=== PATIENT | male | born 1945 | race Caucasian/White ===

== ENCOUNTER 2020-06-17 14:22 | Emergency (ER) | payer MEDICARE, OTHER, SELFPAY ==
[2020-06-17] VITALS (26 sets, daily range): BP systolic 97–136; BP diastolic 55–90; PULSE 69–102; RESP 16–27; TEMP 36.6; O2SAT 95–99
--- NOTE | ~2020-06-17 | CT_ITS ---
EXAMINATION: CT abdomen pelvis w con DATE: 06/17/2020 21:03 INDICATION: Flank pain and vomiting TECHNIQUE: Computed tomography (CT) of the abdomen and pelvis was performed with 100 cc Omnipaque 350 intravenous contrast. Automated exposure control and iterative reconstruction technique were employe d. Exam dose: 895.05 mGy-cm total exam DLP. COMPARISON: 05/13/2018 CT abdomen and pelvis FINDINGS: There is some peripheral interstitial fibrosis and honeycombing in the lower lobes primaril y; consider mild usual interstitial pneumonia. There are emphysematous change of the lungs, most nota jose in the lingula. Normal heart size. No pericardial or pleural effusion. Coronary artery calcification. The liver, gallbladder, bile ducts, pancreas, pancreatic duct, spleen and adrenal glands are unremark able. 2.1 cm upper pole left renal cyst and very small lower pole left renal cyst. 6 mm probable mid right renal cyst. No urinary tract calculus or hydroureteronephrosis is detected. There is atherosclerotic calcification and mild distal abdominal aortic ectasia, but no aneurysm. No intraperitoneal or retroperitoneal or pelvic mass lesion or adenopathy or ascites is detected. Normal appendix. There are scattered colonic diverticula; no CT evidence of diverticulitis. There are some fluid level s in the small bowel and colon which may indicate enterocolitis. No bowel obstruction, bowel wall thi ckening, pneumatosis or intraperitoneal free air. Mild prostate enlargement. The urinary bladder and prostate gland and seminal vesicles are otherwise unremarkable. Status post mesh anterior abdominal wall repair. Small fat-containing umbilical hernia. Recent anterior right sixth, seventh and eighth rib fractures. Diffuse idiopathic skeletal hyperostosis of the thoracic spine. Mild degenerative change of the lumba r spine. Probable bone island of left femoral head. IMPRESSION: Emphysema and possible mild usual interstitial pneumonia Probable renal cysts Diverticulosis of the colon; occasional small bowel air-fluid levels and some colonic air-fluid level s, which may indicate enterocolitis Recent anterior right sixth, seventh and eighth rib fractures Reviewed, dictated and finalized at [facility]. Reviewed, dictated and finalized at location [facility]. ID CAR MECHANIC IMPRESSION: Emphysema and possible mild usual interstitial pneumonia Probable renal cysts Diverticulosis of the colon; occasional small bowel air-fluid levels and some c olonic air-fluid levels, which may indicate enterocolitis Recent anterior right sixth, seventh and eighth rib fractures
--- NOTE | ~2020-06-17 | XR_ITS ---
EXAMINATION: XR chest 1V portable DATE: 06/17/2020 16:26 INDICATION: Cough and shortness of breath. TECHNIQUE: A single frontal view of the chest was obtained. COMPARISON: Chest single view 05/13/2018, CT abdomen and pelvis 05/13/2018, chest CT 08/30/2007 FINDINGS: There are airspace opacities in the midlung zones bilaterally. There is a diffuse interstit ial pattern in the lungs. No pleural effusion or pneumothorax. The heart size is normal. IMPRESSION: 1. Diffuse lung disease, likely pneumonia or mild pulmonary edema superimposed on a combination of em physema and mild chronic interstitial lung disease. Reviewed, dictated and finalized at location [facility]. NG SUPERVISOR IMPRESSION: 1. Diffuse lung disease, likely pneumonia or mild pulmonary edema superimposed on a combination of emphysema and mild chronic interstitial lung disease.
--- NOTE | 2020-06-17 14:31 | PC.NURSE ---
Pt states is taking ibuprofen as needed, but is allergic in heavy doses .
--- NOTE | 2020-06-17 14:32 | ECG_ITS ---
Measurements Intervals [place] Rate: 78 P: 51 NC: 168 QRS: 37 QRSD: 85 T: 24 QT: 382 QTc: 435 Interpretive Statements SINUS RHYTHM VENTRICULAR PREMATURE COMPLEXES EARLY PRECORDIAL R/S TRANSITION BASELINE ARTIFACT- I, III, AVR, AVL BORDERLINE ECG Electronically Signed On 06-17-2020 15:04:06 MOLECULAR GENETIC PATHOLOGIST by Humberto Marcus D.O.
[2020-06-17 14:50] LABS: Basophils Percent Auto 0.3 % (0.2-1.2); Eosinophils Percent Auto 0.5 % (0-4.4); Hematocrit 37.8 % (42.0-52.0); Hemoglobin 12.4 g/dL (14.0-18.0); Immature Granulocyte Absolute 0.04 K/mm3 (0.00-0.031); Immature Granulocyte Percent A 0.6 % (0-0.5); Lymphocytes Absolute Auto 0.67 K/mm3 (0.9-3.2); Lymphocytes Percent Auto 10.8 % (18.3-44.2); Mean Corpuscular HGB Conc 32.8 g/dl (32-36); Mean Corpuscular Hemoglobin 27.4 pg (26-34); Mean Corpuscular Volume 83.4 fl (80-100); Mean Platelet Volume 11.3 fl (7.4-10.4); Monocytes Absolute Auto 0.6 K/mm3 (0.1-0.6); Monocytes Percent Auto 9.2 % (2.6-8.5); Neutrophils Absolute Auto 4.9 K/mm3 (1.3-6.7); Neutrophils Percent Auto 78.6 % (45.5-73.1); Platelet Count Result 169 k/mm3 (150-375); Red Blood Count 4.53 M/mm3 (4.6-6.20); Red Cell Distribution Width 13.9 % (11.5-14.5); White Blood Count 6.2 K/mm3 (4.5-10.0)
[2020-06-17 15:03] LABS: Alanine Aminotransferase 22 U/L (4-50); Albumin Level 4.3 g/dL (3.5-5.1); Alkaline Phosphatase 88 U/L (38-126); Anion Gap 11 mmol/L (8-16); Aspartate Amino Transferase 36 U/L (17-59); Bilirubin,Total 0.7 mg/dL (0.2-1.3); Blood Urea Nitrogen 28 mg/dL (9-20); Calcium 9.5 mg/dL (8.4-10.2); Carbon Dioxide 26 mmol/L (22-30); Chloride 100 mmol/L (98-107); Estimated CRCL calculation 53 ml/min; Estimated Glomerular Filt Rate 54; Glucose 109 mg/dL (75-110); Potassium 4.7 mmol/L (3.4-5.0); Sodium 137 mmol/L (137-145)
--- NOTE | 2020-06-17 16:30 | PC.NURSE ---
patient brought back to ED room H2 with c/o nausea and cough. see triage notes. patient has been in our waiting area for a few hours now due to no available beds in ED. labs were drawn in triage. patient has urine specimen at bedside but lid has fallen off and urine is in bag. patient awae that we will need another urine specimen. SL inserted. patient placed on nurse monitoring. patient denies known exposure to Covid. hx of bronchitis and pneumonia in the past. denies known fever at home. alert. oriented.
[2020-06-17 16:56] LABS: Lipase 187 U/L (23-300)
[2020-06-17 17:06] LABS: NT Pro B Type Natriuretic Pept 94 PG/ML (5-100)
--- NOTE | 2020-06-17 17:30 | PC.NURSE ---
resting on stretcher. no change in condition. aware of current treatment plan and expected treatment time. on bus driver/monitor. has call light in reach.
[2020-06-17 18:30] LABS: Lactic Acid Reflex 1.1 mmol/L (0.7-2.1)
[2020-06-17] MEDS: SODIUM CHLORIDE 0.9% IV 1,000 ML 999 ML IV CONT (18:35)
--- NOTE | 2020-06-17 18:35 | PC.NURSE ---
patient has ice water. IVF continue. will attempt to give us another urine specimen. urinal at bedside. now in room. both updated on current treatment plan and expected wait time.
--- NOTE | 2020-06-17 19:11 | ED.WEAKNESS ---
HPI - Weakness General Chief complaint: Weakness Stated complaint: cough x7 days, vomiting, low back pain Time Seen by Provider: 06/17/20 16:24 Source: RN notes reviewed History of Present Illness HPI Narrative: Patient presents emergency room from home for cough. Patient states he has had a cough for the past 10 days that has been minimally productive of yellow sputum. States that fit with this he has had a general feeling of fatigue also notes some bilateral lower back pain and intermittent nausea and vomiting. He denies having fevers or chills chest pain vision changes numbness or tingling in extremities abdominal pain diarrhea or any other symptoms. Patient states he does have a history of COPD but is not on any inhalers states he is scheduled to have his first appointment with Dr. Qureshi in 2 days Related Data Allergies Allergy/AdvReac Type Severity Reaction Status Date / Time ibuprofen Allergy Unknown Swelling Verified 03/01/17 19:06 Review of Systems Review of Systems: Narrative: Gen.: Denies fevers or chills Eyes: Denies eye pain or visual change ENT: Denies congestion Respiratory: Denies shortness of breath reports cough CV: Denies chest pain or palpitations GI: Denies abdominal pain or diarrhea reports intermittent nausea and emesis denies burning, urgency, frequency or hematuria Musculoskeletal: Reports low back pain Neuro: Denies numbness, tingling, weakness or focal weakness Skin: Denies rash Except as documented, all other systems reviewed and negative [facility] Past Medical History Medical History (Updated 06/17/20 @ 21:51 by Prieto Esqueda DO) COPD (chronic obstructive pulmonary disease) Social History Social History (Updated 06/17/20 @ 21:49 by Prieto Esqueda DO) Smoking status: Never smoker Gender identity (if verbalized by the patient): Male Exam Narrative: Exam Narrative: APPEARANCE: No acute distress, nontoxic, resting in bed EYES: EOMI HEENT: Normocephalic, atraumatic, OMM RESPIRATORY: No respiratory distress Clear to auscultation bilaterally with no rhonchi wheezing or rales. CARDIOVASCULAR: Regular rate and rhythm without murmurs rubs or gallops. ABDOMINAL: Soft, nontender, nondistended, no rebound or guarding MUSCULOSKELETAl: Moves all extremities. No clubbing, cyanosis or edema. Back: No midline thoracic or lumbar tenderness palpation, no tenderness palpation of the bilateral flanks or lower lumbar spine NEURO: Awake and alert x 4. Following commands, speech normal, no focal deficits SKIN:: Warm, dry. No rashes lesions or abrasions PSYCHIATRIC: Normal affect/mood, Course Course Emergency Course: Review patient CT scan of the abdomen pelvis got enterocolitis is the patient has no abdominal pain no diarrhea no current nausea Discussed with patient his CT scan of his chest. He states he did have a fall approximately 1 month ago when he struck the right side of his ribs and believes this is when he had his rib fractures Discussed with patient results of workup and diagnosis. Discussed need for follow-up with primary care, proper use of medication, and reasons to return to the emergency department. Patient understands and agrees to current treatment plan discussed Covid swab and need for self isolation Vital Signs Vital signs: Vital Signs Temperature 97.9 F 06/17/20 14:27 Pulse Rate 76 06/17/20 14:27 Respiratory Rate 18 06/17/20 14:27 Blood Pressure 98/60 L 06/17/20 14:27 Pulse Oximetry 98 06/17/20 14:27 Temperature 97.9 F 06/17/20 14:27 Pulse Rate 74 06/17/20 20:45 Respiratory Rate 20 06/17/20 20:45 Blood Pressure 97/58 L 06/17/20 17:46 Pulse Oximetry 98 06/17/20 20:45 MDM - Weakness Lab Data Result diagrams: 06/17/20 14:35 06/17/20 14:35 Labs: Lab Results 06/17/20 06/17/20 06/17/20 Range/Units 14:35 14:35 14:35 WBC 6.2 (4.5-10.0) K/mm3 RBC 4.53 L (4.6-6.20) M/mm3 Hgb 12.4 L (14.0-18.0) g
[2020-06-17 19:41] LABS: Add Urine Microscopic? YES; Appearance Urine Cloudy (Clear); Bacteria Urine Trace /hpf; Bilirubin Urine Negative (Negative); Blood Urine Negative (Negative); Color Urine Yellow (Yellow); Glucose Urine UA Negative (Negative); Ketones Urine Negative (Negative); Leukocyte Esterase Ur Negative LEU/UL (Negative); Mucus Urine Rare /lpf; Nitrate Urine Negative (Negative); Protein Urine 2+ mg/dL (Negative); RBC Urine 0-2 /hpf (0-2); Specific Grav Ur 1.029 (1.001-1.035); Squamous Epithelial Cell Urine Few /hpf (Few); Urobilinogen Urine Negative mg/dL (<2.0); WBC Urine 0-3 /hpf
--- NOTE | 2020-06-17 19:49 | PC.NURSE ---
resting on stretcher. in room. waiting for CT. urine resulted. denies needs. call light in reach.
--- NOTE | 2020-06-17 21:10 | PC.NURSE ---
patient back in room from CT. waiting for results. back on monitor. in room. patient wants to eat. advised to wait for CT results.
--- NOTE | 2020-06-17 22:25 | PC.NURSE ---
received order from MD for Covid swab prior to discharge.
[2020-06-18 14:13] LABS: SARS-CoV-2 RNA PCR Positive
== END 2020-06-17 22:37 | disposition home or self-care (01) ==
PROVIDERS: Emergency Medicine; Emergency Provider Emergency Medicine
DX: U07.1 COVID-19 (principal); K57.30 Diverticulosis of large intestine without perforation or abscess without bleeding; J44.9 Chronic obstructive pulmonary disease, unspecified
CPT/HCPCS: 36415; 71045; 74177; 80053; 81001; 83605; 83690; 83880; 85025; 87040; 87635; 93005; 96360; 99284; C9803; J7030; Q9967; U0003

== ENCOUNTER 2024-01-13 15:16 | Inpatient (IN) | payer MEDICARE, OTHER, SELFPAY ==
--- NOTE | ~2024-01-13 | CT_ITS ---
CTA brain carotid Ordering provider: Landon Browning PA-C History: . diplopia, dizziness . Comparison: None. Technique: CT angiogram head and neck was performed following timed intravenous injection of contrast . Thin slice axial images and reformatted coronal images were obtained. Three dimensional reformatted images of the brain were also obtained using a [employer] workstation. Radiation reduction technique utilized. FINDINGS: HEAD: --ANTERIOR AND MIDDLE CEREBRAL ARTERIES AND BRANCHES: Normal caliber and contour. --INTERNAL CAROTID ARTERIES: no significant stenosis. No occlusion. --BASILAR ARTERY AND BRANCHES: Small caliber and normal contour. No atheromatous disease. --POSTERIOR CEREBRAL ARTERIES: Normal caliber and contour --POSTERIOR COMMUNICATING ARTERIES: Both continues as posterior cerebral arteries. --ANEURYSM: None visualized. --BRAIN: Please refer to report of CT head performed the same day. --BONES AND SUPERFICIAL SOFT TISSUES: Please refer to report of CT head performed the same day. --PARANASAL SINUSES AND MASTOIDS: Please refer to report of CT head done the same day. NECK: --RIGHT CERVICAL CAROTID SYSTEM: Mild atheromatous disease of the carotid bulb and proximal internal carotid artery without significant stenosis. Percent stenosis per NASCET criteria is 20%. No carotid dissection. Otherwise, no significant atheromatous disease or stenosis of the cervical carotid syste m. --LEFT CERVICAL CAROTID SYSTEM: Mild atheromatous disease of the carotid bulb and proximal internal c arotid artery without significant stenosis. Percent stenosis per NASCET criteria is 30%. No carot id dissection. Otherwise, no significant atheromatous disease or stenosis of the cervical carotid system. --VERTEBRAL ARTERIES: Normal caliber and contour. --VISUALIZED AORTIC ARCH AND BRANCHING VESSELS: Mild atheromatous disease but no significant stenosis . --SOFT TISSUES: Normal. --CERVICAL SPINE: Age appropriate degenerative changes. IMPRESSION: 1. CTA head and neck. Percent stenosis per NASCET criteria is 30% on the left side. 2. Normal intracranial CTA. Reviewed, dictated and finalized at location A.
--- NOTE | ~2024-01-13 | MR_ITS ---
EXAMINATION: MR brain/brain stem wo/w con DATE: 01/14/2024 09:04 INDICATION: Posterior circulation stroke. TECHNIQUE: Magnetic resonance imaging (MRI) of the brain and brainstem was performed without intraven ous contrast. Sequences included sagittal and axial T1-weighted SE, axial diffusion-weighted FS SE, a xial T2*-weighted GRE, axial T2-weighted FLAIR Propeller, and axial T2-weighted Propeller. Apparent d iffusion coefficient (ADC) maps were created. 20 cc contrast administered. COMPARISON: CTA brain dated 01/13/2024. FINDINGS: Generalized atrophy. There are scattered moderate periventricular and subcortical white mat ter changes, most likely related to small vessel ischemic disease (microangiopathy). No acute intracr anial hemorrhage, infarction, mass or mass effect. No abnormal contrast enhancement. Orbits are symme tric without disconjugate gaze. Paranasal sinuses are unremarkable. Structures of the posterior fossa including 7/8th cranial nerve complexes are unremarkable. IMPRESSION: 1. No acute intracranial abnormality. 2: Chronic age-related findings. Reviewed, dictated and finalized at location B.
--- NOTE | ~2024-01-13 | CT_ITS ---
CT brain wo con Ordering provider: Landon Browning PA-C History: 78 years Male with . diplopia, dizziness . Comparison: None. Technique: CT of the head without contrast. Radiation reduction technique utilized. FINDINGS: BRAIN PARENCHYMA AND CSF SPACES: Deep white matter ischemic changes. Slight ventricular dilatation. N o midline shift, mass effect or hemorrhage. The brain parenchyma and CSF spaces are otherwise normal . VISUALIZED PARANASAL SINUSES: Well aerated. MASTOIDS: Well aerated. BONES: The bones appear intact. SOFT TISSUES: Visualized nasopharynx is normal. Superficial soft tissues are normal. IMPRESSION: No acute intracranial findings. Reviewed, dictated and finalized at location A.
[2024-01-13 15:28] VITALS: BP 136/73; PULSE 58; RESP 20; TEMP 36.4; O2SAT 97
--- NOTE | 2024-01-13 17:24 | ED.DIZZY ---
HPI - Dizziness General Chief Complaint: Dizziness <Landon Browning PA-C - Last Filed: 01/13/24 21:06> Stated Complaint: vision changes since tuesday <Landon Browning PA-C - Last Filed: 01/13/24 21:06> Time Seen by Provider: 01/13/24 17:01 <Landon Browning PA-C - Last Filed: 01/13/24 21:06> Source: patient <MEMO Rodríguez Last Filed: 01/13/24 21:06> Mode of arrival: ambulatory <MEMO Rodríguez Last Filed: 01/13/24 21:06> Limitations: no limitations <MEMO Rodríguez Last Filed: 01/13/24 21:06> History of Present Illness HPI Narrative: This is a 78-year-old male with PMH of CAD, HTN, T2 dm, COPD who presents to the ED for chief complaint of type 0 P a and dizziness for the past 4 5 days. Patient reports that the vision changes seem to be gradually worsening. Reports it is a binocular diplopia. When 1 eye is, it covered goes away. Reports some dull headache, worse over the right eye. Denies pain with eye movements. He also reports feeling quite dizzy. He reports history of vertigo in the past but this seems different. Denies chest pain, shortness of breath, cough, focal numbness, weakness, visual field defect. His is here with him and denies any abnormal behaviors, confusion, falls or head injury. Denies slurred speech or speech changes. Last known well 5 days ago. <Landon Browning PA-C - Last Filed: 01/13/24 21:06> Related Data Home Medications: Home Medications Medication Instructions Recorded Confirmed aspirin 81 mg tablet,delayed 81 mg PO DAILY 06/19/20 07/19/22 release (Adult Aspirin Regimen) atorvastatin 40 mg tablet 40 mg PO DAILY 06/19/20 07/19/22 lisinopril 20 mg tablet 20 mg PO DAILY 06/19/20 07/19/22 metoprolol tartrate 25 mg tablet 12.5 mg PO BID 06/19/20 07/19/22 omeprazole 20 mg capsule,delayed 20 mg PO DAILY 06/19/20 07/19/22 release amlodipine 5 mg tablet (Norvasc) 5 mg PO DAILY 01/13/24 01/13/24 folic acid 1 mg tablet 01/13/24 folic acid 1 mg tablet 01/13/24 lisinopril 10 mg tablet mg 01/13/24 lisinopril 10 mg tablet mg 01/13/24 sertraline 100 mg tablet (Zoloft) 100 mg PO DAILY 01/13/24 01/13/24 <Landon Browning PA-C - Last Filed: 01/13/24 21:06> Allergies/Adverse Reactions: Allergies Allergy/AdvReac Type Severity Reaction Status Date / Time ibuprofen Allergy Unknown Swelling Verified 10/20/23 14:10 <MEMO Rodríguez Last Filed: 01/13/24 21:06> Review of Systems Review of Systems: All systems as dictated in HPI <MEMO Rodríguez Last Filed: 01/13/24 21:06> PMFSH Past Medical History Medical History: Medical History COPD (chronic obstructive pulmonary disease) Suspected 2019-nCoV infection <MEMO Rodríguez Last Filed: 01/13/24 21:06> Social History Social History: Social History Smoking packs per day: 4 Smoking cigarettes per day: 80.0 Years smoked: 45 Smoking pack-years: 180.00 Smoking status: Former smoker Tobacco type: cigarettes Smoking end date: 03/24/05 Alcohol intake: current Drinks per week: 6 Alcohol use details: beer Substance use: never Substance use type: does not use Lack of Transportation: No Lack of Food: Never True Current Housing: I Have Housing Concerned About Future Housing: No Difficulty Paying Gas/Electric Bills: No Difficulty Paying for Meds: No Currently Unemployed: No Education: Associate Degree Difficulty w/ Childcare or Family Care: No Gender identity (if verbalized by the patient): Male <MEMO Rodríguez Last Filed: 01/13/24 21:06> Exam Narrative: GENERAL: Well-appearing, well-nourished, and in no acute distress. HEAD: Normocephalic, atraumatic. EYES: PERRLA. There is asymmetric movements during extraocular movements. the left eye seems to be exhibiting dysconjuga
--- NOTE | 2024-01-13 17:33 | ECG_ITS ---
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 Measurements Intervals [place] Rate: 62 P: 59 [place]: 224 QRS: 23 QRSD: 89 T: 29 QT: 422 QTc: 431 Interpretive Statements SINUS RHYTHM WITH FIRST DEGREE AV BLOCK OTHERWISE NORMAL ECG No previous ECG available for comparison Electronically Signed On 01-14-2024 08:04:39 CDT by David Madden M.D.
[2024-01-13 17:47] VITALS: BP 156/75; PULSE 63; RESP 16; TEMP 36.6; O2SAT 99
[2024-01-13 17:53] LABS: Basophils Percent Auto 0.5 % (0.2-1.2); Eosinophils Absolute Auto 0.1 K/mm3 (0-0.3); Eosinophils Percent Auto 1.5 % (0-4.4); Hemoglobin 11.8 g/dL (14.0-18.0); Immature Granulocyte Absolute 0.01 K/mm3 (0.00-0.031); Immature Granulocyte Percent A 0.3 % (0-0.5); Lymphocytes Percent Auto 25.5 % (18.3-44.2); Mean Corpuscular HGB Conc 32.8 g/dl (32-36); Mean Corpuscular Hemoglobin 26.9 pg (26-34); Mean Corpuscular Volume 82.2 fl (80-100); Mean Platelet Volume 11.2 fl (7.4-10.4); Monocytes Absolute Auto 0.4 K/mm3 (0.1-0.6); Monocytes Percent Auto 10.5 % (2.6-8.5); Neutrophils Absolute Auto 2.4 K/mm3 (1.3-6.7); Neutrophils Percent Auto 61.7 % (45.5-73.1); Platelet Count Result 143 k/mm3 (150-375); Red Blood Count 4.38 M/mm3 (4.6-6.20); Red Cell Distribution Width 14.3 % (11.5-14.5); White Blood Count 3.9 K/mm3 (4.5-10.0)
[2024-01-13 17:57] LABS: Estimated CRCL calculation 53 ml/min; Estimated Glomerular Filt Rate 59
[2024-01-13 18:03] LABS: Alanine Aminotransferase 21 U/L (6-50); Albumin Level 4.6 g/dL (3.5-5.1); Alkaline Phosphatase 92 U/L (38-126); Anion Gap 7 mmol/L (4-12); Aspartate Amino Transferase 30 U/L (17-59); Bilirubin,Total 0.7 mg/dL (0.2-1.3); Blood Urea Nitrogen 16 mg/dL (9-20); Calcium 9.1 mg/dL (8.4-10.2); Carbon Dioxide 29 mmol/L (22-30); Chloride 105 mmol/L (98-107); Estimated CRCL calculation 57 ml/min; Estimated Glomerular Filt Rate > 60; Glucose 74 mg/dL (65-110); Potassium 3.8 mmol/L (3.4-5.0); Sodium 141 mmol/L (137-145)
[2024-01-13 18:11] LABS: Prothrombin Time 13.9 Seconds (11.1-14.7)
[2024-01-13 18:12] LABS: Partial Thromboplastin Time 33.3 Seconds (22.3-36.8)
[2024-01-13] MEDS: MECLIZINE HCL 25 MG TABLET PO (18:12)
[2024-01-13] MEDS: ACETAMINOPHEN 500 MG TABLET 1000 MG PO (18:12)
--- NOTE | 2024-01-13 19:28 | PC.NURSE ---
this rn assumed care of patient. this rn took patient report from GENOVEVA Barry.
[2024-01-13 20:14] VITALS: BP 146/78; PULSE 56; RESP 18; O2SAT 94
[2024-01-13] MEDS: ATORVASTATIN 40 MG TABLET PO (20:27)
[2024-01-13] MEDS: CLOPIDOGREL BISULFATE 300 MG TABLET PO (20:27)
[2024-01-13 21:38] VITALS: BP 149/70; PULSE 63; RESP 20; O2SAT 100
--- NOTE | 2024-01-13 22:10 | ADMGEN ---
This patient, Jose Baker, was admitted to Medical Room 342-01. Patient/family oriented to hospital policies and general routines including ID bracelet, bed and alarms, visiting hours, pain management, procedures, bathroom and other care routines, personal items, smoking policy, room service/diet, and visiting hours. Information on how to activate the Rapid Response Team has been discussed. Patient/Family are encouraged to report perceived risks to care and to ask questions if they do not understand what they are told or what they should do.
--- NOTE | 2024-01-13 22:15 | PM.IMHP ---
H&P: HPI History of Present Illness Date/Time: 01/13/24 22:15 Chief Complaint: Patient brought to the ER for evaluation by with complaints of double vision and dizziness for 4-5 days Narrative: 78 years old physically active white gentleman is complaining of double vision and dizziness for the last 4-5 days. He says that the double vision is slowed worsening. When he covers one eye, the double vision goes away. He is also complaining of some dull headache over the right eye. He is also complaining of feeling dizzy. He did see any doctors as he thought his the symptoms will go away, but they are slowly worsening. Patient came to the ER for evaluation and workup. Neurology was consulted. 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 He is being admitted for tele monitoring, brain MRI, neurology evaluation, further workup and medical management. Review of Systems Review of Systems: 14 systems were reviewed with pertinent positives and negatives per HPI. Except as documented in the HPI/progress notes, all other systems were reviewed and are negative. All systems reviewed & are unremarkable except as noted in HPI and below PMFSH Past Medical History Medical History COPD (chronic obstructive pulmonary disease) Suspected 2019-nCoV infection Social History Social History Smoking packs per day: 4 Smoking cigarettes per day: 80.0 Years smoked: 50 Smoking pack-years: 200.00 Smoking status: Former smoker Tobacco type: cigarettes Second hand tobacco smoke exposure: No Smoking end date: 03/24/05 Alcohol intake: current Drinks per week: 6 Alcohol use details: beer Substance use: never Substance use type: does not use Lack of Transportation: No Lack of Food: Never True Current Housing: I Have Housing Concerned About Future Housing: No Difficulty Paying Gas/Electric Bills: No Difficulty Paying for Meds: No Currently Unemployed: No Education: Associate Degree Difficulty w/ Childcare or Family Care: No Gender identity (if verbalized by the patient): Male Meds Home Medications and Allergies Home Medications Medication Instructions Recorded Confirmed Type aspirin 81 mg tablet,delayed 81 mg PO DAILY 06/19/20 07/19/22 History release (Adult Aspirin Regimen) atorvastatin 40 mg tablet 40 mg PO DAILY 06/19/20 07/19/22 History lisinopril 20 mg tablet 20 mg PO DAILY 06/19/20 07/19/22 History metoprolol tartrate 25 mg tablet 12.5 mg PO BID 06/19/20 07/19/22 History omeprazole 20 mg capsule,delayed 20 mg PO DAILY 06/19/20 07/19/22 History release metformin 1,000 mg tablet,extended 1,000 mg PO DAILY #30 tabs 07/22/22 Rx release 24hr (osmotic) amlodipine 5 mg tablet (Norvasc) 5 mg PO DAILY 01/13/24 01/13/24 History folic acid 1 mg tablet 01/13/24 History folic acid 1 mg tablet 01/13/24 History lisinopril 10 mg tablet mg 01/13/24 History lisinopril 10 mg tablet mg 01/13/24 History sertraline 100 mg tablet (Zoloft) 100 mg PO DAILY 01/13/24 01/13/24 History Allergies Allergy/AdvReac Type Severity Reaction Status Date / Time ibuprofen Allergy Unknown Swelling Verified 01/13/24 22:31 Vital Signs Vital Signs - 24 hr 01/13/24 15:28 01/13/24 17:47 01/13/24 20:14 Temperature 36.4 C L 36.6 C Pulse Rate 58 L 63 56 L Respiratory Rate 20 16 18 Blood Pressure 136/73 156/75 H 146/78 H Pulse Oximetry 97 99 94 Oxygen Delivery Room Air 01/13/24 21:38 Temperature Pulse Rate 63 Respiratory Rate 20 Blood Pressure 149/70 H Pulse Oximetry 100 Oxygen Delivery Exam Narrative: PHYSICAL EXAMINATION: Vital signs: Please see the chart General physical exam: Very 8 years old obese white gentleman pleasant and cooperative with exam, complains of mild dizziness and double vision Head/eyes: Atraumatic, EOMI, PERRLA ENT: Mo
[2024-01-13 22:16] VITALS: BMI 32.6
--- NOTE | 2024-01-13 22:22 | PC.NURSE ---
NOTIFIED OCCASIONAL BABYSITTER REGARDING PHYSICIANS REQUEST FOR PATIENT TO HAVE AN EYE PATCH TO WEAR INTERMITTENTLY.
[2024-01-13 22:24] VITALS: BP 177/60; PULSE 50; RESP 20; TEMP 36.1; O2SAT 100
[2024-01-14] VITALS (11 sets, daily range): BP systolic 129–152; BP diastolic 57–71; PULSE 52–81; RESP 18–20; TEMP 36.1–36.5; O2SAT 97–98
--- NOTE | 2024-01-14 | ECHO_ITS ---
Patient Info Name: Jose Baker Age: 78 years : 1945 Gender: Male Ht: 69 in Wt: 221 lbs BSA: 2.24 m2 HR: 61 bpm BP: 152 / 71 mmHg Heart Rhythm: Sinus Rhythm Technical Quality: Good Exam Date: 01/14/2024 12:46 PM Exam Location: Echo Lab Patient Status: Inpatient Admit Date: 01/13/2024 Staff Ordering Physician: Marysol Levi APRN Obstetrics Nurse Practitioner: Vinicius Feliz RDCS Attending Provider: José Gnun MD Referring Physician: Amita WHITE; Exam Type: CA echo doppler w bubble study Study Info Indications - CVA Complete two-dimensional, color flow and Doppler transthoracic echocardiogram is performed with agitated saline. Contrast/Agitated Saline Contrast/Ag. Saline: Agitated Saline Amount: 20.00 ml Existing IV Access: Yes Summary 1. Normal LV size with vigorous systolic function and normal diastolic function. 2. Moderate aortic valve regurgitation. 3. Agitated saline contrast negative for shunt. Left Ventricle Left ventricular chamber dimension is normal. Left ventricular systolic function is normal, estimated at 65-70%. The left ventricular diastolic function is normal. Right Ventricle Right ventricular chamber dimension is normal. Left Atria Left atrial chamber dimension is normal. Right Atria Right atrial chamber dimension is normal. Atrial Septum Intact interatrial septum visualized by agitated saline imaging. Aortic Valve The aortic valve is trileaflet. There is moderate aortic valve regurgitation. Pulmonic Valve The pulmonic valve is not well visualized. Mitral Valve The mitral valve has normal leaflets. The mitral valve annulus is mildly calcified. Tricuspid Valve The tricuspid valve leaflets are normal. Pericardium/Pleural The pericardium appears normal. Aorta The aortic root size at the sinus of Valsalva is normal. Left Ventricular Outflow Tract Name Value Normal LVOT 2D LVOT Diameter 2.0 cm LVOT Doppler LVOT Peak Gradient 8 mmHg LVOT Mean Gradient 5 mmHg LVOT VTI 33 cm LVOT VTI/AV VTI Ratio 0.7 LVOT Stroke Volume 104 ml LVOT CO 6.3 l/min LVOT CI 2.8 l/min/m2 Pulmonic Valve Name Value Normal PV Doppler PV Peak Gradient 4 mmHg Mitral Valve Name Value Normal MV Doppler MV Peak Gradient 6 mmHg MV Mean Gradient 3 mmHg MV Decel [place] 496 cm/s2 MV PHT 61 ms
[2024-01-14 05:48] LABS: Basophils Percent Auto 0.8 % (0.2-1.2); Eosinophils Absolute Auto 0.1 K/mm3 (0-0.3); Eosinophils Percent Auto 2.4 % (0-4.4); Hematocrit 33.1 % (42.0-52.0); Hemoglobin 10.5 g/dL (14.0-18.0); Immature Granulocyte Absolute 0.02 K/mm3 (0.00-0.031); Immature Granulocyte Percent A 0.5 % (0-0.5); Lymphocytes Absolute Auto 1.05 K/mm3 (0.9-3.2); Lymphocytes Percent Auto 27.6 % (18.3-44.2); Mean Corpuscular HGB Conc 31.7 g/dl (32-36); Mean Corpuscular Hemoglobin 26.3 pg (26-34); Mean Platelet Volume 10.9 fl (7.4-10.4); Monocytes Absolute Auto 0.5 K/mm3 (0.1-0.6); Monocytes Percent Auto 13.9 % (2.6-8.5); Neutrophils Absolute Auto 2.1 K/mm3 (1.3-6.7); Neutrophils Percent Auto 54.8 % (45.5-73.1); Platelet Count Result 128 k/mm3 (150-375); Red Blood Count 3.99 M/mm3 (4.6-6.20); Red Cell Distribution Width 14.4 % (11.5-14.5); White Blood Count 3.8 K/mm3 (4.5-10.0)
[2024-01-14 06:11] LABS: Anion Gap 5 mmol/L (4-12); Blood Urea Nitrogen 16 mg/dL (9-20); Calcium 8.9 mg/dL (8.4-10.2); Carbon Dioxide 29 mmol/L (22-30); Chloride 106 mmol/L (98-107); Estimated CRCL calculation 58 ml/min; Estimated Glomerular Filt Rate > 60; Glucose 105 mg/dL (65-110); Magnesium 1.8 mg/dL (1.6-2.3); Phosphorus 3.8 mg/dL (2.5-4.5); Potassium 3.5 mmol/L (3.4-5.0); Sodium 140 mmol/L (137-145)
[2024-01-14 08:32] LABS: Glucose Point of Care 88 mg/dl (65-105)
[2024-01-14] MEDS: METOPROLOL TARTRATE 12.5 MG TABLET PO ×2 (09:55→20:39)
[2024-01-14] MEDS: ENOXAPARIN 40 MG/0.4 ML SYRINGE SUB-Q (09:55)
[2024-01-14] MEDS: CLOPIDOGREL BISULFATE 75 MG TABLET PO (09:56)
[2024-01-14] MEDS: CHOLECALCIFEROL 1,000 UNITS TABLET 1000 UNITS PO (09:56)
[2024-01-14] MEDS: PANTOPRAZOLE 40 MG TABLET PO (09:56)
[2024-01-14] MEDS: ATORVASTATIN 40 MG TABLET 80 MG PO (09:56)
[2024-01-14] MEDS: FOLIC ACID 1 MG TABLET PO (09:57)
[2024-01-14] MEDS: CYANOCOBALAMIN 500 MCG TABLET PO (09:57)
[2024-01-14] MEDS: lisinopriL 10 MG TABLET PO (09:57)
[2024-01-14] MEDS: SERTRALINE HCL 50 MG TABLET 100 MG PO (09:57)
[2024-01-14] MEDS: ASPIRIN 81 MG ENTERIC TABLET PO (09:57)
[2024-01-14] MEDS: amLODIPine BESYLATE 5 MG TABLET PO (09:57)
--- NOTE | 2024-01-14 10:38 | PM.IMPN ---
Progress Note: A&P Assessment and Plan (1) Acute CVA (cerebrovascular accident): Code(s): I63.9 - Cerebral infarction, unspecified Status: Acute Assessment and Plan: -CT Scan Head was done which ruled out intracranial hemorrhage or infarction -Continuous cardiac telemetry monitoring -CTA brain/ carotids ordered which ruled out any significant vascular stenosis or intracranial hemorrhage -continue Neurovascular checks ordered every 4 hours as per TIA/stroke protocol -check PT/ST/OT evaluation ordered as per TIA/stroke protocol -MRI of the brain and brain stem with and without contrast pending results Neurology consulted from ED -Check TSH and vitamin B12 levels -Fasting lipid profile pending -check 2D echo with bubble study to evaluate cardiac structure and function and to exclude right to left shunt (2) Posttraumatic stress disorder: Code(s): F43.10 - Post-traumatic stress disorder, unspecified Status: Acute (3) Chronic GERD: Code(s): K21.9 - Gastro-esophageal reflux disease without esophagitis Status: Acute Assessment and Plan: -continue home medication (4) Mixed hyperlipidemia: Code(s): E78.2 - Mixed hyperlipidemia Status: Acute Assessment and Plan: -continue home medication (5) CAD (coronary artery disease): Code(s): I25.10 - Atherosclerotic heart disease of [place] coronary artery without angina pectoris Status: Acute Assessment and Plan: -continue telemetry monitoring (6) Hypertension: Code(s): I10 - Essential (primary) hypertension Status: Acute (7) COPD (chronic obstructive pulmonary disease): Code(s): J44.9 - Chronic obstructive pulmonary disease, unspecified Status: Acute Assessment and Plan: -chronic not in exacerbation Plan Continue home medications: VTE Prophylaxis: Lovenox 40 mg subQ DIET: Heart healthy, low risk for aspiration Anticipated hospital stay: > 2 days Code Status: Full Subjective Date/time seen: 01/14/24 10:38 Interval history: 78 yr. male with a PMHx: CAD, HTN, type 2 diabetes not on insulin, COPD not on home oxygen, presented to the ED with a chief complaint ongoing dizziness for > 4 days, He says that the double vision is slowed worsening. When he covers one eye, the double vision goes away. He is also complaining of some dull headache over the right eye. He is also complaining of feeling dizzy. He denied any chest pain shortness a breath, cough, focal numbness or weakness upon arrival. Patient seen this morning, he is resting comfortably in the bed eating breakfast, spouse is by the bedside. He continues to keep her right eye closed citing if he opens both his eyes it causes double vision along with until headache. He denies any overnight events of nausea vomiting fever chills shortness SOB or chest pain. He denies any new onset weakness, slurred speech, numbness tingling facial droop at this time. Review of Systems Review of Systems: All systems reviewed & are unremarkable except as noted in HPI and below Exam Narrative: General physical exam: 78 years old obese white gentleman pleasant and cooperative with exam, complains of mild dizziness and double vision Head/eyes: Atraumatic, EOMI, PERRLA ENT: Moist mucous membranes, nasal passages clear Neck: Supple, full range of motion, trachea midline CVS: S1 + S2, regular rate and rhythm, no murmurs Respiratory: Bilaterally fair air entry in both lung vazquez, mild B/L crackles, symmetric chest expansion, no distress Abdomen: Soft, non-tender, bowel sounds +ve, no organomegaly Extremities: No clubbing, no cyanosis, no edema, no calf tenderness Musculoskeletal: Moves all, adequate range of motion, no muscle spasms Skin: Warm, dry, no jaundice, no cyanosis Neurological: Awake, alert, oriented x 3, cranial nerves II-XII intact, no focal neurological deficits, + binocular diplopia Psychiatric: Normal mood, N
[2024-01-14 11:03] LABS: Free T4 Free Thyroxine Reflex 0.99 ng/dL (0.78-2.19)
--- NOTE | 2024-01-14 11:46 | PCSTNOTE ---
Patient seen for bedside communication evaluation. and daughter present. Patient alert and able to participate in conversatation with HAIR DESIGNER and others. Results of evaluation of auditory comprehension and verbal expression within functional limits. No further speech therapy is recommended. Thank you for this referral. [ End ]
[2024-01-14 12:04] LABS: Total Triiodothyronine (T3) 1.16 NG/ML (0.97-1.69)
--- NOTE | 2024-01-14 17:06 | WPDNEURCNPN ---
Assessment and Plan Assessment and plan (1) Diplopia: Code(s): H53.2 - Diplopia Status: Acute (2) Cranial nerve III palsy, partial, right: Code(s): H49.01 - Third [oculomotor] nerve palsy, right eye Status: Acute Assessment and Plan: Differential diagnosis may include possible ocular myasthenia or Mini Uriarte syndrome. requires follow-up. I shall order a test for acetyl choline receptor antibody Panel. (3) Type II diabetes mellitus: Code(s): E11.9 - Type 2 diabetes mellitus without complications Status: Acute (4) CAD (coronary artery disease): Code(s): I25.10 - Atherosclerotic heart disease of [place] coronary artery without angina pectoris Status: Acute Assessment and Plan: History of coronary stenting in the past. However he was on aspirin and atorvastatin prior to admission. Plavix has been added in view of the suspicion of a stroke when he presented emergency room last night. (5) Hypertension: Code(s): I10 - Essential (primary) hypertension Status: Acute Plan I do not find any appreciable asymmetry of the pupils. He appears to have possible mild restriction of the medial rectus on the right side and slight droopy right eyelid. headache can be due to the strain of diplopia . MRI of the brain did not show any significant abnormality. CT angiogram head and neck did not show any large vessel occlusion. Also did not show anything specifically in vertebrobasilar territory. The patient already on aspirin and 40 mg of atorvastatin prior to admission. He has been followed up at [facility] also the lab data from here available on our system and I did review them. Based upon these all suggest to keep him on aspirin Plavix and 80 mg of for atorvastatin for 3 weeks and further reduction to a single antiplatelets and if necessary of the statin can be made at that time. I will also suggest to check his if he does: Receptor antibody titers and follow up in Neurology office in 4 weeks time. I explained to him that sometimes it may get better however if the symptoms of diplopia persist and if his antibody titers for myasthenia are normal we may seek an opinion from a neuro morphologist. I noted that his blood count shows mild pancytopenia and I shall suggest to consider further evaluation by a release of information clerk. It could be an issue with the use of dual antiplatelets. Patient should be instructed regarding the risks risk of bleeding. If he has any signs of bruising or bleeding he needs to stop antiplatelets or come to emergency room. [facility] the hemoglobin A1c was 6.4. His echocardiogram was also done today which did not show any significant abnormalities. There is no evidence for AV shunt. Thank you very much for allowing me see this patient. Consult date: 01/14/24 HPI: Jose Baker is a 78 year old male With complaints of diplopia was started for 5 days ago. The patient feels that symptoms are getting worse. He has to close his right eye to avoid seeing double. He denies any drooping of the eyes or any difficulty speech or swallowing. He never had symptoms like this in the past. Symptoms have gradually evolved. He also has some pain behind the right eye which he described as being mild. He also felt somewhat dizzy. No difficulty with walking. He denies any weakness in upper lower limbs. No history of trauma or febrile illness. Review of Systems Review of Systems: All systems reviewed & are unremarkable except as noted in HPI and below [facility] Past Medical History Medical History (Updated 01/14/24 @ 17:13 by Ruy Reyes MD) COPD (chronic obstructive pulmonary disease) Cranial nerve III palsy, partial, right Diplopia Suspected 2019-nCoV infection Family History Family History Other Family history non-contributory Social History Social His
[2024-01-14 17:17] LABS: Glucose Point of Care 108 mg/dl (65-105)
[2024-01-15] VITALS: PULSE 62
[2024-01-15 04:00] VITALS: PULSE 48
[2024-01-15 06:00] VITALS: BP 154/81; PULSE 65; RESP 16; TEMP 36.2; O2SAT 94
[2024-01-15 06:00] LABS: Basophils Percent Auto 0.7 % (0.2-1.2); Eosinophils Absolute Auto 0.1 K/mm3 (0-0.3); Eosinophils Percent Auto 2.7 % (0-4.4); Hematocrit 35.1 % (42.0-52.0); Hemoglobin 11.1 g/dL (14.0-18.0); Immature Granulocyte Absolute 0.02 K/mm3 (0.00-0.031); Immature Granulocyte Percent A 0.5 % (0-0.5); Immature Platelet Fraction Pct 6.1 % (0.9-11.2); Lymphocytes Absolute Auto 0.93 K/mm3 (0.9-3.2); Lymphocytes Percent Auto 22.7 % (18.3-44.2); Mean Corpuscular HGB Conc 31.6 g/dl (32-36); Mean Corpuscular Hemoglobin 26.2 pg (26-34); Mean Platelet Volume 11.3 fl (7.4-10.4); Monocytes Absolute Auto 0.4 K/mm3 (0.1-0.6); Monocytes Percent Auto 10.3 % (2.6-8.5); Neutrophils Absolute Auto 2.6 K/mm3 (1.3-6.7); Neutrophils Percent Auto 63.1 % (45.5-73.1); Platelet Count Result 130 k/mm3 (150-375); Red Blood Count 4.23 M/mm3 (4.6-6.20); Red Cell Distribution Width 14.5 % (11.5-14.5); White Blood Count 4.1 K/mm3 (4.5-10.0)
[2024-01-15 06:09] LABS: Anion Gap 6 mmol/L (4-12); Blood Urea Nitrogen 16 mg/dL (9-20); Calcium 9.2 mg/dL (8.4-10.2); Carbon Dioxide 29 mmol/L (22-30); Chloride 106 mmol/L (98-107); Estimated CRCL calculation 58 ml/min; Estimated Glomerular Filt Rate > 60; Glucose 98 mg/dL (65-110); Potassium 3.6 mmol/L (3.4-5.0); Sodium 141 mmol/L (137-145)
[2024-01-15 08:36] LABS: Glucose Point of Care 87 mg/dl (65-105)
[2024-01-15] MEDS: ENOXAPARIN 40 MG/0.4 ML SYRINGE SUB-Q (10:05)
[2024-01-15] MEDS: ATORVASTATIN 40 MG TABLET 80 MG PO (10:05)
[2024-01-15] MEDS: ASPIRIN 81 MG ENTERIC TABLET PO (10:06)
[2024-01-15] MEDS: SERTRALINE HCL 50 MG TABLET 100 MG PO (10:06)
[2024-01-15] MEDS: lisinopriL 10 MG TABLET PO (10:06)
[2024-01-15] MEDS: CLOPIDOGREL BISULFATE 75 MG TABLET PO (10:06)
[2024-01-15] MEDS: CHOLECALCIFEROL 1,000 UNITS TABLET 1000 UNITS PO (10:06)
[2024-01-15] MEDS: amLODIPine BESYLATE 5 MG TABLET PO (10:06)
[2024-01-15] MEDS: FOLIC ACID 1 MG TABLET PO (10:06)
[2024-01-15 10:07] VITALS: PULSE 65
[2024-01-15] MEDS: PANTOPRAZOLE 40 MG TABLET PO (10:07)
[2024-01-15] MEDS: METOPROLOL TARTRATE 12.5 MG TABLET PO (10:07)
[2024-01-15] MEDS: CYANOCOBALAMIN 500 MCG TABLET PO (10:08)
[2024-01-15] MEDS: ACETAMINOPHEN 325 MG TABLET 650 MG PO (10:15)
--- NOTE | 2024-01-15 12:26 | PM.DS ---
DS: Admitting Diagnosis Discharge Date 01/15/2024 Admitting Diagnosis Diplopia DS: Discharge Diagnosis Discharge Diagnosis (1) Cranial nerve III palsy, partial, right: Code(s): H49.01 - Third [oculomotor] nerve palsy, right eye Status: Acute (2) Diplopia: Code(s): H53.2 - Diplopia Status: Acute DS: Summary Hospital Course Reason for hospitalization: Patient brought to the ER for evaluation by with complaints of double vision and dizziness for 4-5 days Hospital Course: 78 years old physically active white gentleman is complaining of double vision and dizziness for the last 4-5 days. He says that the double vision is slowed worsening. When he covers one eye, the double vision goes away. He is also complaining of some dull headache over the right eye. He is also complaining of feeling dizzy. He did see any doctors as he thought his the symptoms will go away, but they are slowly worsening. Patient came to the ER for evaluation and workup. Neurology was consulted. 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 He is being admitted for tele monitoring, brain MRI, neurology evaluation, further workup and medical management. Patient was initially worked up for CVA, upon arrival patient Idris suggested patient may possible mild restriction of the medial rectus right side and slightly droopy right eyelid. CT angiogram head and neck did not show any large vessel occlusion. Echocardiogram did not show any significant abnormalities there was no evidence of AV shunt. MRI brain revealed mild chronic ischemic changes noted no acute infarct. 01/15/2024 patient seen this he denies any overnight events, reports continued right eyelid droop, along with double vision when he attempts to open both eyes. He denies any nausea vomiting headache fever chills SOB or chest pain. He would like to be discharged home as per neurologist's and follow-up with Ophthalmology outpatient as discussed. Also discussed the need for patient to follow-up with Hematology due to findings of pancytopenia. Status at Discharge Functional status at discharge: independent ambulation Overall status at discharge: patient is progressing back to baseline Time Spent with Patient Time attestation: Total time spent providing and/or coordinating discharge services: Exam Narrative: General: A well-developed, nontoxic-appearing gentlemen, sitting up in bed. HEENT: right side eyelid droop, Oral mucosa moist. Neck: Supple. No midline cervical tenderness. Respiratory: Respirations are non- labored and lungs are clear to auscultation bilaterally. Cardiovascular: Regular rate and rhythm with S1-S2. Gastrointestinal: Abdomen is soft, non-tender, and non-distended with positive bowel sounds. Skin: Warm and dry. No rash or lesions on limited exam. Extremities: No cyanosis, clubbing, or edema. Radial and pedal pulses intact. Neurological: Alert and oriented. Cranial nerves 2-12 are grossly intact. No gross focal deficits to casual conversation. Psychiatric: Pleasant and cooperative with normal mood and affect. Judgment and insight intact. DS: Data Data Completed and Pending Labs on day of discharge: Labs from last 24 hours 01/15/24 01/15/24 01/14/24 08:33 05:21 17:10 WBC 4.1 L RBC 4.23 L Hgb 11.1 L Hct 35.1 L MCV 83.0 MCH 26.2 MCHC 31.6 L RDW 14.5 Plt Count 130 L MPV 11.3 H Immature Gran % (Auto) 0.5 Neut % (Auto) 63.1 Lymph % (Auto) 22.7 [place] % (Auto) 10.3 H Eos % (Auto) 2.7 Baso % (Auto) 0.7 Lymph # (Auto) 0.93 [place] # (Auto) 0.4 Eos # (Auto) 0.1 Baso # (Auto) 0.0 Abs Immat Gran (auto) 0.02 Absolute Neuts (auto) 2.6 Absolute Nucleated RBC 0.000 Nucleated RBC % 0.0 % Immature Plt Fraction 6.1 Sodium 141 Potassium 3.6 Chloride 106 Carbon Dioxide 29 Anion Gap 6 BUN 16 Creatinine 1.10 Estim Cre
== END 2024-01-15 13:30 | disposition home or self-care (01) | DRG 123 ==
LOC: ANHED 19:36 → ANH3MED 21:38
PROVIDERS: Admitting Provider Family Medicine; Emergency Provider Physician Assistant; PCP Nurse Practitioner; Visit Provider Nurse Practitioner
DX: H49.01 Third [oculomotor] nerve palsy, right eye (principal); D61.818 Other pancytopenia; H53.2 Diplopia; I25.10 Atherosclerotic heart disease of native coronary artery without angina pectoris; E11.9 Type 2 diabetes mellitus without complications; J44.9 Chronic obstructive pulmonary disease, unspecified; D64.9 Anemia, unspecified; I10 Essential (primary) hypertension; E78.2 Mixed hyperlipidemia; E66.9 Obesity, unspecified; Z68.32 Body mass index [BMI] 32.0-32.9, adult; Z87.891 Personal history of nicotine dependence
CPT/HCPCS: 36415; 70450; 70496; 70498; 70553; 80048; 80053; 82607; 82948; 83735; 84100; 84439; 84443; 84480; 85025; 85055; 85610; 85730; 92523; 93005; 93306; 96375; 97161; 97165; 99285; A9270; A9577; J1650; Q9967

== ENCOUNTER 2024-05-31 14:58 | Emergency (ER) | payer MEDICARE, OTHER, SELFPAY ==
[2024-05-31] VITALS (10 sets, daily range): BP systolic 72–132; BP diastolic 50–72; PULSE 72–92; RESP 15–25; TEMP 36.5–37.2; O2SAT 95–100
--- NOTE | ~2024-05-31 | CT_ITS ---
EXAMINATION: CT abdomen pelvis w con DATE: 05/31/2024 16:15 INDICATION: Right abdominal pain TECHNIQUE: Computed tomography (CT) of the abdomen and pelvis was performed with 100 mL Omnipaque-350 intravenous contrast. Automated exposure control and iterative reconstruction technique were employe d. The dose-length product was 998.16 mGy-cm. COMPARISON: 06/17/2020 FINDINGS: Tiny right pleural effusion. There is mild basilar atelectasis along the mildly elevated right hemidi aphragm. Mild emphysema. Heart size is normal. Atherosclerotic coronary artery calcifications. Lipoma tous hypertrophy of the septum. No pericardial effusion. Liver, gallbladder, spleen, pancreas and bilateral adrenal glands are normal. Bilateral renal cysts l arger on the left measuring 2.6 cm. There is diffuse wall thickening of the mid to distal colon with associated hyperemia to vasa recta consistent with colitis. In addition there is mild scattered diver ticulosis but without more focal adjacent inflammatory stranding to suggest diverticulitis. Small bow el and appendix are normal. Mild diffuse wall thickening the bladder which could be due to decompress ed state or secondary to the mild prostatomegaly measuring 4.2 x 3.2 cm. No free intraperitoneal gas or fluid. No pathologically enlarged abdominal or pelvic lymphadenopathy. There is mild scattered carolyne cified atherosclerosis without stenosis of the normal caliber aorta and many of the other arteries. M ild lumbar and moderate lower thoracic spondylosis. IMPRESSION: 1. Colitis most likely infectious or inflammatory in etiology. 2. Mild bladder wall thickening which could be due to partially decompressed state, chronic outlet ob struction from the mildly enlarged prostate or less likely cystitis and would correlate with urinalys is. Reviewed, dictated and finalized at location A. IMPRESSION: 1. Colitis most likely infectious or inflammatory in etiology. 2. Mild bladder wall thickening which could be due to partially decompressed st ate, chronic outlet obstruction from the mildly enlarged prostate or less likel y cystitis and would correlate with urinalysis.
--- NOTE | 2024-05-31 15:17 | ED_ITS ---
HPI - Nausea/Vomiting/Diarrhea General Chief complaint: Nausea/Vomiting/Diarrhea Stated complaint: diarrhea, 20lb weight loss Time Seen by Provider: 05/31/24 15:14 Source: patient Mode of arrival: ambulatory Limitations: no limitations History of Present Illness HPI Narrative: This is a 78-year-old male who presents to the ED with chief complaint of diarrhea for the past 2 weeks. Patient reports around a 20 lb weight loss over the past 2 months. Reports decreased appetite. States that the stools have been darker in nature. He does state that he has been taking Pepto-Bismol. States he had normal colonoscopy a couple of years ago. Patient does state that he had a fall 4 months ago and has had right-sided rib pain ever since. Reports some right-sided abdominal pain but attributes this to his rib. Reports taking antibiotics 2-3 weeks ago due to of sinus infection/cough. Denies fevers but states he had chills/sweats a couple days ago. Denies urinary symptoms. Triage note mentions patient taking blood thinner but he is not currently on any anticoagulation. Took antiplatelets in the past but has not been on any ticagrelor quite some time. Related Data Home Medications Medication Instructions Recorded Confirmed aspirin 81 mg tablet,delayed 81 mg PO DAILY 06/19/20 05/31/24 release (Adult Aspirin Regimen) atorvastatin 40 mg tablet 40 mg PO DAILY 06/19/20 05/31/24 metoprolol tartrate 25 mg tablet 12.5 mg PO BID 06/19/20 05/31/24 omeprazole 20 mg capsule,delayed 20 mg PO DAILY 06/19/20 05/31/24 release amlodipine 5 mg tablet (Norvasc) 5 mg PO DAILY 01/13/24 05/31/24 cholecalciferol (vitamin D3) 25 25 mcg PO DAILY 01/13/24 05/31/24 mcg (1,000 unit) tablet cyanocobalamin (vitamin B-12) 500 500 mcg PO DAILY 01/13/24 05/31/24 mcg tablet folic acid 1 mg tablet 1 mg PO DAILY 01/13/24 05/31/24 lisinopril 10 mg tablet 10 mg PO DAILY 01/13/24 05/31/24 sertraline 100 mg tablet (Zoloft) 100 mg PO DAILY 01/13/24 05/31/24 Allergies Allergy/AdvReac Type Severity Reaction Status Date / Time ibuprofen Allergy Unknown Swelling Verified 05/31/24 15:26 Review of Systems Review of Systems: All systems as dictated in [facility] Past Medical History Medical History (Updated 05/31/24 @ 17:10 by Landon Browning PA-C) COPD (chronic obstructive pulmonary disease) Cranial nerve III palsy, partial, right Diplopia Suspected 2019-nCoV infection Family History Family History Other Family history non-contributory Social History Social History Smoking packs per day: 4 Smoking cigarettes per day: 80.0 Years smoked: 50 Smoking pack-years: 200.00 Smoking status: Former smoker Tobacco type: cigarettes Second hand tobacco smoke exposure: No Smoking end date: 03/24/05 Alcohol intake: former Drinks per week: 4 Alcohol use details: beer Substance use: never Substance use type: does not use Do You Feel Safe in your Home?: Yes Lack of Transportation: No Lack of Food: Never True Current Housing: I Have Housing Concerned About Future Housing: No Difficulty Paying Gas/Electric Bills: No Difficulty Paying for Meds: No Currently Unemployed: No Education: Trade/Vocational Certificate Difficulty w/ Childcare or Family Care: No Gender identity (if verbalized by the patient): Male Spiritual care concerns: No Exam Narrative: GENERAL: Well-appearing, well-nourished, and in no acute distress. HEAD: Normocephalic, atraumatic. EYES: PERRLA and EOMI. ENT: Nares clear, no rhinorrhea or epistaxis. Mucous membranes moist. Oropharynx without tonsillar hypertrophy exudate or other lesions. NECK: Supple. No adenopathy or masses. CHEST: No respiratory distress. Clear to auscultation. No wheezes rales or rhonchi HEART: Regular rate and rhythm. No murmur heard. Normal peripheral pulses. ABDOMEN: Soft, nontender, nondistended, normal active bowel sounds. MSK: Normal range of motion. No edema. SKIN: Warm, dry, no rash. NEURO: Alert and oriented x4. No focal deficits. PSYCH: Normal mood and affect. : Rectal exam done with RN track laminating machine tender present; Guaiac stool is positive. External skin tag noted. No external hemorrhoid noted. Questionable internal hemorrhoid present. No gross blood on exam. No tenderness on exam Course Vital Signs Vital signs: Vital Signs Temperature 97.7 F 05/31/24 15:18 Pulse Rate 85 05/31/24 15:18 Respiratory Rate 18 05/31/24 15:18 Blood Pressure 104/64 05/31/24 15:18 Pulse Oximetry 98 05/31/24 15:18 Oxygen Delivery Room Air 05/31/24 15:18 Temperature 98.9 F 05/31/24 17:44 Pulse Rate 75 05/31/24 17:44 Respiratory Rate 17 05/31/24 17:44 Blood Pressure 132/72 05/31/24 17:44 Pulse Oximetry 99 05/31/24 17:44 Oxygen Delivery Room Air 05/31/24 15:18 MDM - Nausea/Vomiting/Diarrhea MDM Narrative Medical decision making narrative: This is a 78 yo male presents to the ED for chief complaint of diarrhea x2 weeks. Questionable dark stools but has been taking Pepto-Bismol. Also feels that he has a hemorrhoid that is causing the bleeding. Vitals are normal. Orthostatic blood pressure does dip when standing up. It would clinically tract that he is dehydrated due to GI losses. Exam is benign overall with minimal abdominal tenderness. He does have guaiac-positive rectal exam. Urinalysis unremarkable. Lab work shows mildly elevated white count of 10.9 and hemoglobin mildly anemic at 11.6, But at his baseline. CT abdomen pelvis with IV contrast: IMPRESSION: 1. Colitis most likely infectious or inflammatory in etiology. 2. Mild bladder wall thickening which could be due to partially decompressed state, chronic outlet obstruction from the mildly enlarged prostate or less likely cystitis and would correlate with urinalysis. Should decision making regarding disposition today. Advised the patient could probably be admitted for this colitis and rectal bleeding although it is reassuring that his lab work appears okay. We discussed that he may need rehydration and potentially would need a stool test as he is at risk for C diff with recent antibiotic use. Patient has decided that he would like to go home today since he feels all right after 2 L of fluids here. Will prescribe Cipro and Flagyl for standard colitis regimen but encouraged him to follow-up closely with PCP regarding this issue. Strongly advised that the patient stay well hydrated at home due to being orthostatic here. Patient will be discharged in stable condition. Supportive measures discussed and return precautions given. Patient is understanding and agreeable with plan for discharge with PCP follow-up. Lab Data 05/31/24 15:28 05/31/24 15:28 Labs: Lab Results 05/31/24 05/31/24 Range/Units 15:28 17:15 WBC 10.9 H (4.5-10.0) K/mm3 RBC 4.53 L (4.6-6.20) M/mm3 Hgb 11.6 L (14.0-18.0) g/dL Hct 37.6 L (42.0-52.0) % MCV 83.0 (80-100) fl MCH 25.6 L (26-34) pg MCHC 30.9 L (32-36) g/dl RDW 14.4 (11.5-14.5) % Plt Count 240 D (150-375) k/mm3 MPV 11.4 H (7.4-10.4) fl Immature Gran % (Auto) 0.5 (0-0.5) % Neut % (Auto) 82.0 H (45.5-73.1) % Lymph % (Auto) 9.0 L (18.3-44.2) % [place] % (Auto) 6.4 (2.6-8.5) % Eos % (Auto) 1.6 (0-4.4) % Baso % (Auto) 0.5 (0.2-1.2) % Lymph # (Auto) 0.98 (0.9-3.2) K/mm3 [place] # (Auto) 0.7 H (0.1-0.6) K/mm3 Eos # (Auto) 0.2 (0-0.3) K/mm3 Baso # (Auto) 0.1 (0.0-0.1) K/mm3 Abs Immat Gran (auto) 0.06 H (0.00-0.031) K/mm3 Absolute Neuts (auto) 8.9 H (1.3-6.7) K/mm3 Absolute Nucleated RBC 0.000 (0.0-0.012) K/mm3 Nucleated RBC % 0.0 (0.0-0.2) % PT 13.7 (11.1-14.7) Seconds INR 1.0 APTT 31.5 (22.3-36.8) Seconds Sodium 141 (137-145) mmol/L Potassium 3.4 (3.4-5.0) mmol/L Chloride 104 (98-107) mmol/L Carbon Dioxide 27 (22-30) mmol/L Anion Gap 10 (4-12) mmol/L BUN 15 (9-20) mg/dL Creatinine 1.10 (0.7-1.3) mg/dL Estim Creat Clear Calc 50 ml/min Estimated GFR > 60 (59 - ) Glucose 120 H (65-110) mg/dL Calcium 9.5 (8.4-10.2) mg/dL Total Bilirubin 0.6 (0.2-1.3) mg/dL AST 39 (17-59) U/L ALT 17 (6-50) U/L Alkaline Phosphatase 88 (38-126) U/L Total Protein 8.0 (6.3-8.2) g/dL Albumin 4.4 (3.5-5.1) g/dL Lipase 58 (23-300) U/L Urine Color Yellow (Yellow) Urine Appearance Clear (Clear) Urine pH 5.5 (5.0-9.0) Ur Specific [place] > 1.045 H (1.001-1.035) Urine Protein Negative (Negative) mg/dL Urine Glucose (UA) Negative (Negative) mg/dL Urine Ketones Negative (Negative) mg/dL Ur Blood (Man) Non-hemolyzed trace (Negative) Urine Nitrate Negative (Negative) Urine Bilirubin Negative (Negative) Urine Urobilinogen 0.2 (<2.0) mg/dL Add Ur Microanalysis Reviewed Leukocyte Esterase Rfl Negative (Negative) TEREZA/UL Urine RBC 0-2 (0-2) /hpf Urine WBC 0-5 (0-3) /hpf Ur Squamous Epith Cells None seen (Few) /hpf Urine Bacteria None seen /hpf Urine Casts 11-20 Hyaline Casts Present (None) /lpf Blood Type A Positive Antibody Screen Negative Discharge Plan Discharge Clinical Impression: Colitis Patient Disposition: Home, Self-Care Condition: Stable Instructions: Antibiotic Form Additional Instructions: Exam and imaging today show colitis. We will treat with antibiotics please fol low-up with PCP regarding possible outpatient testing as you may need to be tested for C diff. Stay very well hydrated at home. If you have any new or worsening symptoms please return to the ER for further evaluation. Prescriptions: New ciprofloxacin HCl [Cipro] 500 mg tablet 500 mg PO Q12H Qty: 14 0RF metronidazole 500 mg tablet 500 mg PO Q12H 7 Days Qty: 14 0RF No Action lisinopril 10 mg tablet 10 mg PO DAILY sertraline [Zoloft] 100 mg Tablet 100 mg PO DAILY amlodipine [Norvasc] 5 mg Tablet 5 mg PO DAILY folic acid 1 mg tablet 1 mg PO DAILY cyanocobalamin (vitamin B-12) 500 mcg tablet 500 mcg PO DAILY cholecalciferol (vitamin D3) 25 mcg (1,000 unit) Tablet 25 mcg PO DAILY omeprazole 20 mg capsule,delayed release(DR/EC) 20 mg PO DAILY metoprolol tartrate 25 mg tablet 12.5 mg PO BID atorvastatin 40 mg tablet 40 mg PO DAILY aspirin [Adult Aspirin Regimen] 81 mg tablet,delayed release (DR/EC) 81 mg PO DAILY Follow-up/Referrals: Florencio Kilgore APRN [Primary Care Provider] - Time of Disposition: 17:12
[2024-05-31 15:41] LABS: Basophils Absolute Auto 0.1 K/mm3 (0.0-0.1); Basophils Percent Auto 0.5 % (0.2-1.2); Eosinophils Absolute Auto 0.2 K/mm3 (0-0.3); Eosinophils Percent Auto 1.6 % (0-4.4); Hematocrit 37.6 % (42.0-52.0); Hemoglobin 11.6 g/dL (14.0-18.0); Immature Granulocyte Absolute 0.06 K/mm3 (0.00-0.031); Immature Granulocyte Percent A 0.5 % (0-0.5); Lymphocytes Absolute Auto 0.98 K/mm3 (0.9-3.2); Mean Corpuscular HGB Conc 30.9 g/dl (32-36); Mean Corpuscular Hemoglobin 25.6 pg (26-34); Mean Platelet Volume 11.4 fl (7.4-10.4); Monocytes Absolute Auto 0.7 K/mm3 (0.1-0.6); Monocytes Percent Auto 6.4 % (2.6-8.5); Neutrophils Absolute Auto 8.9 K/mm3 (1.3-6.7); Platelet Count Result 240 k/mm3 (150-375); Red Blood Count 4.53 M/mm3 (4.6-6.20); Red Cell Distribution Width 14.4 % (11.5-14.5); White Blood Count 10.9 K/mm3 (4.5-10.0)
[2024-05-31 15:51] LABS: Alanine Aminotransferase 17 U/L (6-50); Albumin Level 4.4 g/dL (3.5-5.1); Alkaline Phosphatase 88 U/L (38-126); Anion Gap 10 mmol/L (4-12); Aspartate Amino Transferase 39 U/L (17-59); Bilirubin,Total 0.6 mg/dL (0.2-1.3); Blood Urea Nitrogen 15 mg/dL (9-20); Calcium 9.5 mg/dL (8.4-10.2); Carbon Dioxide 27 mmol/L (22-30); Chloride 104 mmol/L (98-107); Estimated CRCL calculation 50 ml/min; Estimated Glomerular Filt Rate > 60; Glucose 120 mg/dL (65-110); Lipase 58 U/L (23-300); Potassium 3.4 mmol/L (3.4-5.0); Sodium 141 mmol/L (137-145)
--- NOTE | 2024-05-31 15:54 | PC.NURSE ---
pt attempted to provide urine sample but was unable to go
[2024-05-31] MEDS: LACTATED RINGERS 1,000 ML 999 ML IV CONT ×2 (15:55)
[2024-05-31 15:59] LABS: Prothrombin Time 13.7 Seconds (11.1-14.7)
[2024-05-31 16:00] LABS: Partial Thromboplastin Time 31.5 Seconds (22.3-36.8)
[2024-05-31 17:37] LABS: Add Urine Microscopic? NO; Appearance Urine Clear (Clear); Bacteria Urine None Seen /hpf; Bilirubin Urine Negative (Negative); Blood Urine Non-Hemolyzed Trace (Negative); Color Urine Yellow (Yellow); Glucose Urine UA Negative (Negative); Hyaline Casts Urine Present /lpf; Ketones Urine Negative (Negative); Leukocyte Esterase Ur Negative LEU/UL (Negative); Need Manual Microscopic Reviewed; Nitrate Urine Negative (Negative); Protein Urine Negative (Negative); RBC Urine 0-2 /hpf (0-2); Specific Grav Ur > 1.045 (1.001-1.035); Squamous Epithelial Cell Urine None Seen /hpf (Few); Urobilinogen Urine 0.2 mg/dL (<2.0); WBC Urine 0-5 /hpf (0-3); pH Urine 5.5 (5.0-9.0)
== END 2024-05-31 17:53 | disposition home or self-care (01) ==
PROVIDERS: Emergency Medicine; Emergency Provider Physician Assistant; PCP Nurse Practitioner
DX: K52.9 Noninfective gastroenteritis and colitis, unspecified (principal); Z79.82 Long term (current) use of aspirin; J44.9 Chronic obstructive pulmonary disease, unspecified; Z87.891 Personal history of nicotine dependence; H49.01 Third [oculomotor] nerve palsy, right eye
CPT/HCPCS: 36415; 74177; 80053; 81003; 83690; 85025; 85610; 85730; 86850; 86900; 86901; 96360; 99284; J7120; Q9967

== ENCOUNTER 2024-12-14 07:00 | Outpatient (CLI) | payer MEDICARE, OTHER, SELFPAY ==
--- NOTE | ~2024-12-14 | US_ITS ---
EXAMINATION: US aorta [facility] scr[facility] DATE: 12/14/2024 7:51 CDT INDICATION: History of tobacco use. TECHNIQUE: Grayscale, color Doppler, and pulsed Doppler images of the aorta and common iliac arteries were obtained. COMPARISON: None. FINDINGS: The proximal aorta measures 2.3 cm greatest sagittal dimension. The mid aorta measures 2.1 cm greates t sagittal dimension. The distal aorta measures 2.1 cm greatest sagittal dimension. The right common internal iliac artery measures 1.6 cm. The left common iliac artery measures 1.1 cm. IMPRESSION: 1. Normal caliber aorta without evidence for aneurysm. Reviewed, dictated and finalized at location A.
--- OUTSIDE RECORDS SUMMARY | 2024-12-14 07:04 | XMS_ITS | Encounter Summary ---
Author Organization [facility] Address [address] [place] [address] Care Team Providers Care Used Building Materials Yard Worker Name Role Phone Roel Roa MD Primary Care Provider [phone] Encounter Details Date Type Department Care Team (Latest Contact Info) Description 10/27/2001 Outpatient Historical [facility] CARDIOPULMONARY Brandon Davies MD [address] [address] DIZZINESS AND GIDDINESS (Primary Dx) Social History Tobacco Use Types Packs/Day Years Used Date Smoking Tobacco: Never Assessed Sex and Gender Information Value Date Recorded Sex Assigned at Not on file Legal Sex Male 5:25 AM [facility] Gender Identity Not on file Sexual Orientation Not on file documented as of this encounter Plan of Treatment Not on file documented as of this encounter Visit Diagnoses Diagnosis Dizziness and giddiness- Primary documented in this encounter Additional Health Concerns Infection Onset Date Last Indicated Resolved Time C Diff 07/03/2024 08/18/2024 10/17/2024 1:17 AM CDT R/O C. diff 07/04/2024 07/03/2024 07/04/2024 2:55 PM [facility] documented as of this encounter Care Teams Used Building Materials Yard Worker Relationship Specialty Start Date End Date Roel Roa MD [address] [place] [address] PCP - General 10/27/01 documented as of this encounter
--- OUTSIDE RECORDS SUMMARY | 2024-12-14 07:04 | XMS_ITS | Encounter Summary ---
Author Organization [facility] Address [address] [place] [address] Care Team Providers Care Hydraulic Modeling Engineer Name Role Phone Roel Roa MD Primary Care Provider [phone] Encounter Details Date Type Department Care Team (Late st Contact Info) Description 12/18/2001 Outpatient Historical Division of Neurology [address] [place] [address] Brandon Davies MD [address] [facility] [address] [facility] [address] [place] [phone] Social History Tobacco Use Types Packs/Day Years Used Date Smoking Tobacco: Never Assessed Sex and Gender Information Value Date Recorded Sex Assigned at Not on file 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 diff 07/04/2024 07/03/2024 07/04/2024 2:55 PM DRILL OPERATOR AUTOMATIC documented as of this encounter Care Teams Hydraulic Modeling Engineer Relationship Specialty Start Date End Date Roel Roa MD [address] [place] [place] [address] PCP - General 10/27/01 documented as of this encounter
--- OUTSIDE RECORDS SUMMARY | 2024-12-14 07:04 | XMS_ITS | Encounter Summary ---
Author Name [facility] Address [address] [place] [address] Care Team Providers Care Poison Information Specialist Name Role Phone JEAN OMER Primary Care Provider Unavail le Insurance Providers: All historical and current Section Date Range: From patient's date of to the date document was created. This section includes the names of all active insurance providers for the patient. Insurance Provider Type of Coverage Plan Name Start of Policy Coverage End of Policy Coverage Group Number Member ID Insurance Provider's Telephone Number Policy Brown's Name Patient's Relationship to Policy Brown MEDICARE (WNR) MEDICARE (M) PART A Mar 08, 2004 PART A [id number] MESSI MONTEMAYOR JR PATIENT MEDICARE (WNR) MEDICARE (M) PART A Mar 08, 2004 PART A [id number] MESSI MONTEMAYOR JR PATIENT Selected Encounter This section includes the information on record at [place] for the Encounter. Date/Time Encounter Type Encounter Description Reason Pro vider Source Sep 17, 2024 04:00 PM Outpatient Encounter ADMIN PAT ACTIVTIES (JOJONONCT) IHE Encounter Template Text not used by [place] Plan of Treatment: Future Appointments (+ 6 months) and Future Tests (+/- 45 days) The Plan of Treatment section includes future care activities for the patient from all [facility] treatmentfacilities. This section includes future appointments and future orders which are active, pending or scheduled. Future Appointments This section includes appointments that were scheduled to occur 6 months from the date of the Encounter, up to a maximum of 20 appointments. The data comes from all [place] treatment facilities. Appointment Date/Time Appointment Type Appointme nt Facility Name December 10, 2024 10:30 AM AMBULATORY - MEDICINE [facility] Jan 07, 2025 11:00 AM AMBULATORY - SURGERY [facility] Jan 09, 2025 11:30 AM AMBULATORY - SURGERY [facility] Social History: Smoking Status (Most current) and Tobacco Use (All prior to encounter date) This section includes the most current, and the historical, smoking and tobacco- related health factors from the [place] facility where the Encounter took place. Current Smoking Status This section includes the most current smoking, or tobacco-related health factor, from the [place] facility where the Encounter took place. Date/Time Current Smoking Status Comment Amanda ity May 05, 2021 04:07 PM VA-TOBACCO FORMER USER [facility] Tobacco Use History This section includes a history of the smoking, or tobacco-related health factors, that were collected on or before the date of the Encounter. The data comes from the [place] facility where the Encounter took place. Date/Time Smoking Status/Tobacco Use Comment F acalejandra May 05, 2021 04:07 PM VA-TOBACCO QUIT 15 YRS OR MORE [facility] January 03, 2004 01:11 PM CURRENT TOBACCO USER [facility] January 03, 2004 01:11 PM SMOKER 1-[address] [facility] January 03, 2004 01:11 PM SMOKER 10-20 . LO [facility] January 03, 2004 01:11 PM TOBACCO PRECONTEMPLATION STAGE [facility] Sep 26, 2003 01:11 PM CURRENT TOBACCO USER [facility] Sep 26, 2003 01:11 PM SMOKER 1-[address] [facility] Sep 26, 2003 01:11 PM TOBACCO PRECONTEMPLATION STAGE [facility] Jul 09, 2003 01:47 PM CURRENT TOBACCO USER [facility] Jul 09, 2003 01:[address] [facility] Advance Directives: All historical and current Section Date Range: From patient's date of to the date document was created. This section includes ALL of a patient's completed or amended [place] Advance and Rescinded Directives. The entries below indicate that a directive exists for the patient, but an actual copy is not included with this document. The data comes from all [place] facilities. Date Advance Directives Provider Source Sep 13, 2002 ADVANCE DIRECTIVE CLOVIS ALVAREZ IS [facility] Encounter Notes: All associated encounter notes This section contains the clinical notes associated to the Encounter. Date/Time Encounter Note(s) Provider Source Sep 17, 2024 04:00 PM PHARMACY NOTE: LOCAL TITLE: CALL [facility] PH[facility]Y ST STANDARD TITLE: PHARMACY NOTE DATE OF NOTE: SEP 17, 2024@16:00 ENTRY DATE: SEP 17, 2024@16:01:05 AUTHOR: ANDI CORTES EXP COSIGNER: URGENCY: STATUS: COMPLETED MESSI MONTEMAYOR JR has contacted the Call Center and is requesting that the following prescription be renewed. The reports that they are currently low on their supply of medication. The [facility] is requesting a new supply to be mailed to his address of record MEDICATION REQUESTED: ALPROSTADIL 40MCG/CARTRIDGE INJ SYSTEM FUTURE APPOINTMENTS:12/10/2024 10:30 KEN-DENTAL DDS2 12/12/2024 10:30 KAM-OPTOMETRY 5 01/07/2025 11:00 KEN-UROLOGY [place] 07/12/2025 11:30 KAM-PACT E4 PCP OTHER INFORMATION: Currently active order expires today. /saida/ ANDI CORTES PHARM.D. Signed: 09/17/2024 16:04 Receipt Acknowledged By: 09/21/2024 07:27 /saida/ ANDI KOCH [facility]
--- OUTSIDE RECORDS SUMMARY | 2024-12-14 07:04 | XMS_ITS | Encounter Summary ---
Author Organization [facility] Address [address] [place] [address] Care Team Providers Care Incinerator Plant General Supervisor Name Role Phone Roel Roa MD Primary Care Provider [phone] Encounter Details Date Type Department Care Team (Late st Contact Info) Description 10/16/2001 Outpatient Historical Division of Neurology [address] [place] [address] Brandon Davies MD [address] [place] [phone] Social History Tobacco Use Types Packs/Day Years Used Date Smoking Tobacco: Never Assessed Sex and Gender Information Value Date Recorded Sex Assigned at Not on file Legal Sex Male 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 diff 07/04/2024 07/03/2024 07/04/2024 2:55 PM WEB DESIGN SPECIALIST documented as of this encounter Care Teams Incinerator Plant General Supervisor Relationship Specialty Start Date End Date Roel Roa MD [address] [place] [address] PCP - General 10/27/01 documented as of this encounter
--- OUTSIDE RECORDS SUMMARY | 2024-12-14 07:04 | XMS_ITS | Clinical Summary ---
Author Organization [facility] Address [address] [place] [address] Phone Care Team Providers Care Civil Drafting Technician Name Role Phone Roel Roa MD Primary Care Provider [phone] Allergies Active Allergy Reactions Criticality Noted Date Comments Ibuprofen Swelling Low 06/20/2024 Pravastatin Diarrhea Low 10/05/2024 Tramadol Hives,Rash High 10/05/2024 Medications aspirin (ECOTRIN EC) 81 mg Tablet, Delayed Release (E.C.) Take 81 mg by mouth daily. Active atorvastatin (LIPITOR) 40 mg tablet Take 40 mg by mouth daily. Active metoprolol tartrate (LOPRESSOR) 25 mg tablet Take 25 mg by mouth 2 times daily. Active omeprazole (PriLOSEC) 20 mg Capsule, Delayed Release(E.C.) Take 20 mg by mouth daily. Active CALCIUM CARBONATE-VITAM IN D3 ORAL Take by mouth. Acti ve cyanocobalamin (VITAMIN B-12) 500 mcg tablet Take 500 mcg by mouth daily. Active folic acid (FOLVITE) 1 mg tablet Take 1 mg by mouth daily. Active lisinopriL (PRINIVIL) 10 mg tablet Take 10 mg by mouth daily. Active sertraline (ZOLOFT) 100 mg tablet Take 100 mg by mouth daily. Active dicyclomine (BENTYL) 20 mg tabletIndicatio ns:C. difficile diarrhea,Chroni c diarrhea Take 1 Tablet (20 mg) by mouth 4 times daily before meals and at bedtime. 120 Tablet 2 5 Active Alprostadil 40 mcg Kit by Intracavity route. 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 classified elsewhere 10/2023 Other disturbances of skin sensation 05/10/2024 Posttraumatic stress disorder 05/10/2024 Prediabetes 05/10/2024 Sensorineural hearing loss (SNHL) 05/10/2024 Vertigo 05/10/2024 Right oculomotor nerve palsy 04/11/2024 Bilateral lower extremity edema 12/09/2020 Claudication 04/12/2019 KELLEY (dyspnea on exertion) 04/12/2019 Hyperlipidemia LDL goal <70 04/27/2017 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 [place] [address] [place] [address] Fadumo Rothman MD Recurrent Clostridium difficile diarrhea (Primary Dx); Gastroesophageal reflux disease without esophagitis; History of colon polyps 10/24/2024 Orders Only [facility] [place] [address] [place] [address] Kavitha Smith PA Recurrent Clostridium difficile diarrhea (Primary Dx); Chronic diarrhea 10/24/[address] [facility] [place] [address] [place] [address] Kavitha Smith PA Diarrhea 10/13/2024 External Device Data ST[facility] ABSTRACTION Provider, Abstract 10/12/2024 External Device Data [facility] ABSTRACTION Provider, Abstract 10/10/2024 External Device Data [facility] ABSTRACTION Provider, Abstract 10/10/2024 External Device Data [facility] ABSTRACTION Provider, Abstract 10/09/2024 External Device Data ST[facility] ABSTRACTION Provider, Abstract 10/08/[address] [facility] Gastroenterology [facility] [address] [place] [address] Kavitha Smith PA Question 10/05/2024 12:30 PM ICT SALES ASSISTANT Office Visit [facility] [place] [address] [place] [address] Kavitha Smith PA Recurrent Clostridium difficile diarrhea (Primary Dx) 09/26/2024 External Device Data [facility] ABSTRACTION Provider, Abstract from Last 3 Months Social History Tobacco Use Types Packs/Day Years Used Date Smoking Tobacco: Former Cigarettes 4 20.6 S tarted: 1985 Passive Smoke Exposure: Never Smokeless Tobacco: Never Tobacco Cessation:Counseling Given: Not Answered Alcohol Use Standard Drinks/Week Comments Yes 4 (1 standard drink = 0.6 oz pur e alcohol) Sex and Gender Information Value Date Recorded Sex Assigned at Not on file Legal Sex Male 5:25 AM ICT SALES ASSISTANT Gender Identity Not on file Sexual Orientation Not on file Last Filed Vital Signs Vital Sign Reading Time Taken Comments Blood Pressure 115/68 12/03/2024 1:34 PM CDT Pulse 54 12/03/2024 1:34 PM CDT Temperature - - Respiratory Rate 18 10/05/2024 12:26 PM ICT SALES ASSISTANT Oxygen Saturation - - Inhaled Oxygen Concentration - - Weight 90.3 kg (199 lb) 12/03/2024 1:34 PM CDT Height 175.3 cm (5' 9 ) 12/03/2024 1:34 PM CDT Body Mass Index 29.39 12/03/2024 1:34 PM CDT Plan of Treatment Health Maintenance Due Date Last Done Comments DTAP/TDAP/TD VACCINES (2 - T d or Tdap) 08/08/2021 08/08/2011, 07/09/2003 RSV VACCINE (60+ or ) (1 - 1-dose 75+ series) 2021 COVID-19 Vaccine (2023-2 5 season) 2024 06/27/2024, 06/22/2023, 05/14/2022, Additional history exists PNEUMOCOCCAL VACCINE 50+ YEARS Completed 1 , 04/27/2016, 09/10/2008 ZOSTER VACCINE Completed 11/09/2021, 05/08, 03/12/2009 INFLUENZA VACCINE Completed 06/27/2024, , 05/14/2022, Additional history exists Insurance MEDICARE PART A AND B [employer] Care Teams Civil Drafting Technician Relationship Specialty Start Date End Date Roel Roa MD [address] [place] [address] PCP - General 3/22/02
--- OUTSIDE RECORDS SUMMARY | 2024-12-14 07:04 | XMS_ITS | Clinical Summary ---
Author Organization [facility] [address] Address [address] [place] [address] Care Team Providers Care Education Administrative Assistant Name Role Phone Jam Boyd Primary Care Provider [phone] Allergies Active Allergy Reactions Criticality Noted Date Comments Ibuprofen Anaphylaxis High 02/16/2018 Only in large doses like 800 mg. Pravastatin Diarrhea Low 02/01/2012 Tramadol Itching,Rash,Swelling Medium 09/29/2009 Medications omeprazole (PriLOSEC) 20 mg capsule Take 1 capsule (20 mg total) by mouth daily Active aspirin 81 mg enteric coated tablet Take 1 tablet (81 mg total) by mouth daily 90 tablet 3 3 Active sertraline (ZOLOFT) 100 mg tablet Take 1 tablet (100 mg total) by mouth daily Active nitroglycerin (NITROSTAT) 0.[address] 1 tablet (0.4 mg total) under the tongue every 5 (five) minutes as needed for chest pain 25 tablet 1 4 Active cholecalciferol 25 mcg (1,000 unit) tablet Take 1 tablet (1,000 Units total) by mouth 3 Active cyanocobalamin (Vitamin B-12) 500 mcg tablet Take 1 tablet (500 mcg total) by mouth 3 Active folic acid (FOLVITE) 1 mg tablet Take 1 tablet (1 mg total) by mouth 3 Active atorvastatin (LIPITOR) 40 mg tablet Take 1 tablet (40 mg total) by mouth daily 90 tablet 3 5 Active furosemide (LASIX) 20 mg tabletIndications :Bilateral lower extremity edema Take 1 tablet (20 mg total) by mouth daily as needed (swelling) 90 tablet 3 5 11/25/19 26 Active lisinopriL (PRINIVIL,ZESTRIL ) 10 mg tablet Take 1 tablet (10 mg total) by mouth daily 90 tablet 3 5 Active metoprolol tartrate (LOPRESSOR) 25 mg immediate release tablet Take 0.5 tablets (12.5 mg total) by mouth 2 (two) times a day 90 tablet 3 5 Active atorvastatin (LIPITOR) 40 mg tablet Take 1 tablet (40 mg total) by mouth daily 90 tablet 3 4 11/30/19 25 Discontinu ed(Reorder ) furosemide (LASIX) 20 mg tabletIndications :Bilateral lower extremity edema Take 1 tablet (20 mg total) by mouth daily as needed (swelling) 90 tablet 3 4 11/30/19 25 Discontinu ed(Reorder ) lisinopriL (PRINIVIL,ZESTRIL ) 10 mg tablet Take 1 tablet (10 mg total) by mouth daily 90 tablet 3 4 11/30/19 25 Discontinu ed(Reorder ) metoprolol tartrate (LOPRESSOR) 25 mg immediate release tablet Take 0.5 tablets (12.5 mg total) by mouth 2 (two) times a day 90 tablet 3 4 11/30/19 25 Discontinu ed(Reorder ) amLODIPine (NORVASC) 5 mg tabletIndications :Essential hypertension TAKE 1 TABLET DAILY 90 tablet 1 5 11/30/19 Discontinu ed(Therapy completed) Active Problems Problem Noted Date Diagnosed Date Age-related nuclear cataract, bilateral 05/10/20 Anemia 05/10/2024 Complete loss of teeth, unsp ecified cause, unspecified class 05/10/2024 Exposure to potentially hazardous substance 10/2023 Male erectile dysfunction, unspecified Erectile dysfunction 05/10/2024 Myelopathy in diseases classified elsewhere 10/2023 Other disturbances of skin sensation 05/10/2024 Paresis of single lower extremity 05/10/2024 Posttraumatic stress disorder 05/10/2024 Posttraumatic stress disorder 05/10/2024 Prediabetes 05/10/2024 Sensorineural hearing loss (SNHL) 05/10/2024 Transient visual loss 05/10/2024 Vertigo 05/10/2024 Vitamin D3 deficiency 05/10/2024 Vitamin D deficiency, unspecified 05/10/2024 Right oculomotor nerve palsy 04/11/2024 Bilateral lower extremity edema 12/09/2020 Claudication 04/12/2019 KELLEY (dyspnea on exertion) 04/12/2019 Hyperlipidemia LDL goal <70 04/27/2017 GERD (gastroesophageal reflux disease) 7 History of tobacco abuse 03/10/2017 Pulmonary emphysema 03/10/2017 Obesity (BMI 30-39.9) 03/10/2017 Dyslipidemia 03/10/2017 Essential hypertension 03/10/2017 Presence of stent in coronary artery 03/10/2017 Coronary artery disease of n [place] artery of [place] heart with stable angina pectoris 03/10/2017 Encounters Date Type Department Care Team Description 11/29/2024 10:00 AM CDT Office Visit [facility] [address] [place] [address] Mike Virk MD Coronary artery disease of [place] artery of [place] heart with stable angina pectoris (Primary Dx); Essential hypertension; Hyperlipidemia LDL goal <70; History of tobacco abuse; Bilateral lower extremity edema from Last 3 Months Surgical History Surgery Date Site/Laterality Comments CARDIAC STENT PLACEMENT CARDIAC CATHETERIZATION Medical History Medical History Date Comments Hypertension Heart murmur Hyperlipidemia COPD (chronic obstructive pulmonary disease) (HC C) Family History Medical History Relation Name Comments Unexplained Father Old Age Macular degeneration Mother Unexplained Mother Fall Relation Name Status Comments Father (Age 89) Mother (Age 97) Social History Tobacco Use Types Packs/Day Years Used Date Smoking Tobacco: Former Cigarettes Q uit: 10/07/2003 Smokeless Tobacco: Never Tobacco Cessation:Counseling Given: Not Answered Alcohol Use Standard Drinks/Week Comments Yes 4 (1 standard drink = 0.6 oz pur e alcohol) daily Sex and Gender Information Value Date Recorded Sex Assigned at Not on file Legal Sex Male 10:09 AM CDT Gender Identity Not on file Sexual Orientation Not on file Obstetrics History Last Filed Vital Signs Vital Sign Reading Time Taken Comments Blood Pressure 102/56 11/29/2024 9:58 AM CDT Pulse 61 11/29/2024 9:58 AM CDT Temperature 36.7 C (98 F) 05/31/2024 2:16 PM CDT Respiratory Rate 20 05/31/2024 2:16 PM CDT Oxygen Saturation 97% 11/29/2024 9:58 AM CDT Inhaled Oxygen Concentration - - Weight 90.3 kg (199 lb) 11/29/2024 9:58 AM CDT Height 176.5 cm (5' 9.5 ) 11/29/2024 9:58 AM CDT Body Mass Index 28.97 11/29/2024 9:58 AM CDT Plan of Treatment Health Maintenance Due Date Last Done Comments Depression Screening 1945 Fall Risk Assessment 1945 Hepatitis C Screening 1945 Hepatitis B Screening 1963 Abdominal Aortic Aneurysm (A AA) Screen 12/20/2011 Well Visit 65+ 12/20/2011 DTaP/Tdap/Td Vaccine (2 - Td or Tdap) 08/08/2021 08/08/2011, 07/09/2003 Pneumococcal vaccine 65+ Completed 017, 04/27/2016, 09/10/2008 Zoster Vaccine Completed 11/09/2021, 05/08, 03/12/2009 Influenza Vaccine Completed 06/27/2024, , 05/14/2022, Additional history exists Insurance MEDICARE [place] MEDICARE FOR LIFE MEDICARE FOR LIFE Care Teams Education Administrative Assistant Relationship Specialty Start Date End Date Jam Boyd DO [address] [facility] [address] [place] [address] PCP - General Internal Medicine 04/11/24
--- OUTSIDE RECORDS SUMMARY | 2024-12-14 07:04 | XMS_ITS ---
Author Name [facility] Organization [facility] Address [address] [place] [address] Care Team Providers Care Survey Technologist Name Role Phone JEAN OMER Primary Care [...] PART A Mar 08, 2004 PART A [id number] MESSI BAKER JR PATIENT MEDICARE (WNR) MEDICARE (M) PART A Mar 08, 2004 PART A [id number] MESSI BAKER JR PATIENT Selected Encounter This section includes the information on record at [place] for the Encounter. Date/Time Encounter Type Encounter Description Reason Provider Source Jul 12, 2024 11:30 AM OFFICE O/P EST MOD 30 MIN PRIMARY CARE/MEDICINE ICD-10-CM Z00.00 Encntr for general adult medical exam w/o abnormal findings VIRGIL BYERS IHGanesh Encounter Template Text not used by [place] Assessments - Encounter Diagnoses This section includes the primary and secondary diagnoses documented for the Encounter. Date/Time Primary/Secondary Diagnosis Diagnosis Name Provider Source Jul 12, 2024 12:04 PM PRIMARY Encntr for general adult medical exam w/o abnormal findings [facility] Jul 12, 2024 12:04 PM SECONDARY Anemia, unspecified [facility] Jul 12, 2024 12:04 PM SECONDARY Athscl heart disease [facility] [place] art w unsp ang pctrs [facility] Jul 12, 2024 12:04 PM SECONDARY Enterocolitis d/t Clostridium difficile, not spcf as recur [facility] Jul 12, 2024 12:04 PM SECONDARY Essential (primary) hypertension [facility] Jul 12, 2024 12:04 PM SECONDARY Gastro-esophageal reflux disease without esophagitis [facility] Jul 12, 2024 12:04 PM SECONDARY Hyperlipidemia, unspecified [facility] Jul 12, 2024 12:04 PM SECONDARY Other male erectile dysfunction [facility] Jul 12, 2024 12:04 PM SECONDARY Other peripheral vertigo, bilateral [facility] Jul 12, 2024 12:04 PM SECONDARY Post-traumatic stress disorder, chronic [facility] Jul 12, 2024 12:04 PM SECONDARY Prediabetes [facility] Jul 12, 2024 12:04 PM SECONDARY Vitamin D deficiency, unspecified [facility] Plan of Treatment: Future Appointments (+ 6 months) and Future Tests (+/- 45 days) The Plan of Treatment section includes future care activities for the patient from all [place] treatmentfacilities. This section includes future appointments and future orders which are active, pending or scheduled. Future Appointments This section includes appointments that were scheduled to occur 6 months from the date of the Encounter, up to a maximum of 20 appointments. The data comes from all [facility] facilities. Appointment Date/Time Appointment Type Appointme nt Facility Name December 10, 2024 10:30 AM AMBULATORY - MEDICINE [facility] Jan 07, 2025 11:00 AM AMBULATORY - SURGERY [facility] Jan 09, 2025 11:30 AM AMBULATORY - SURGERY [facility] Lab Results: +/- 30 days of the encounter This section includes the Chemistry and Hematology Lab Results on record with [facility] for the patient. Radiology Reports and Pathology Reports are provided separately, in subsequent sections. Lab Results This section contains the Chemistry/Hematology Results that were resulted 30 days before or 30 daysafter the date of the Encounter. Date/Time Source Result Type Result - Unit Interpretation Reference Range Specimen Type Comment Jul 18, 2024 12:36 PM [facility] HGA1C BLOOD Specimen Type: BLOOD No comment entered. Ordering Provider: VIRGIL BYERS Report Released Date/Time: Jul 12, 2024 11:50 AM Reporting Lab: [address] [address] Performing Lab: [address] [address] HGA1C 6.2 H 4.0-6.0 Jul 18, 2024 12:36 PM [facility] LIPID PANEL (STL) PLASMA Specimen Type: PLASM A Comment: No hemolysis noted. Ordering Provider: VIRGIL BYERS Report Released Date/Time: Jul 12, 2024 11:50 AM Reporting Lab: [address] [address] Performing Lab: [address] [address] CHOLESTEROL 137 mg/dL 0-200 TRIGLYCERIDE 121 mg/dL 0-150 CALCULATED LDL 75 mg/dL HDL(New) 38 mg/dL L >40 Jul 18, 2024 12:36 PM [facility] THYROXINE SERUM Specimen Type: SERUM No comment entered. Ordering Provider: VIRGIL BYERS Report Released Date/Time: Jul 12, 2024 11:50 AM Reporting Lab: [address] [address] Performing Lab: [facility] [address] [address] THYROXINE 6.84 ug/dL 4.5-12 Jul 18, 2024 12:36 PM [facility] VITAMIN D, 25-HYDROXY SERUM Specimen Type: SE RUM No comment entered. Ordering Provider: VIRGIL BYERS Report Released Date/Time: Jul 12, 2024 11:50 AM Reporting Lab: [address] [address] Performing Lab: [address] [address] VITAMIN D, 25-HYDROXY 27.5 ng/mL L 30-96 Jul 18, 2024 12:36 PM [facility] TSH W/ REFLEX FT4 (STL) PLASMA Specimen Type: PLASMA No comment entered. Ordering Provider: VIRGIL BYERS Report Released Date/Time: Jul 12, 2024 11:50 AM Reporting Lab: [place] [id number] [facility] [address] Performing Lab: [address] [address] TSH 2.913 u[IU]/mL 0.47-5 Jul 18, 2024 12:36 PM [facility] COMPREHENSIVE METABOLIC PANEL PLASMA Specimen Type: PLASMA Comment: No hemolysis noted. Ordering Provider: VIRGIL BYERS Report Released Date/Time: Jul 12, 2024 11:50 AM Reporting Lab: [address] [address] Performing Lab: [address] [address] CREATININE 1.20 mg/dL 0.7-1.3 UREA NITROGEN 19.6 mg/dL 9.0-25.0 GLUCOSE 100 mg/dL H 72-99 SODIUM 142 meq/L 136-145 POTASSIUM 4.3 meq/L 3.5-5 CHLORIDE 107 meq/L 98-107 CARBON DIOXIDE 26 meq/L 22-31 CALCIUM 9.6 mg/dL 8.4-10.4 PROTEIN 8.0 g/dL 6-8.6 ALBUMIN 3.9 g/dL 3.4-5 TOTAL BILIRUBIN 0.4 mg/dL 0.2-1.2 ALKALINE PHOSPHATASE 99 U/L 40-150 AST/SGOT 30 U/L 5-34 ALT/SGPT 25 U/L 8-40 EGFR (CKD-EPI 2020) 62.3 >60 Jul 18, 2024 12:36 PM [facility] CBC BLOOD Specimen Type: BLOOD No comment entered. Ordering Provider: VIRGIL BYERS Report Released Date/Time: Jul 12, 2024 11:50 AM Reporting Lab: [facility] [address] [address] Performing Lab: [facility] [address] [facility] [address] WBC 5.3 10*3/uL 3.6-11.2 RBC 4.40 10*6/uL 4.10-5.70 HGB 11.0 g/dL L 13.1-16.8 HCT 36.2 L 38.2-48.4 MCV 82.3 fL 80.0-100.0 MCH 25.0 pg L 27.0-34.0 MCHC 30.4 g/dL L 33.0-36.0 PLT 196 10*3/uL 150-400 MPV 11.0 fL 7.5-11.2 RDW 16.4 H 11.8-15.1 LYMPHOCYTES, AUTO % 19 MONOCYTES, AUTO % 10 NEUTROPHILS, AUTO % 69 EOSINOPHILS, AUTO % 1 BASOPHILS, AUTO % 1 LYMPHOCYTES, ABSOLUTE 1.03 10*3/uL 0.77- 4.50 MONOCYTES, ABSOLUTE 0.51 10*3/uL 0.19-0. 80 NEUTROPHILS, ABSOLUTE 3.67 10*3/uL 2.10- 8.00 EOSINOPHILS, ABSOLUTE 0.07 10*3/uL 0.00- 0.60 BASOPHILS, ABSOLUTE 0.04 10*3/uL 0.00-0. 20 Vital Signs: All taken on the encounter date This section contains inpatient and outpatient Vital Signs collected on the date of the Encounter. Date/Time Temperature Pulse Blood Pressure Respiratory Rate SP02 Pain Height Weight Body Mass Index Source Jul 12, 2024 11:24 AM 98.3 80 128/74 16 96 0 203.3 29 [facility] Social History: Smoking Status (Most current) and Tobacco Use (All prior to encounter date) This section includes the most current, and the historical, smoking and tobacco- related health factors from the [place] facility where the Encounter took place. Current Smoking Status This section includes the most current smoking, or tobacco-related health factor, from the [place] facility where the Encounter took place. Date/Time Current Smoking Status Comment Amanda ity Jul 12, 2024 11:30 AM VA-TOBACCO USE FOR BETH CIGARETTES [facility] Tobacco Use History This section includes a history of the smoking, or tobacco-related health factors, that were collected on or before the date of the Encounter. The data comes from the [place] facility where the Encounter took place. Date/Time Smoking Status/Tobacco Use Comment F acalejandra Jul 12, 2024 11:30 AM VA-TOBACCO USE FOR BETH CIGARETTES [facility] Jul 12, 2023 11:00 AM VA-TOBACCO FORMER USER [facility] Jul 12, 2023 11:00 AM VA-TOBACCO QUIT 15 YRS OR MORE [facility] May 14, 2022 11:30 AM VA-TOBACCO FORMER USER [facility] May 14, 2022 11:30 AM VA-TOBACCO QUIT 15 YRS OR MORE [facility] May 13, 2020 02:30 PM VA-TOBACCO FORMER USER [facility] May 13, 2020 02:30 PM VA-TOBACCO QUIT 15 YRS OR MORE [facility] Dec 05, 2017 01:35 PM CURRENT NON-TOBACC O USER-HX OF USE [facility] Dec 05, 2017 01:35 PM VA-TOBACCO NEVER USED [facility] Jun 07, 2017 11:34 AM QUIT TOBACCO >7 YEARS AGO [facility] Mar 07, 2017 10:16 AM LIFETIME NON-USER OF TOBACCO [facility] Apr 27, 2016 01:32 PM QUIT TOBACCO >7 YEARS AGO [facility] Jun 09, 2015 01:41 PM QUIT TOBACCO >7 YEARS AGO [facility] Aug 05, 2014 12:53 PM QUIT TOBACCO >7 YEARS AGO [facility] Apr 23, 2013 12:58 PM QUIT TOBACCO >7 YEARS AGO [facility] Jun 22, 2011 08:51 AM QUIT TOBACCO >7 YEARS AGO [facility] May 19, 2010 01:29 PM QUIT TOBACCO >12 M O & <7 YRS AGO [facility] Jul 08, 2009 12:45 PM QUIT TOBACCO >12 M O & <7 YRS AGO [facility] Sep 10, 2008 03:07 PM QUIT TOBACCO >12 M O & <7 YRS AGO [facility] December 30, 2006 11:19 AM QUIT TOBACCO >12 M O & <7 YRS AGO [facility] Oct 04, 2005 02:37 PM CURRENT NON-TOBACC O USER-HX OF USE [facility] Oct 04, 2005 02:37 PM TOBACCO TERMINATION STAGE [facility] Apr 28, 2005 02:02 PM CURRENT NON-TOBACC O USER-HX OF USE [facility] Apr 28, 2005 02:02 PM TOBACCO MAINTENANCE STAGE [facility] December 16, 2004 02:56 PM CURRENT NON-TOBACC O USER-HX OF USE [facility] December 16, 2004 02:56 PM TOBACCO ACTION STAGE [facility] Advance Directives: All historical and current Section Date Range: From patient's date of to the date document was created. This section includes ALL of a patient's completed or amended [place] Advance and Rescinded Directives. The entries below indicate that a directive exists for the patient, but an actual copy is not included with this document. The data comes from all [place] facilities. Date Advance Directives Provider Source Sep 13, 2002 ADVANCE DIRECTIVE CLOVIS ALVAREZ [facility] Encounter Notes: All associated encounter notes This section contains the clinical notes associated to the Encounter. Date/Time Encounter Note(s) Provider Source Aug 17, 2024 08:47 AM PHYSICIAN LETTERS: LOCAL TITLE: TEST RESULT GENERAL LETTER [facility] STANDARD TITLE: PHYSICIAN LETTERS DATE OF NOTE: AUG 17, 2024@08:47 ENTRY DATE: AUG 17, 2024@08:48:01 AUTHOR: VIRGIL BYERS EXP COSIGNER: URGENCY: STATUS: COMPLETED [facility] [address] [place] [address] AUG 17, 2024 MESSI BAKER [address] [place], [place] [address] Dear Messi Baker, I would like to update you on your recent test results. LIPID PROFILE - High cholesterol and triglycerides (lipids) are risk factors for heart disease. Your cholesterol should fall between 140 and 200, and your triglycerides levels should be less than or equal to 150. HDL is the good cholesterol and should ideally be greater than 40. LDL is the bad cholesterol and optimal levels should be less than 100 (near optimal is between 100 and 129). TRIGLYCERIDE 121 mg/dL 07/18/2024 12:36 CHOLESTEROL 137 mg/dL 07/18/2024 12:36 HDL(New) 38 L mg/dL 07/18/2024 12:36 CALCULATED LDL 75 mg/dL 07/18/2024 12:36 No DIRECT LDL EO data found These readings are within normal limits. HEMOGLOBIN A1C - Gives us information about your diabetes (sugar or glucose) control over the past 3 months. Your target is to keep your A1C below 7 %. HGA1C 6.2 H % 07/18/2024 12:36 These results are abnormal. Prediabetes range The results of your labs show prediabetes. Normal A1C is 4-5.6%, prediabetes is 5.6-6.4%, and diabetes is 6.5% or greater. The higher your A1C, the likelihood increases of developing diabetes and complications related to diabetes. Please decrease the carbohydrate and sugar content of your diet and get regular physical activity such as walking at least 30 minutes 5 days a week or equivalent. Foods and drinks high in carbohydrates and sugar include things such as soda, juice, desserts, candy, bread, and pastas. Limiting these items in your diet along with regular exercise will naturally decrease your A1C. We will continue to monitor this at upcoming office visits. CBC - A complete blood count (CBC) gives important information about the kinds and numbers of cells in the blood, especially red blood cells, white blood cells, and platelets. HGB 11.0 L g/dL 07/18/2024 12:36 HEMATOCRIT 36.2 % L (07/18/24 12:36) PLT 196 10*3/uL 07/18/2024 12:36 WHITE BLOOD COUNT 5.3 10*3/uL (07/18/24 12:36) These results are abnormal. Anemia You are slightly anemic. If you notice any sign of bleeding such as red blood in your urine or stools of maroon or black stools or vomit that looks like coffee grounds, or you have significant weakness or dizziness, please call this clinic or go to ER for further evaluation. If you have none of those signs, we will recheck this at your next visit. I am going to start you on a daily iron supplement along with a stool softener as you have a known history of iron deficiency anemia and likely with your recent illness, need a short course of iron. I will send these to your mail order pharmacy. Drinking orange juice with the iron tab will enhance the absorption of iron. Iron rich foods include organ meat, spinach and legumes. CHEM 7 - This is important information about the current status of your kidneys, liver, and electrolyte and acid/base balance as well as of your blood sugar and blood proteins. SODIUM 142 mEq/L 07/18/2024 12:36 POTASSIUM 4.3 mEq/L 07/18/2024 12:36 CHLORIDE 107 mEq/L 07/18/2024 12:36 UREA NITROGEN 19.6 mg/dL 07/18/2024 12:36 CREATININE 1.20 mg/dL 07/18/2024 12:36 CALCIUM 9.6 mg/dL 07/18/2024 12:36 CARBON DIOXIDE 26 mEq/L 07/18/2024 12:36 GLUCOSE 100 H mg/dL 07/18/2024 12:36 EGFR (CKD-EPI 2020) 62.3 07/18/2024 12:36 These readings are within normal limits. LIVER FUNCTION PANEL - These are tests for liver function: PROTEIN 8.0 g/dL 07/18/2024 12:36 ALBUMIN 3.9 g/dL 07/18/2024 12:36 ALBUMIN (PB-sendout) 4.2 g/dL 07/15/2023 08:34 TOTAL BILIRUBIN 0.4 mg/dL 07/18/2024 12:36 ALKALINE PHOSPHATASE 99 U/L 07/18/2024 12:36 AST/SGOT 30 U/L 07/18/2024 12:36 ALT/SGPT 25 U/L 07/18/2024 12:36 These readings are within normal limits. TSH - Thyroid-stimulating hormone (also known as TSH or thyrotropin) is a peptide hormone synthesized and secreted by thyrotrope cells in the anterior pituitary gland, which regulates the endocrine function of the thyroid gland. TSH TSH 2.913 uIU/mL 07/18/2024 12:36 These readings are within normal limits. VITAMIN D - Helps promote the proper utilization of calcium and phosphorus, thereby producing proper bone maintenance. VITAMIN D, 25-HYDROXY 27.5 L ng/mL 07/18/2024 12:36 These results are abnormal. Low vitamin D The results from your labs show a low vitamin D. Foods naturally rich in vitamin D include dairy, flesh of fatty fish such as salmon, fish liver oils, cheese, certain mushrooms, fortified cereals and drinks such as almond milk or orange juice fortified with vitamin D. I have sent a prescription for vitamin D 50,000 iu once weekly to take for 12 weeks. Please increase foods rich in vitamin D, take the prescription for vitamin D for 12 weeks then once that is complete, please begin daily over the counter vitamin D 2,000 iu once daily. It was a pleasure seeing you in the office. If you have a question, please do not hesitate to reach out via [facility] [employer] [facility] or telephone. We look forward to seeing you at your next office visit. FUTURE APPOINTMENTS: 12/10/2024 10:30 KEN-DENTAL DDS2 12/12/2024 10:30 [facility]-OPTOMETRY 5 01/07/2025 11:00 KEN-UROLOGY [place] 07/12/2025 11:30 [facility]-PACT E4 PCP Sincerely, VIRGIL BYERS NURSE PRACTITIONER MESSI BAKER JR, MELISSA S [facility] Jul 12, 2024 11:32 AM PRIMARY CARE NOTE: LOCAL TITLE: PRIMARY CARE PROVIDER ESTABLISHED VISIT [facility] STANDARD TITLE: PRIMARY CARE NOTE DATE OF NOTE: JUL 12, 2024@11:32 ENTRY DATE: JUL 12, 2024@11:32:14 AUTHOR: VIRGIL BYERS COSIGNER: URGENCY: STATUS: COMPLETED ESTABLISHED PATIENT [id number]: REASON FOR VISIT/CHIEF COMPLAINT: routine HPI: is a 78 year old WHITE MALE who presents today for routine visit. Went to [facility] [place] a month ago ago for food poisoning and was given an antibiotic but then ended up having c-diff and now on antibiotic therapy for the last few weeks. He had lost 30 lbs but is now feeling much better and is drinking alot of gatorade and water and no longer having loose stools. PMHx: CAD/stent to LAD 02/2017; PTSD; colon polyp; OA knee; HLD; GERD; Vit D def; PreDM; anemia; folate def. nonva PCP Dr. Brando Kilgore or Dr. Hopper at [facility] nonva Cardiology Dr Virk [facility] + fall screen - when he had vertigo 2 yr ago, none since loses balance but denies falls DM2 - diet controlled nonva provider home glucose runs - not checking denies numbnesss in feet, open sores, hx ulcers last eye exam - last year HTN/CAD - denies cp, sob, TORRES home BP runs 126-131/72-80 exercise - Denies states at 78? diet - partially watch it , cut out potatoes, avoids organ meat, avoids drive throughs, and lost 45 lbs. HLD - taking statin - denies myalgia GERD - reports well controlled on PPI PTSD - reports well controlled on current regimen + depression screen denies SI/HI not seeing MH not interested anemia/folate deficiency - not taking folate or iron denies s/sx of bleeding, BRBPR and dark tarry stools vitamin d - not taking vit d supplement leg parasthesia - reports was muscle and arthritis issue vertigo not as potent ; stopped vestibular therapy, still has when he looks up obesity - see above - lost 30 lbs. SOURCE(S) OF HISTORY: Patient WHAT IS YOUR GOAL FOR TODAY? 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) 4) Tobacco Use Disorder, Remission (ICD-9-CM 305.1) 5) History of polyp of colon (SNOMED CT [id number]) 6) Osteoarthrosis involving the knee (ICD-9-CM 715.98) 7) Coronary artery disease comment: s/p LAD Xience stent x 2 (not overlapping) 8) Hyperlipidemia 9) Gastroesophageal reflux disease without esophagitis 10) Benign essential hypertension 11) Prediabetes 12) Anemia 13) Deficiency of vitamin D3 14) Monoparesis of lower limb 15) Vertigo 16) Exposure to potentially hazardous substance 17) Posttraumatic stress disorder 18) Erectile dysfunction ALLERGIES: Life Sustaining Treatment Orders ALLERGY REVIEW: Allergy list reviewed and remains current. RXAE - Active/Exp Opt Meds 1) ALPROSTADIL 40MCG/CARTRIDGE INJ SYSTEM ACTIVE INJECT 40MCG (1 CARTRIDGE) INTRACAVITY EVERY WEEK NEEDED FOR ERECTILE DYSFUNCTION PRIOR TO SEXUAL ACTIVITY (MAX 4/MONTH) 2) CHOLECALCIF 25MCG (D3-1,000UNIT) TAB ACTIVE TAKE ONE TABLET BY MOUTH ONCE A DAY 3) CYANOCOBALAMIN 500MCG TAB ACTIVE TAKE ONE TABLET BY MOUTH ONCE A DAY FOR VITAMIN B12 SUPPLEMENTATION 4) FOLIC ACID 1MG TAB ACTIVE TAKE ONE TABLET BY MOUTH ONCE A DAY FOR FOLIC ACID SUPPLEMENTATION 5) OMEPRAZOLE 20MG EC CAP ACTIVE TAKE ONE CAPSULE BY MOUTH EVERY MORNING BEFORE A MEAL TO LOWER STOMACH ACID. TAKE 30 MINUTES PRIOR TO FOOD. 6) SERTRALINE HCL 100MG TAB ACTIVE/S TAKE ONE TABLET BY MOUTH EVERY MORNING FOR MOOD Legend: ACTIVE/S means that the RX is 'active' and suspended for mailout. N O N - V A M E D I C A T I O N S O N F I L E 1) AMLODIPINE BESYLATE 5MG TAB ACTIVE 5MG BY MOUTH ONCE A DAY 2) ASPIRIN 81MG CHEW TAB ACTIVE 81MG BY MOUTH ONCE A DAY 3) ATORVASTATIN CALCIUM 80MG TAB ACTIVE 40MG BY MOUTH EVERY EVENING 4) FUROSEMIDE 20MG TAB ACTIVE 20MG BY MOUTH EVERY MORNING 5) LISINOPRIL 20MG TAB ACTIVE 10MG BY MOUTH ONCE A DAY 6) METOPROLOL TARTRATE 25MG TAB ACTIVE 12.5MG BY MOUTH TWICE A DAY 7) NITROGLYCERIN 0.4MG SL TAB ACTIVE 0.4MG UNDER THE TONGUE ONE-TIME NEEDED MEDICATION RECONCILIATION: I have reviewed the patient's medication list with the patient and/or his/her care-child caregiver private home. Handwritten corrections, additions and/or deletions were made to the list. Corrected Outpatient Medication List was provided to the patient/caregiver. DATA REVIEW: SODIUM 140 mEq/L 07/15/2023 08:34 POTASSIUM 3.8 mEq/L 07/15/2023 08:34 CHLORIDE 104 mEq/L 07/15/2023 08:34 UREA NITROGEN 14.8 mg/dL 07/15/2023 08:34 CREATININE 1.19 mg/dL 07/15/2023 08:34 CALCIUM 9.5 mg/dL 07/15/2023 08:34 PROTEIN 8.2 g/dL 07/15/2023 08:34 ALBUMIN 4.4 g/dL 07/15/2023 08:34 ALKALINE PHOSPHATASE 116 U/L 07/15/2023 08:34 ALT/SGPT 14 U/L 07/15/2023 08:34 AST/SGOT 17 U/L 07/15/2023 08:34 TOTAL BILIRUBIN 0.7 mg/dL 07/15/2023 08:34 CARBON DIOXIDE 25 mEq/L 07/15/2023 08:34 GLUCOSE 98 mg/dL 07/15/2023 08:34 EGFR (CKD-EPI 2020) 63.3 07/15/2023 08:34 WBC 5.4 10*3/uL 07/15/2023 08:34 RBC 4.75 10*6/uL 07/15/2023 08:34 HGB 12.4 L g/dL 07/15/2023 08:34 HCT 39.0 % 07/15/2023 08:34 MCV 82.1 fL 07/15/2023 08:34 MCH 26.1 L pg 07/15/2023 08:34 MCHC 31.8 L g/dL 07/15/2023 08:34 RDW 13.6 % 07/15/2023 08:34 PLT 175 10*3/uL 07/15/2023 08:34 MPV 12.0 H fL 07/15/2023 08:34 NEUTROPHILS, AUTO % 66 % 07/15/2023 08:34 LYMPHOCYTES, AUTO % 22 % 07/15/2023 08:34 MONOCYTES, AUTO % 10 % 07/15/2023 08:34 EOSINOPHILS, AUTO % 2 % 07/15/2023 08:34 BASOPHILS, AUTO % 1 % 07/15/2023 08:34 NEUTROPHILS, ABSOLUTE 3.58 10*3/uL 07/15/2023 08:34 LYMPHOCYTES, ABSOLUTE 1.19 10*3/uL 07/15/2023 08:34 MONOCYTES, ABSOLUTE 0.54 10*3/uL 07/15/2023 08:34 EOSINOPHILS, ABSOLUTE 0.08 10*3/uL 07/15/2023 08:34 BASOPHILS, ABSOLUTE 0.03 10*3/uL 07/15/2023 08:34 TRIGLYCERIDE 111 mg/dL 07/15/2023 08:34 CHOLESTEROL 123 mg/dL 07/15/2023 08:34 HDL(New) 33 L mg/dL 07/15/2023 08:34 CALCULATED LDL 68 mg/dL 07/15/2023 08:34 No TSH (1YR) EO data found VITAMIN D, 25-HYDROXY 28.5 L ng/mL 07/15/2023 08:34 SLT - Lab Tests Selected Collection DT Specimen Test Name Result Units Ref Range 07/15/2023 08:34 BLOOD HGA1C 6.4 H % 4.0 - 6.0 05/14/2022 13:05 BLOOD HGA1C 6.5 H % 4.0 - 6.0 11/09/2021 08:51 BLOOD HGA1C 6.2 H % 4.0 - 6.0 No PSA EO data found HbA1c No data available for: HGA1C Result: Acceptable Follow-up Action: Data results reviewed with patient and/or caregiver. Review of Systems: General: Denies fever, chills, weight loss, weight gain ENT: Denies sore throat, nasal discharge, tinnitus, loss of hearing Eye: Denies changes in vision, double vision Cardiovascular- Denies chest pain, palpitations, dizziness Respiratory: Denies SOB, cough, hemoptysis Abd/GI: Denies nausea, vomiting, +diarrhea, -=constipation, pain MSK/Ext: Denies joint pain, trauma, stiffness, edema /VOUCHER CLERK: Denies frequency, urgency, burning, odor, discharge Hemo/lymph: Denies easy bruising, fatigue, swollen nodes Endo: Denies excess thirst, hunger, urination Psych: Denies depression, anxiety, nightmares, insomnia Neuro: Denies headaches, tremors, seizures, head injury, neuropathy Skin: Denies laceration/abrasion, rash, itching, insect bites SMOKING STATUS:non VSD - Detailed Vitals Date Vital Measurement Qualifiers 07/12/2024 11:24 Temp F (C) 98.3 (36.8) Pulse 80 Respir 16 BP 128/74 Wt lbs (kg)[BMI] 203.3 (92.22)[29*] Pain 0 POx (L/Min)(%) 96 Physical Exam: ENT: Pharynx clear, TM's clear EYE: PERRLA Cardiovascular: RRR, no murmurs, no carotid bruits, no edema Respiratory: Lungs CTAB Abd/GI: Abdomen soft, non-tender, non-distended, no masses or guarding Extremities: adequate ROM, no edema /VOUCHER CLERK: No CVA or S/P tenderness Hemo/lymph: no adenopathy, excessive bruising Endo: Thyroid without palpable nodules, no excess hair growth Psych: mood and affect appropriate Neuro: Alert and oriented, CN2-12 grossly intact Skin: Clear and intact Assessment and Plan: # Preventative Healthcare/well visit - routine healthcare, preventative screenings, and immunizations reviewed. # DM2 - controlled - RX: diet controlled - on acei - on statin - encouraged daily foot care - declines foot exam today - encouraged annual eye exam - check A1C, micral # Cdiff - lost 30 lbs in 3 weeks - currently asymptomatic but still taking abx and on 3 weeks of abx - f/b [place] provider - labs ordered # HTN/CAD - controlled - s/p stent x 2 2016 - RX: amlodipine, metoprolol, lisinopril, asa, statin - ticagrelor stopped - encouraged low sodium diet and regular exercise regimen - check BP at home weekly, 1-2 hours after taking RX - report if consistently > 130/>80 - f/b nonva cards # HLD - controlled - RX: atorvastatin - denies myalgia - encouraged low saturated fat diet/DASH diet - encouraged regular exercise regimen - check lipid panel # GERD - controlled - RX: omeprazole - avoid triggers # PTSD - controlled - denies SI - RX: sertraline - given crisis line number - no longer f/b # anemia/folate def - controlled - RX: none - folate elevated prior visit - trend cbc, iron studies, folate # vitamin D deficiency - controlled - cont. vit d supplement - check vitamin D level # Leg parasthesia - resolved - ADRIEL normal 11/2021 - statin held with no improvement - reports muscle issue - dc back to pcp by neuro # Vertigo - controlled - reports well controlled - has had vertigo x 3 years - saw ENT, did vestibular rehab - no ENT f/u indicated - modify activity prn # obesity - controlled - recently lost 30 lbs since having cdiff - encouraged clinical management nurse rn and/or weight loss MOVE program - Encouraged implementing exercise regimen # ED/low libido - controlled - nonva managing # falls - controlled - reports > 2 yr ago due to vertigo HEALTH MAINTENANCE: CRC screen - aged out; cscope 01/2022 with 3 polyps - no further recommended age 45 - 75 for average risk PROST. SPECIFIC AG.(PB-STL) 0.419 ng/mL 11/09/2021 08:51 PROST. SPECIFIC AG.(PB-STL) 0.463 ng/mL 12/29/2020 10:36 PROST. SPECIFIC AG.(PB-STL) 0.579 ng/ml 05/25/2019 12:42 age 45 - 75 for average risk declined RSV COVID-19 (PFIZER), MRNA, LNP-S, * 05/14/2022 [facility]* COVID-19 (PFIZER), MRNA, LNP-S, * 3 06/22/2021 [facility]* COVID-19 (PFIZER), MRNA, LNP-S, * 2 09/22/2020 [facility]* COVID-19 (PFIZER), MRNA, LNP-S, * 1 09/01/2020 [facility]* COVID-19 (PFIZER), MRNA, LNP-S, * 1 06/22/2023 [facility]* INFLUENZA, HIGH-DOSE, QUADRIVALE* C 06/22/2023 [facility]* PNEUMOCOCCAL CONJUGATE PCV 13 04/27/2016 [facility]* PNEUMOCOCCAL POLYSACCHARIDE PPV23 06/07/2017 [facility]* PNEUMOCOCCAL, UNSPECIFIED FORMUL* 09/10/2008 [facility]* TDAP Pernell ZOSTER LIVE 03/12/2009 [facility]* ZOSTER RECOMBINANT 2 11/09/2021 [facility]* ZOSTER RECOMBINANT 1 05/25/2021 [facility]* Return to clinic 12 months and sooner PRN SUMMARY STATEMENT: Plan of care has been discussed with including expected therapeutic benefits and potential side effects of prescribed medication and treatments. [place] verbalizes understanding and is in agreement with the plan of care. Patient was instructed to keep all scheduled appointments and contact attraction worker for any additional problems. PAVE Foot Check - L,N,P,PH,PO,PT,U: Patient declined limb care exam. The patient was advised the [place] mandates all patients with diabetes mellitus, end stage renal disease, peripheral vascular disease, or sensory neuropathy should have a complete foot check completed annually. This includes a visual exam of the skin, pedal pulses and a sensory exam. Patients with any abnormality noted during the foot check should be referred to a specialist. Follow-Up Pos PTSD/Depression - M,P,PH,PS,R,S,T: I have reviewed the results of the Mental Health screens and have evaluated the patient. Based on the evaluation, the following disposition plan will be implemented: Patient declines further intervention or evaluation at this time. Contact information and instructions for accessing emergency services provided. Comment: feels stable /saida/ VIRGIL BYERS NURSE PRACTITIONER Signed: 07/12/2024 12:04 VIRGIL BYERS [facility] Jul 12, 2024 11:25 AM NURSING NOTE: LOCAL TITLE: V15 PACT FACE TO FACE NOTE ST STANDARD TITLE: NURSING NOTE DATE OF NOTE: JUL 12, 2024@11:25 ENTRY DATE: JUL 12, 2024@11:25:33 AUTHOR: MAIDA WHEATLEY: URGENCY: STATUS: COMPLETED Provider Visit: Patient Identifiers : Full Name Date of Reason for visit: Established Follow-Up Mode of Arrival: Ambulatory Allergy Review: TRAMADOL, IBUPROFEN, PRAVACHOL TABLET Allergy list reviewed and remains current. Recent Vital Signs: Temperature: 98.3 F [36.8 C] (07/12/2024 11:24) Pulse: 80 (07/12/2024 11:24) Respiration: 16 (07/12/2024 11:24) B/P: 128/74 (07/12/2024 11:24) Pain: 0 (07/12/2024 11:24) Wt: 203.3 lb [92.22 kg] (07/12/2024 11:24) Ht: 70 in [177.8 cm] (10/14/2023 10:49) BMI: 29.2 POX: 96% (07/12/2024 11:24) Would you like to discuss any personal problem, family problem, alcohol use, drug use, or a mental or emotional illness? No Contact provided Primary Care phone number and encouraged to call if any questions or concerns. Review that after hours nurse line [phone] and emergency room are available 28/02 for patient use. Contact verbalized good understanding. Suicide Screen - V: C-SSRS Screening [place]-Suicide Severity Rating Scale (C-SSRS Screener) 1. Over the past month, have you wished you were or wished you could go to sleep and not wake up? No 2. Over the past month, have you had any actual thoughts of killing yourself? No 3. Over the past month, have you been thinking about how you might do this? Response not required due to responses to other questions. 4. Over the past month, have you had these thoughts and had some intention of acting on them? Response not required due to responses to other questions. 5. Over the past month, have you started to work out or worked out the details of how to kill yourself? Response not required due to responses to other questions. 6. If yes, at any time in the past month did you intend to carry out this plan? Response not required due to responses to other questions. 7. In your lifetime, have you ever done anything, started to do anything, or prepared to do anything to end your life (for example, collected pills, obtained a gun, gave away valuables, went to the roof but didn't jump)? No 8. If YES, was this within the past 3 months? Response not required due to responses to other questions. Sexual Orientation - CP,L,N,P,PH,PS,S,U: The patient thinks of their sexual orientation as: Straight or Heterosexual Alcohol Use Screen (AUDIT-C) - V: Alcohol Screen: SCREEN FOR ALCOHOL (AUDIT-C) An alcohol screening test (AUDIT-C) was negative (score=0). 1. How often did you have a drink containing alcohol in the past year? Consider a drink to be a 12 ounce can or bottle of regular beer, 8 ounces of malt liquor, a 5 ounce glass of table wine, or a 1.5 ounce shot of liquor (like scotch, gin, or vodka). Never 2. How many drinks containing alcohol did you have on a typical day when you were drinking in the past year? Response not required due to responses to other questions. 3. How often did you have six or more drinks on one occasion in the past year? Response not required due to responses to other questions. Depression Screening - V: Perform PHQ-2 A PHQ-2 screen was performed. The score was 3 which is a positive screen for depression. Over the past two weeks, how often have you been bothered by the following problems? 1. Little interest or pleasure in doing things Several days 2. Feeling down, depressed, or hopeless More than half the days Licensed Independent Provider notified of positive screen and need for follow-up. Name of provider notified: [facility] Homelessness/Food Insecurity Screen - DI,L,N,P,PH,PS,S,U: In the past 2 months, have you been living in stable housing that you own, rent, or stay in as part of a household? Yes - Living in stable housing. Are you worried or concerned that in the next 2 months you may NOT have stable housing that you own, rent, or stay in as part of a household? No - Not worried about housing near future The [place] reports the following: Within the past 12 months, you worried whether your food would run out before you got money to buy more. Never true Within the past 12 months, the food you bought just didn't last and you didn't have money to get more. Never true Frail/Elderly Screen: ADL Screen - [place] Index of [place] in Activities of Daily Living Bathing: (3 Points) Receives no assistance (gets in and out of tub by self, if tub is usual means of bathing) Dressing: (3 Points) Gets clothes and gets completely dressed without assistance. Toileting: (3 Points) Goes to toilet room , cleans self, and arranges clothes without assistance (may use object for support such as cane, walker, or wheelchair, and may manage own night bedpan or commode, emptying same next morning) Transferring: (3 Points) Moves in and out of bed and in and out of chair without assistance (may be using object for support, such as cane or walker) Continence: (3 Points) Controls urination and bowel movement completely by self Feeding: (3 Points) Feeds self without assistance Total Score: 18 Points 18 = High (patient independent) 6 = Low (patient very dependent) IADL Screen - [place] Instrumental Activities of Daily Living Scale Ability to use telephone: (1 point) Operates Telephone on own initiative; looks up and dials numbers. Shopping: (1 point) Takes care of all shopping needs independently. Food preparation: (1 point) Plans, prepares, and serves adequate meals independently. Housekeeping: (1 point) Maintains house alone with occasional assistance (heavy work). Laundry: (1 point) Does personal laundry completely. Mode of transportation: (1 point) Travels on public transportation when assisted or accompanied by another. Responsibility for own medications: (1 point) Is responsible for taking medications in correct dosages at correct times. Ability to handle finances: (1 point) Manages financial matters independently (budgets, writes checks, pays rent and bills, goes to bank); collects and keeps track of income. Total score: 8 points 8 = High function, independent 0 = Low function, dependent Falls Screen: No falls within the past 12 months. Incontinence Screen No incontinence. Tobacco Use Screening - U,L,N,S,PS,M,DE,PH,P: The patient is a former cigarette smoker. Quit smoking GREATER THAN OR EQUAL to 15 years. The patient has never used other types of tobacco. [facility] - [facility] MAP: PERSONAL HEALTH PLAN INVENTORY & MAP 's Response: riding his motorcycle, overnight trips SHARED GOALS resolve c-diff issue /es/ MAIDA WHEATLEY LPN LICENSED PRACTICAL NURSE Signed: 07/12/2024 11:29 MAIDA WHEATLEY [facility]
--- OUTSIDE RECORDS SUMMARY | 2024-12-14 07:04 | XMS_ITS | Continuity of Care Document ---
Author Name [facility] Organization [facility] Care Team Providers Care Workforce Services Representative Name Role Phone [facility] Unavailable Unavailable Problems Combined list of problems from Department of Defense and Veterans Affairs facilities. It does not include entries that were removed or entered in error. Problem Status Onset Date Problem Type Date of Resolution Comments Source Anemia Active Condition [facility] Benign essential hypertension Active Condition [facility] Coronary artery disease Active Condition Mar 07, 2017 Entered By: NAIN GARG Comment: s/p LAD Xience stent x 2 (not overlapping ) [facility] Deficiency of vitamin D3 Active Condition [facility] Erectile dysfunction Active Condition [facility] Exposure to potentially hazardous substance Active Condition [facility] Gastroesophageal reflux disease without esophagitis Active Condition [facility] Hearing Loss, Sensorineural, Unspecified Active Condition [facility] History of polyp of colon (SNOMED CT 163345200) Active Condition [facility] Hyperlipidemia Active Condition [facility] Monoparesis of lower limb Active Condition [facility] Osteoarthrosis involving the knee (ICD-9-CM 715.98) Active Condition [facility] Posttraumatic stress disorder Active Condition [facility] Prediabetes Active Condition [facility] PROLONG POSTTRAUM STRESS Active Condition [facility] 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 [facility] Tobacco Use Disorder, Remission (ICD-9-CM 305.1) Active Condition [facility] Vertigo Active Condition [facility] Abdominal bloating (SNOMED CT 983023301) Inactive Condition 06/07/2017 [facility] GERD Inactive Condition 06/07/2017 [facility] Hyperlipidemia * (ICD-9-CM 272.4) Inactive Condition 06/07/2017 [facility] Routine Medical Exam Inactive Condition 06/07/2017 [facility] SCREENING FOR OTHER AND UNSPECIFIED CARDIOVASCULAR CONDITIONS Inactive Condition 06/07/2017 [facility] Shortness of Breath Inactive Condition 06/07/2017 [facility] Diagnosis: ICD-10-CM K08.109 Complete loss of teeth, unspecified cause, unspecified class Active Diagnosis [facility] Diagnosis: ICD-10-CM Z00.00 Encntr for general adult medical exam w/o abnormal findings Active Diagnosis [facility] Diagnosis: ICD-10-CM F52.21 Male erectile disorder Active Diagnosis [facility] Diagnosis: ICD-10-CM Z23 Encounter for immunization Active Diagnosis [facility] Diagnosis: ICD-10-CM N52.9 Male erectile dysfunction, unspecified Active Diagnosis [facility] Diagnosis: ICD-10-CM H25.13 Age-related nuclear cataract, bilateral Active Diagnosis [facility] Diagnosis: ICD-10-CM E55.9 Vitamin D deficiency, unspecified Active Diagnosis [facility] Medications Combined list of outpatient medications from Department of Defense and [facility] Affairs facilities.Medications provided include 1) outpatient medications from the last 15 months, and 2) patient-reported medications. Medication Details Route Status Patient Instructions Prescription Expires Prescription Number Last Dispense Date Ordering Provider Order Date Order Qty Source Alprostadil (Prostin) Solution 40mcg/mL Injection INJECT 40MCG (1 CARTRIDG E) INTRACAV ITY EVERY WEEK NEEDED FOR ERECTILE DYSFUNCT ION PRIOR TO SEXUAL ACTIVITY (MAX 4/MONTH) 09/17/2024 [id number] JORGE LUIS WEST 2023 4 [facility] Alprostadil (Prostin) Solution 40mcg/mL Injection INJECT 40MCG (1 CARTRIDG E) INTRACAV ITY EVERY WEEK NEEDED FOR ERECTILE DYSFUNCT ION PRIOR TO SEXUAL ACTIVITY (MAX 4/MONTH) 09/17/2024 [id number] JORGE LUIS WEST 2023 4 [facility] ALPROSTADIL 40MCG/CARTR IDGE INJ,SYSTEM INJECT 40MCG (1 CARTRIDG E) INTRACAV ITY EVERY WEEK NEEDED FOR ERECTILE DYSFUNCT ION PRIOR TO SEXUAL ACTIVITY (MAX 4/MONTH) INTRAC AVITAR Y ACTIVE 09/22/2025 [id number] 5 ALEXSANDRATELMA WALDROP M 2024 4 [facility] ALPROSTADIL 40MCG/CARTR IDGE INJ,SYSTEM INJECT 40MCG (1 CARTRIDG E) INTRACAV ITY EVERY WEEK NEEDED FOR ERECTILE DYSFUNCT ION PRIOR TO SEXUAL ACTIVITY (MAX 4/MONTH) INTRAC AVITAR Y DISCONT INUED 09/17/2024 [id number] BRETTCLAUDIA GAGAN M 2023 4 [facility] AMLODIPINE BESYLATE (AMLODIPINE BESYLATE), 5 MG, TABLET, ORAL, EXELAN PHARMACE, 1000 ea. BOTTLE Cancele d [id number] : 2023 0 [facility] AMLODIPINE BESYLATE (AMLODIPINE BESYLATE), 5 MG, TABLET, ORAL, EXELAN PHARMACE, 1000 ea. BOTTLE Active [id number] 2023 90 [facility] y AMLODIPINE BESYLATE 5MG TAB TAKE ONE TABLET BY MOUTH ONCE A DAY ORAL ACTIVE Ganesh MCLAIN 2018 [facility] ASPIRIN 81MG TAB,CHEWABL E CHEW AND SWALLOW ONE TABLET BY MOUTH ONCE A DAY ORAL ACTIVE Zachary PERALTA 2017 [facility] ATORVASTATI N CA 80MG TAB TAKE ONE-HALF TABLET BY MOUTH EVERY EVENING ORAL ACTIVE Zachary PERALTA 2017 [facility] ATORVASTATI N CALCIUM (atorvastat in calcium), 40 MG, TABLET, ORAL, PRINCESS PHARMACEU, 1000 ea. BOTTLE Cancele d [id number] : 2023 0 [facility] y ATORVASTATI N CALCIUM (atorvastat in calcium), 40 MG, TABLET, ORAL, PRINCESS PHARMACEU, 1000 ea. BOTTLE Active [id number] 2023 90 [facility] Facilit y CHOLECALCIF (VIT D3) 1,000 UNIT ORAL TAB TAKE ONE TABLET BY MOUTH ONCE A DAY 07/28/2024 [id number] JENA CASE 2023 100 [facility] CHOLECALCIF SHLOMO 25MCG (1,000UNIT) TAB TAKE ONE TABLET BY MOUTH ONCE A DAY ORAL ACTIVE 07/13/2025 [id number] 5 FOX BYERS SSA S 2024 100 [facility] CHOLECALCIF SHLOMO 25MCG (1,000UNIT) TAB TAKE ONE TABLET BY MOUTH ONCE A DAY ORAL DISCONT INUED 07/28/2024 [id number] ABDIRASHID CASE 2022 100 [facility] Compounded Prilosec Capsule Conventiona l 20 mg Oral TAKE ONE CAPSULE BY MOUTH EVERY MORNING BEFORE A MEAL TO LOWER STOMACH ACID. TAKE 30 MINUTES PRIOR TO FOOD. 07/12/2024 [id number] JENA CASE 2023 90 [facility] CYANOCOBALA MIN 500 MCG ORAL TAB TAKE ONE TABLET BY MOUTH ONCE A DAY FOR VITAMIN B12 SUPPLEME NTATION 07/28/2024 [id number] JENA CASE 2023 100 [facility] CYANOCOBALA MIN 500MCG TAB TAKE ONE TABLET BY MOUTH ONCE A DAY FOR VITAMIN B12 SUPPLEME NTATION ORAL ACTIVE 07/13/2025 [id number] 5 ZEESHAN,FOX SSA S 2024 100 [facility] CYANOCOBALA MIN 500MCG TAB TAKE ONE TABLET BY MOUTH ONCE A DAY FOR VITAMIN B12 SUPPLEME NTATION ORAL DISCONT INUED 07/28/2024 [id number] MARQUIS GRULLONABDIRASHID ISGORGE M 2022 100 [facility] DOCUSATE NA 100MG CAP TAKE ONE CAPSULE BY MOUTH TWICE A DAY HOLD FOR LOOSE STOOL/DI ARRHEA. ORAL ACTIVE 02/10/2025 [id number] 5 ZEESHAN,FOX SSA S 2024 200 [facility] DOCUSATE NA 100MG CAP TAKE ONE CAPSULE BY MOUTH TWICE A DAY HOLD FOR LOOSE STOOL/DI ARRHEA. ORAL DISCONT INUED 11/15/2024 [id number] 5 ZEESHAN,FOX SSA S 2024 200 [facility] ERGOCALCIFE ROL 1,250MCG (50,000UNIT ) CAP TAKE ONE CAPSULE BY MOUTH EVERY WEEK ORAL 11/15/2024 [id number] ZEESHAN,FOX SSA S 2024 12 [facility] FERROUS SO4 325MG TAB TAKE ONE TABLET BY MOUTH ONCE A DAY ORAL 11/15/2024 [id number] 5 ZEESHAN,FOX SSA S 2024 100 [facility] FOLIC ACID (U/D) 1 MG ORAL TAB TAKE ONE TABLET BY MOUTH ONCE A DAY FOR FOLIC ACID SUPPLEME NTATION 07/28/2024 [id number] 4 ONEILTRYahir GRULLON JENA M 2023 100 [facility] FOLIC ACID 1MG TAB TAKE ONE TABLET BY MOUTH ONCE A DAY FOR FOLIC ACID SUPPLEME NTATION ORAL ACTIVE 07/13/2025 [id number] 5 FOX BYERS SSA S 2024 100 [facility] FOLIC ACID 1MG TAB TAKE ONE TABLET BY MOUTH ONCE A DAY FOR FOLIC ACID SUPPLEME NTATION ORAL DISCONT INUED 07/28/2024 [id number] [facility] 20[facility] 100 [facility] FUROSEMIDE (furosemide ), 20 MG, TABLET, ORAL, [employer], 1000 ea. BOTTLE Active [id number] 2023 90 [facility] y FUROSEMIDE 20MG TAB TAKE ONE TABLET BY MOUTH EVERY MORNING ORAL ACTIVE [facility] 2023 [facility] LISINOPRIL (lisinopril ), 10 MG, TABLET, ORAL, EXELAN PHARMACE, 1000 ea. BOTTLE Active [id number] 2023 90 [facility] y LISINOPRIL 20MG TAB TAKE ONE-HALF TABLET BY MOUTH ONCE A DAY ORAL ACTIVE [facility] 2022 [facility] METOPROLOL TARTRATE (metoprolol tartrate), 25 MG, TABLET, ORAL, [employer] 1000 ea. BOTTLE Active [id number] 2023 90 [facility] Facilit y METOPROLOL TARTRATE 25MG TAB TAKE ONE-HALF TABLET BY MOUTH TWICE A DAY ORAL ACTIVE Zachary PERALTA 2017 [facility] NITROGLYCER IN 0.4MG TAB,SUBLING UAL DISSOLVE ONE TABLET UNDER THE TONGUE ONE-TIME NEEDED SUBLIN GUAL ACTIVE [facility] 2023 [facility] OMEPRAZOLE 20MG CAP,EC TAKE ONE CAPSULE BY MOUTH EVERY MORNING BEFORE A MEAL TO LOWER STOMACH ACID. TAKE 30 MINUTES PRIOR TO FOOD. ORAL ACTIVE 07/13/2025 [id number] 5 ZEESHANFOX SSA S 2023 90 [facility] OMEPRAZOLE 20MG CAP,EC TAKE ONE CAPSULE BY MOUTH EVERY MORNING BEFORE A MEAL TO LOWER STOMACH ACID. TAKE 30 MINUTES PRIOR TO FOOD. ORAL DISCONT INUED 07/12/2024 [id number] ABDIRASHID CASE 2022 90 [facility] sertraline (U/D) 100 MG ORAL TAB TAKE ONE TABLET BY MOUTH EVERY MORNING FOR MOOD 07/12/2024 [id number] JENA CASE [address] [place] [address] Divisio n SERTRALINE HCL 100MG TAB TAKE ONE TABLET BY MOUTH EVERY MORNING FOR MOOD ORAL ACTIVE 06/19/2025 [id number] ABDIRASHID CASE [address] [place] [address] DIVISIO N SERTRALINE HCL 100MG TAB TAKE ONE TABLET BY MOUTH EVERY MORNING FOR MOOD ORAL DISCONT INUED 07/12/2024 [id number] ABDIRASHID CASE 2023 90 [facility] Allergies, Adverse Reactions, Alerts Combined list of allergies from Department of Defense and Veterans Affairs facilities. It does not include entries that were removed or entered in error. Substance Category Reaction Severity Reaction type Status Date Reported Comments Source IBUPROFEN Propensity to adverse reactions to drug (finding) Swelling, Itching, Urticaria active 0 [facility] Ibuprofen, (IBUPROFEN PMR) Drug allergy (disorder) Swelling, Urticaria, Pruritus active 0 [facility] PRAVACHOL TABLET Propensity to adverse reactions to drug (finding) Diarrhea active 2 [facility] Pravastatin Drug allergy (disorder) Diarrhea active 2 [facility] TRAMADOL Propensity to adverse reactions to drug (finding) Swelling, Itching, Eruption active 0 [facility] Tramadol HCl Drug allergy (disorder) Pruritus, Swelling, Eruption of skin active 0 [facility] Tramadol HCl Drug allergy (disorder) Swelling, Eruption of skin, Pruritus active 0 [facility] Tramadol HCl Drug allergy (disorder) Pruritus, Eruption of skin, Swelling active 0 [facility] Immunizations Combined list of available immunizations from the Department of Defense and [facility] facilities. Immunization Series Date Given Administered By Site Reaction Lot Number CVX Code Drug Plate Hanger Status Comments Source COVID-19 (PFIZER), MRNA, LNP-S, PF, NEERAJ-SUCROSE, 30 MCG/0.3 ML (AGES 12+ YEARS) 2023 NOLBERTO DAVIS LEFT DELTO ID [id number] 309 complet ed [facility] INFLUENZA, HIGH-DOSE, TRIVALENT, PF 2023 NOLBERTO DAVIS RIGHT DELTO ID [id number] 135 complet ed [facility] INFLUENZA, HIGH-DOSE, QUADRIVALENT 2022 MULUGETA DARDEN LEFT DELTO ID [id number] A 197 complet ed Completed Series, [facility] COVID-19 (Sonora Leather), MRNA, LNP-S, PF, NEERAJ-SUCROSE, 30 MCG/0.3 ML (AGES 12+ YEARS) 1 2022 MULUGETA DARDEN RIGHT DELTO ID [id number] 309 complet ed [facility] COVID-19, MRNA, LNP-S, BIVALENT BOOSTER, PF, 30 MCG/0.3 ML DOSE 2021 300 complet ed [facility] INFLUENZA VACCINE, QUADRIVALENT, ADJUVANTED 2021 205 complet ed [facility] INFLUENZA, HIGH DOSE SEASONAL 2021 135 complet ed [facility] ZOSTER RECOMBINANT 2 2021 187 complet ed [facility] COVID-19 (Sonora Leather), MRNA, LNP-S, PF, 30 MCG/0.3 ML DOSE 3 2020 208 complet ed PFR; [id number]; 2 [facility] INFLUENZA VACCINE, QUADRIVALENT, ADJUVANTED 2020 205 complet ed [facility] INFLUENZA, HIGH-DOSE, QUADRIVALENT 2020 197 complet ed [facility] ZOSTER RECOMBINANT 1 2020 187 complet ed [facility] COVID-19 (PFIZER), MRNA, LNP-S, PF, 30 MCG/0.3 ML DOSE 2 2020 208 complet ed PFR; [id number]; 1 [facility] COVID-19 (Sonora Leather), MRNA, LNP-S, PF, 30 MCG/0.3 ML DOSE 1 2020 208 complet ed PFR; [id number]; 1 [facility] INFLUENZA, HIGH-DOSE, QUADRIVALENT 2019 197 complet ed [facility] INFLUENZA, INJECTABLE, QUADRIVALENT, PRESERVATIVE FREE 2017 150 complet ed [facility] INFLUENZA, INJECTABLE, QUADRIVALENT, PRESERVATIVE FREE 2016 150 complet ed [facility] PNEUMOCOCCAL POLYSACCHARID E [id number] 2016 33 complet ed [facility] INFLUENZA, SEASONAL, INJECTABLE, PRESERVATIVE FREE 2015 140 complet ed [facility] N PNEUMOCOCCAL CONJUGATE PCV 13 2015 133 complet ed [facility] INFLUENZA, SEASONAL, INJECTABLE, PRESERVATIVE FREE 2014 140 complet ed [facility] INFLUENZA, SEASONAL, INJECTABLE, PRESERVATIVE FREE 2013 140 complet ed [facility] INFLUENZA, UNSPECIFIED FORMULATION 2012 88 complet ed [facility] INFLUENZA, UNSPECIFIED FORMULATION 2011 88 complet ed [facility] INFLUENZA, UNSPECIFIED FORMULATION 2011 88 complet ed [facility] TDAP 2011 115 complet ed [facility] INFLUENZA, UNSPECIFIED FORMULATION 2010 88 complet ed [facility] INFLUENZA, UNSPECIFIED FORMULATION 2010 88 complet ed [facility] INFLUENZA, UNSPECIFIED FORMULATION 2008 88 complet ed [facility] INFLUENZA, UNSPECIFIED FORMULATION 2008 88 complet ed [facility] ZOSTER LIVE 2008 121 complet ed [facility] PNEUMOCOCCAL, UNSPECIFIED FORMULATION 2008 109 complet ed [facility] OUTSIDE FLU SHOT (HISTORICAL) 2004 88 complet ed [facility] TD(ADULT) UNSPECIFIED FORMULATION 2002 139 complet ed [facility] Results Combined list of recent chemistry, hematology and other laboratory results from Department of Defense and Veterans Affairs, ranging from 15 months to all on record, depending upon the facility. Order Name Results Value Reference Range Date Interpretation Specimen Comments Source [id number] HEMOGLOBIN A1C/HEMOGLO BIN.TOTAL IN BLOOD 6.2 4.0 - 6.0 07/18 H Specimen Type: BLOOD No comment entered. Ordering Provider: SHAYLA BYERS Report Released Date/Time: Jul 12, 2024 11:50 AM Reporting Lab: [facility] [address] [facility] [address] Performing Lab: [facility] [address] [facility] [address] [facility] THYROXINE THYROXINE (T4) [MASS/VOLUM E] IN SERUM OR PLASMA 6.84 ug/dL 4.5 - 12 07/18 Specimen Type: SERUM No comment entered. Ordering Provider: SHAYLA BYERS Report Released Date/Time: Jul 12, 2024 11:50 AM Reporting Lab: [address] [address] Performing Lab: [address] [address] [facility] LIPID PANEL (STL) CHOLESTEROL [MASS/VOLUM E] IN SERUM OR PLASMA 137 mg/dL 0 - 200 07/18 Specimen Type: PLASMA Comment: No hemolysis noted. Ordering Provider: SHAYLA BYERS Report Released Date/Time: Jul 12, 2024 11:50 AM Reporting Lab: [address] [address] Performing Lab: [address] [address] [facility] LIPID PANEL (STL) TRIGLYCERID E [MASS/VOLUM E] IN SERUM OR PLASMA 121 mg/dL 0 - 150 07/18 Specimen Type: PLASMA Comment: No hemolysis noted. Ordering Provider: SHAYLA BYERS Report Released Date/Time: Jul 12, 2024 11:50 AM Reporting Lab: [address] [address] Performing Lab: [address] [address] [facility] LIPID PANEL (STL) CHOLESTEROL IN LDL [MASS/VOLUM E] IN SERUM OR PLASMA BY CALCULATION 75 mg/dL 07/18 Specimen Type: PLASMA Comment: No hemolysis noted. Ordering Provider: SHAYLA BYERS Report Released Date/Time: Jul 12, 2024 11:50 AM Reporting Lab: [address] [address] Performing Lab: [address] [address] [facility] LIPID PANEL (STL) CHOLESTEROL IN HDL [MASS/VOLUM E] IN SERUM OR PLASMA 38 mg/dL 40 07/18 L Specimen Type: PLASMA Comment: No hemolysis noted. Ordering Provider: SHAYLA BYERS Report Released Date/Time: Jul 12, 2024 11:50 AM Reporting Lab: [place] [address] Performing Lab: [address] VITAMIN D, 25-HYDROX Y 25-HYDROXYV ITAMIN D3 [MASS/VOLUM E] IN SERUM OR PLASMA 27.5 ng/mL 30 - 96 07/18 L Specimen Type: SERUM No comment entered. Ordering Provider: SHAYLA BYERS Report Released Date/Time: Jul 12, 2024 11:50 AM Reporting Lab: [place] [address] Performing Lab: [address] TSH W/ REFLEX FT4 (STL) THYROTROPIN [UNITS/VOLU ME] IN SERUM OR PLASMA 2.913 u[IU]/ mL 0.47 - 5 07/18 Specimen Type: PLASMA No comment entered. Ordering Provider: SHAYLA BYERS Report Released Date/Time: Jul 12, 2024 11:50 AM Reporting Lab: [place] [address] Performing Lab: [address] COMPREHEN SIVE METABOLIC PANEL CREATININE [MASS/VOLUM E] IN SERUM OR PLASMA 1.20 mg/dL 0.7 - 1.3 07/18 Specimen Type: PLASMA Comment: No hemolysis noted. Ordering Provider: SHAYLA BYERS Report Released Date/Time: Jul 12, 2024 11:50 AM Reporting Lab: [address] [place] [address] Performing Lab: [place] [address] [facility] [address] [facility] COMPREHEN SIVE METABOLIC PANEL UREA NITROGEN [MASS/VOLUM E] IN SERUM OR PLASMA 19.6 mg/dL 9.0 - 25.0 07/18 Specimen Type: PLASMA Comment: No hemolysis noted. Ordering Provider: SHAYLA BYERS Report Released Date/Time: Jul 12, 2024 11:50 AM Reporting Lab: [address] [address] Performing Lab: [address] [address] [facility] COMPREHEN SIVE METABOLIC PANEL GLUCOSE [MASS/VOLUM E] IN SERUM OR PLASMA 100 mg/dL 72 - 99 07/18 H Specimen Type: PLASMA Comment: No hemolysis noted. Ordering Provider: SHAYLA BYERS Report Released Date/Time: Jul 12, 2024 11:50 AM Reporting Lab: [address] [address] Performing Lab: [address] [address] [facility] COMPREHEN SIVE METABOLIC PANEL SODIUM [MOLES/VOLU ME] IN SERUM OR PLASMA 142 meq/L 136 - 145 07/18 Specimen Type: PLASMA Comment: No hemolysis noted. Ordering Provider: SHAYLA BYERS Report Released Date/Time: Jul 12, 2024 11:50 AM Reporting Lab: [address] [address] Performing Lab: [address] [address] [facility] COMPREHEN SIVE METABOLIC PANEL POTASSIUM [MOLES/VOLU ME] IN SERUM OR PLASMA 4.3 meq/L 3.5 - 5 07/18 Specimen Type: PLASMA Comment: No hemolysis noted. Ordering Provider: SHAYLA BYERS Report Released Date/Time: Jul 12, 2024 11:50 AM Reporting Lab: [address] [address] Performing Lab: [facility] [address] [place] [address] [facility] COMPREHEN SIVE METABOLIC PANEL CHLORIDE [MOLES/VOLU ME] IN SERUM OR PLASMA 107 meq/L 98 - 107 07/18 Specimen Type: PLASMA Comment: No hemolysis noted. Ordering Provider: SHAYLA BYERS Report Released Date/Time: Jul 12, 2024 11:50 AM Reporting Lab: [address] [address] Performing Lab: [address] [address] [facility] COMPREHEN SIVE METABOLIC PANEL CARBON DIOXIDE, TOTAL [MOLES/VOLU ME] IN SERUM OR PLASMA 26 meq/L 22 - 31 07/18 Specimen Type: PLASMA Comment: No hemolysis noted. Ordering Provider: SHAYLA BYERS Report Released Date/Time: Jul 12, 2024 11:50 AM Reporting Lab: [address] [address] Performing Lab: [place] [address] [facility] [address] [facility] COMPREHEN SIVE METABOLIC PANEL CALCIUM [MASS/VOLUM E] IN SERUM OR PLASMA 9.6 mg/dL 8.4 - 10.4 07/18 Specimen Type: PLASMA Comment: No hemolysis noted. Ordering Provider: SHAYLA BYERS Report Released Date/Time: Jul 12, 2024 11:50 AM Reporting Lab: [address] [address] Performing Lab: [address] [address] [facility] COMPREHEN SIVE METABOLIC PANEL PROTEIN [MASS/VOLUM E] IN SERUM OR PLASMA 8.0 g/dL 6 - 8.6 12/11 /2024 Specimen Type: PLASMA Comment: No hemolysis noted. Ordering Provider: SHAYLA BYERS Report Released Date/Time: Jul 12, 2024 11:50 AM Reporting Lab: [facility] [address] [facility] [address] Performing Lab: [facility] [address] [place] [address] [facility] COMPREHEN SIVE METABOLIC PANEL ALBUMIN [MASS/VOLUM E] IN SERUM OR PLASMA 3.9 g/dL 3.4 - 5 07/18 Specimen Type: PLASMA Comment: No hemolysis noted. Ordering Provider: SHAYLA BYERS Report Released Date/Time: Jul 12, 2024 11:50 AM Reporting Lab: [address] [address] Performing Lab: [address] [address] [facility] COMPREHEN SIVE METABOLIC PANEL BILIRUBIN.T OTAL [MASS/VOLUM E] IN SERUM OR PLASMA 0.4 mg/dL 0.2 - 1.2 07/18 Specimen Type: PLASMA Comment: No hemolysis noted. Ordering Provider: SHAYLA BYERS Report Released Date/Time: Jul 12, 2024 11:50 AM Reporting Lab: [address] [address] Performing Lab: [facility] [address] [place] [address] [facility] COMPREHEN SIVE METABOLIC PANEL ALKALINE PHOSPHATASE [ENZYMATIC ACTIVITY/VO LUME] IN SERUM OR PLASMA 99 U/L 40 - 150 07/18 Specimen Type: PLASMA Comment: No hemolysis noted. Ordering Provider: SHAYLA BYERS Report Released Date/Time: Jul 12, 2024 11:50 AM Reporting Lab: [address] [address] Performing Lab: [address] [address] [facility] COMPREHEN SIVE METABOLIC PANEL ASPARTATE AMINOTRANSF ERASE [ENZYMATIC ACTIVITY/VO LUME] IN SERUM OR PLASMA 30 U/L 5 - 34 07/18 Specimen Type: PLASMA Comment: No hemolysis noted. Ordering Provider: SHAYLA BYERS Report Released Date/Time: Jul 12, 2024 11:50 AM Reporting Lab: [address] [phone] Performing Lab: [id number] [place] [address] COMPREHEN SIVE METABOLIC PANEL ALANINE AMINOTRANSF ERASE [ENZYMATIC ACTIVITY/VO LUME] IN SERUM OR PLASMA 25 U/L 8 - 40 07/18 Specimen Type: PLASMA Comment: No hemolysis noted. Ordering Provider: SHAYLA BYERS Report Released Date/Time: Jul 12, 2024 11:50 AM Reporting Lab: [address] [phone] Performing Lab: [id number] [place] [address] COMPREHEN SIVE METABOLIC PANEL GLOMERULAR FILTRATION RATE/1.73 SQ M.PREDICTED [VOLUME RATE/AREA] IN SERUM, PLASMA OR BLOOD BY CREATININE- BASED FORMULA (CKD-EPI 2020) 62.3 60 07/18 Specimen Type: PLASMA Comment: No hemolysis noted. Ordering Provider: SHAYLA BYERS Report Released Date/Time: Jul 12, 2024 11:50 AM Reporting Lab: [address] [address] Performing Lab: [address] [phone] [place] [address] CBC LEUKOCYTES [#/VOLUME] IN BLOOD BY AUTOMATED COUNT 5.3 10*3/u L 3.6 - 11.2 07/18 Specimen Type: BLOOD No comment entered. Ordering Provider: SHAYLA BYERS Report Released Date/Time: Jul 12, 2024 11:50 AM Reporting Lab: [address] [address] Performing Lab: [address] [address] [facility] CBC ERYTHROCYTE S [#/VOLUME] IN BLOOD BY AUTOMATED COUNT 4.40 10*6/u L 4.10 - 5.70 07/18 Specimen Type: BLOOD No comment entered. Ordering Provider: SHAYLA BYERS Report Released Date/Time: Jul 12, 2024 11:50 AM Reporting Lab: [address] [address] Performing Lab: [address] [phone] CBC HEMOGLOBIN [MASS/VOLUM E] IN BLOOD 11.0 g/dL 13.1 - 16.8 07/18 L Specimen Type: BLOOD No comment entered. Ordering Provider: SHAYLA BYERS Report Released Date/Time: Jul 12, 2024 11:50 AM Reporting Lab: [address] [address] Performing Lab: [address] [phone] CBC HEMATOCRIT [VOLUME FRACTION] OF BLOOD 36.2 38.2 - 48.4 07/18 L Specimen Type: BLOOD No comment entered. Ordering Provider: SHAYLA BYERS Report Released Date/Time: Jul 12, 2024 11:50 AM Reporting Lab: [address] [address] Performing Lab: [address] [phone] CBC MCV [ENTITIC VOLUME] BY AUTOMATED COUNT 82.3 fL 80.0 - 100.0 07/18 Specimen Type: BLOOD No comment entered. Ordering Provider: SHAYLA BYERS Report Released Date/Time: Jul 12, 2024 11:50 AM Reporting Lab: [address] [address] Performing Lab: [address] [address] [facility] CBC MCH [ENTITIC MASS] BY AUTOMATED COUNT 25.0 pg 27.0 - 34.0 07/18 L Specimen Type: BLOOD No comment entered. Ordering Provider: SHAYLA BYERS Report Released Date/Time: Jul 12, 2024 11:50 AM Reporting Lab: [address] [address] Performing Lab: [phone] [place] [address] CBC MCHC [MASS/VOLUM E] BY AUTOMATED COUNT 30.4 g/dL 33.0 - 36.0 07/18 L Specimen Type: BLOOD No comment entered. Ordering Provider: SHAYLA BYERS Report Released Date/Time: Jul 12, 2024 11:50 AM Reporting Lab: [address] [address] Performing Lab: [address] [address] [facility] CBC PLATELETS [#/VOLUME] IN BLOOD BY AUTOMATED COUNT 196 10*3/u L 150 - 400 07/18 Specimen Type: BLOOD No comment entered. Ordering Provider: SHAYLA BYERS Report Released Date/Time: Jul 12, 2024 11:50 AM Reporting Lab: [address] [address] Performing Lab: [address] [address] [facility] CBC PLATELET MEAN VOLUME [ENTITIC VOLUME] IN BLOOD BY AUTOMATED COUNT 11.0 fL 7.5 - 11.2 07/18 Specimen Type: BLOOD No comment entered. Ordering Provider: SHAYLA BYERS Report Released Date/Time: Jul 12, 2024 11:50 AM Reporting Lab: [facility] [address] [facility] [address] Performing Lab: [facility] [address] [facility] [address] [facility] CBC ERYTHROCYTE DISTRIBUTIO N WIDTH [RATIO] BY AUTOMATED COUNT 16.4 11.8 - 15.1 07/18 H Specimen Type: BLOOD No comment entered. Ordering Provider: SHAYLA BYERS Report Released Date/Time: Jul 12, 2024 11:50 AM Reporting Lab: [facility] [address] [facility] [address] Performing Lab: [facility] [address] [place] [address] [facility] CBC LYMPHOCYTES /100 LEUKOCYTES IN BLOOD BY AUTOMATED COUNT 19 07/18 Specimen Type: BLOOD No comment entered. Ordering Provider: SHAYLA BYERS Report Released Date/Time: Jul 12, 2024 11:50 AM Reporting Lab: [facility] [address] [facility] [address] Performing Lab: [facility] [address] [place] [address] [facility] CBC MONOCYTES/1 00 LEUKOCYTES IN BLOOD BY AUTOMATED COUNT 10 07/18 Specimen Type: BLOOD No comment entered. Ordering Provider: SHAYLA BEYRS Report Released Date/Time: Jul 12, 2024 11:50 AM Reporting Lab: [facility] [address] [facility] [address] Performing Lab: [facility] [address] [facility] [address] [facility] CBC NEUTROPHILS /100 LEUKOCYTES IN BLOOD BY AUTOMATED COUNT 69 07/18 Specimen Type: BLOOD No comment entered. Ordering Provider: SHAYLA BYERS Report Released Date/Time: Jul 12, 2024 11:50 AM Reporting Lab: [facility] [address] [facility] [address] Performing Lab: [facility] [address] [facility] [address] [facility] CBC EOSINOPHILS /100 LEUKOCYTES IN BLOOD BY AUTOMATED COUNT 1 07/18 Specimen Type: BLOOD No comment entered. Ordering Provider: SHAYLA BYERS Report Released Date/Time: Jul 12, 2024 11:50 AM Reporting Lab: [address] [address] Performing Lab: [address] [address] [facility] CBC BASOPHILS/1 00 LEUKOCYTES IN BLOOD BY AUTOMATED COUNT 1 07/18 Specimen Type: BLOOD No comment entered. Ordering Provider: SHAYLA BYERS Report Released Date/Time: Jul 12, 2024 11:50 AM Reporting Lab: [address] [address] Performing Lab: [address] [address] [facility] CBC LYMPHOCYTES [#/VOLUME] IN BLOOD BY AUTOMATED COUNT 1.03 10*3/u L 0.77 - 4.50 07/18 Specimen Type: BLOOD No comment entered. Ordering Provider: SHAYLA BYERS Report Released Date/Time: Jul 12, 2024 11:50 AM Reporting Lab: [address] [address] Performing Lab: [address] [address] [facility] CBC MONOCYTES [#/VOLUME] IN BLOOD BY AUTOMATED COUNT 0.51 10*3/u L 0.19 - 0.80 07/18 Specimen Type: BLOOD No comment entered. Ordering Provider: SHAYLA BYERS Report Released Date/Time: Jul 12, 2024 11:50 AM Reporting Lab: [address] [address] Performing Lab: [address] [address] [facility] CBC NEUTROPHILS [#/VOLUME] IN BLOOD BY AUTOMATED COUNT 3.67 10*3/u L 2.10 - 8.00 07/18 Specimen Type: BLOOD No comment entered. Ordering Provider: SHAYLA BYERS Report Released Date/Time: Jul 12, 2024 11:50 AM Reporting Lab: [place] [address] Performing Lab: [place] [phone] CBC EOSINOPHILS [#/VOLUME] IN BLOOD BY AUTOMATED COUNT 0.07 10*3/u L 0.00 - 0.60 07/18 Specimen Type: BLOOD No comment entered. Ordering Provider: SHAYLA BYERS Report Released Date/Time: Jul 12, 2024 11:50 AM Reporting Lab: [place] [phone] Performing Lab: [place] [phone] CBC BASOPHILS [#/VOLUME] IN BLOOD BY AUTOMATED COUNT 0.04 10*3/u L 0.00 - 0.20 07/18 Specimen Type: BLOOD No comment entered. Ordering Provider: SHAYLA BYERS Report Released Date/Time: Jul 12, 2024 11:50 AM Reporting Lab: [place] [phone] Performing Lab: [address] [phone] TESTOSTER ONE, FREE PANEL TESTOSTERON E [MASS/VOLUM E] IN SERUM OR PLASMA 620 ng/dL 250 - 1100 07/15 Specimen Type: SERUM Comment: Men with clinically significant hypogonadal symptoms and testosteron e values repeatedly in the range of the 200-300 ng/dL or less, may benefit from testosteron e treatment after adequate risk and benefits counseling. For additional information , please refer to http://educ ation.BlackDuck/faq/ TotalTestos teroneLCMSM [id number] (This link is being provided for information al/ educational purposes only.) This test was developed and its analytical performance characteris tics have been determined by [employer] [place], [place]. It has not been cleared or approved by the U.S. Food and Drug Administrat ion. This assay has been validated pursuant to the CLIA regulations and is used for clinical purposes. Test Performed by [facility] [employer] [place] [place], [address] [place] [address] Berto Cain M.D., Ph.D., Director of Laboratorie s , CLIA [id number] Ordering Provider: JENA RIVERA Report Released Date/Time: Jul 12, 2023 11:35 AM Reporting Lab: [facility] [address] [place] [phone] Performing Lab: [facility] [id number] [place] [address] [facility] TESTOSTER ONE, FREE PANEL ALBUMIN [MASS/VOLUM E] IN SERUM OR PLASMA 4.2 g/dL 3.6 - 5.1 07/15 Specimen Type: SERUM Comment: Men with clinically significant hypogonadal symptoms and testosteron e values repeatedly in the range of the 200-300 ng/dL or less, may benefit from testosteron e treatment after adequate risk and benefits counseling. For additional information , please refer to http://Philz Coffee.Motista .RingCaptcha/faq/ TotalTestos teroneLCMSM [id number] (This link is being provided for information al/ educational purposes only.) This test was developed and its analytical performance characteris tics have been determined by [employer] [place], [place]. It has not been cleared or approved by the U.S. Food and Drug Administrat ion. This assay has been validated pursuant to the CLIA regulations and is used for clinical purposes. Test Performed by [facility] [employer] [place], [address] [place], [place] Berto Cain M.D., Ph.D., Director of Laboratorie s , CLIA [id number] Ordering Provider: JENA RIVERA Report Released Date/Time: Jul 12, 2023 11:35 AM Reporting Lab: [facility] [address] [place] [phone] Performing Lab: [address] [facility] TESTOSTER ONE, FREE PANEL TESTOSTERON E FREE [MOLES/VOLU ME] IN SERUM OR PLASMA 47.4 pg/mL 6.0 - 73.0 07/15 Specimen Type: SERUM Comment: Men with clinically significant hypogonadal symptoms and testosteron e values repeatedly in the range of the 200-300 ng/dL or less, may benefit from testosteron e treatment after adequate risk and benefits counseling. For additional information , please refer to http://educ ation.Motista .com/faq/ TotalTestos teroneLCMSM [id number] (This link is being provided for information al/ educational purposes only.) This test was developed and its analytical performance characteris tics have been determined by [employer] [place], [place]. It has not been cleared or approved by the U.S. Food and Drug Administrat ion. This assay has been validated pursuant to the CLIA regulations and is used for clinical purposes. Test Performed by [facility], [employer] [facility], [address] [place] [address] Berto Cain M.D., Ph.D., Director of Laboratorie s , CLIA [id number] Ordering Provider: JENA RIVERA Report Released Date/Time: Jul 12, 2023 11:35 AM Reporting Lab: [address] [address] Performing Lab: [address] [facility] TESTOSTER ONE, FREE PANEL TESTOSTERON E.FREE+WEAK LY BOUND [MASS/VOLUM E] IN SERUM OR PLASMA 91.2 ng/dL 15.0 - 150.0 07/15 Specimen Type: SERUM Comment: Men with clinically significant hypogonadal symptoms and testosteron e values repeatedly in the range of the 200-300 ng/dL or less, may benefit from testosteron e treatment after adequate risk and benefits counseling. For additional information , please refer to http://educ [employer]SEL GROUP/faq/ TotalTestos teroneLCMSM [email or web address] (This link is being provided for information al/ educational purposes only.) This test was developed and its analytical performance characteris tics have been determined by [employer] [place], [place]. It has not been cleared or approved by the U.S. Food and Drug Administrat ion. This assay has been validated pursuant to the CLIA regulations and is used for clinical purposes. Test Performed by [facility], [employer] [place], [address] [place] [address] Berto Cain M.D., Ph.D., Director of Laboratorie s , CLIA [id number] Ordering Provider: JENA RIVERA Report Released Date/Time: Jul 12, 2023 11:35 AM Reporting Lab: [facility] [address] [facility] [address] Performing Lab: [facility] [address] [place] [address] [facility] TESTOSTER ONE, FREE PANEL SEX HORMONE BINDING GLOBULIN [MOLES/VOLU ME] IN SERUM OR PLASMA 65 nmol/L 22 - 77 07/15 Specimen Type: SERUM Comment: Men with clinically significant hypogonadal symptoms and testosteron e values repeatedly in the range of the 200-300 ng/dL or less, may benefit from testosteron e treatment after adequate risk and benefits counseling. For additional information , please refer to http://Fritter .RingCaptcha/faq/ TotalTestos teroneLCMSM [id number] (This link is being provided for information al/ educational purposes only.) This test was developed and its analytical performance characteris tics have been determined by [employer] [place], [place]. It has not been cleared or approved by the U.S. Food and Drug Administrat ion. This assay has been validated pursuant to the CLIA regulations and is used for clinical purposes. Test Performed by [facility], [employer] [facility], [address] [place], [place] Berto Cain M.D., Ph.D., Director of Laboratorie s , CLIA [id number] Ordering Provider: JENA RIVERA Report Released Date/Time: Jul 12, 2023 11:35 AM Reporting Lab: [address] [address] Performing Lab: [facility] [address] [facility] B12 COBALAMIN (VITAMIN B12) [MASS/VOLUM E] IN SERUM OR PLASMA 242 pg/mL 213 - 816 07/15 Specimen Type: SERUM No comment entered. Ordering Provider: JENA RIVERA Report Released Date/Time: Jul 12, 2023 11:35 AM Reporting Lab: [facility] [address] [place] [phone] Performing Lab: [facility] [address] [place] [address] [facility] HGA1C HEMOGLOBIN A1C/HEMOGLO BIN.TOTAL IN BLOOD 6.4 4.0 - 6.0 07/15 H Specimen Type: BLOOD No comment entered. Ordering Provider: JENA RIVERA Report Released Date/Time: Jul 12, 2023 11:35 AM Reporting Lab: [facility] [address] [facility] [address] Performing Lab: [facility] [address] [place] [phone] [facility] Vital Signs Combined list of inpatient and outpatient Vital Signs from Department of Defense and Veterans Affairs, ranging from 12 months to all on record, depending upon the facility. Vital Sign Value Date Comments Source SYSTOLIC BLOOD PRESSURE 128 07/12/2024 11:24:56 [facility] DIASTOLIC BLOOD PRESSURE 74 07/12/2024 11:24:56 [facility] PULSE OXIMETRY 96 07/12/2024 11:24:56 [facility] WEIGHT 203.3 07/12/2024 11:24:56 [facility] BMI 29 kg/m2 07/12/2024 11:24:56 [facility] PAIN 0 07/12/2024 11:24:56 [facility] TEMPERATURE 98.3 07/12/2024 11:24:56 [facility] PULSE 80 07/12/2024 11:24:56 [facility] RESPIRATION 16 07/12/2024 11:24:56 [facility] SYSTOLIC BLOOD PRESSURE 97 07/09/2024 12:27:15 [facility] DIASTOLIC BLOOD PRESSURE 64 07/09/2024 12:27:15 [facility] PULSE OXIMETRY 95 07/09/2024 12:27:15 [facility] WEIGHT 201.7 07/09/2024 12:27:15 [facility] BMI 29 kg/m2 07/09/2024 12:27:15 [facility] TEMPERATURE 97.2 07/09/2024 12:27:15 [facility] PULSE 74 07/09/2024 12:27:15 [facility] RESPIRATION 18 07/09/2024 12:27:15 [facility] SYSTOLIC BLOOD PRESSURE 138 01/13/2024 11:17:22 [facility] DIASTOLIC BLOOD PRESSURE 81 01/13/2024 11:17:22 [facility] PULSE OXIMETRY 95 01/13/2024 11:17:22 [facility] WEIGHT 223.4 01/13/2024 11:17:22 [facility] BMI 32 kg/m2 01/13/2024 11:17:22 [facility] TEMPERATURE 97.2 01/13/2024 11:17:22 [facility] PULSE 73 01/13/2024 11:17:22 [facility] RESPIRATION 18 01/13/2024 11:17:22 [facility] Encounters Combined list of: 1) Encounters from Department of [facility] Affairs facilities going backup to the last 18 months, not all [place] inpatient encounters are included; 2) Encounters from the Department of [facility] facilities going backup to 280 months. Location Location Details Encounter Type Encounter Number Reason For Visit Attending Provider ADM Date DC Date Status Disposition Source [facility] Outpatient Encounter [id number] 06/21 [facility] REMOVABLE PROSTHODON TIC PROC [id number] Diagnos is: ICD-10- CM K08.109 Complet e loss of teeth, unspeci fied cause, unspeci fied class KADOSH,NAF RAYMUNDO 06/22 [facility] [place] [place] [id number] Diagnos is: ICD-10- CM Z23 Encount er for immuniz atHERBIE Moreira 06/22 [facility] Outpatient Encounter [id number] 07/04 [facility] REMOVABLE PROSTHODON TIC PROC [id number] Diagnos is: ICD-10- CM K08.109 Complet e loss of teeth, unspeci fied cause, unspeci fied class KADOSH,NAF RAYMUNDO 07/06 [facility] Outpatient Encounter [id number] Diagnos is: ICD-10- CM Z00.00 Encntr for general adult medical exam w/o abnorma l finding s DIAN BOOTHE 07/12 [facility] HC PRO PHONE CALL 5-10 MIN [id number] Diagnos is: ICD-10- CM E55.9 Vitamin D deficie ncy, unspeci fied GEMMELL,AM Y E 07/28 [facility] HC PRO PHONE CALL 5-10 MIN [id number] Diagnos is: ICD-10- CM E55.9 Vitamin D deficie ncy, unspeci fied GEMMELL,AM Y E 07/28 [facility] Outpatient Encounter [id number] ELLEN GIBBS 08/03 [facility] Encounter [id number] 08/04 [facility] Encounter [id number] 09/06 [facility] OFFICE O/P NEW MOD 45 MIN [id number] Diagnos is: ICD-10- CM N52.9 Male erectil e dysfunc tion, unspeci GIOVANI Haynes 09/17 [facility] OFFICE O/P EST LOW 20 MIN [id number] Diagnos is: ICD-10- CM N52.9 Male erectil e dysfunc tion, unspeci fied GIOVANI WEST 10/13 [facility] N [facility] Outpatient Encounter [id number] 10/25 [facility] Encounter [id number] 10/27 [facility] ADJUNCTIVE PROCEDURE [id number] Diagnos is: ICD-10- CM K08.109 Complet e loss of teeth, unspeci fied cause, unspeci fied class KADOSH,NAF RAYMUNDO 11/16 [facility] DENTURES COMPLETE MANDIBLE [id number] Diagnos is: ICD-10- CM K08.109 Complet e loss of teeth, unspeci fied cause, unspeci fied class KADOSH,NAF RAYMUNDO 12/08 [facility] [place] 1 [id number] Diagnos is: ICD-10- CM H25.13 Age-rel ated nuclear catarac t, bilater al LOUANN VELASQUEZ 12/18 [facility] OFFICE O/P EST LOW 20 MIN [id number] Diagnos is: ICD-10- CM N52.9 Male erectil e dysfunc tion, unspeci fied GIOVANI WEST 01/12 [facility] IMMUNIZATI ON ADMIN [id number] Diagnos is: ICD-10- CM Z23 Encount er for immuniz Nicolasa Zuleta 06/27 [facility] Outpatient Encounter [id number] 07/02 [facility] OFFICE O/P EST MOD 30 MIN [id number] Diagnos is: ICD-10- CM F52.21 Male erectil e disorde r DANYA,JASON Lilly 07/09 [facility] N [facility] OFFICE O/P EST MOD 30 MIN [id number] Diagnos is: ICD-10- CM Z00.00 Encntr for general adult medical exam w/o abnorma l finding s ZEESHAN,RAFA SA S 07/12 [facility] Outpatient Encounter [id number] 09/17 [facility] Outpatient Encounter [id number] 10/26 [facility] CLEAN/INSP ECT BALTAZAR COMP DENT [id number] Diagnos is: ICD-10- CM K08.109 Complet e loss of teeth, unspeci fied cause, unspeci fied class KADOSH,NAF RAYMUNDO 12/10 [facility] Social History Combined list of available smoking, tobacco, and other social history from Department of Defense and Veterans Affairs facilities. Social History Type Response Date Comment Sourc e Tobacco smoking status NHIS VA-TOBACCO USE FORMER CIGARETTES 07/12/2024 [facility] History of tobacco use AL-TOBACCO NEVER USED OTHER TYPE 07/12/2024 [facility] History of tobacco use VA-TOBACCO FORMER USER 07/12/2023 [facility] History of tobacco use VA-TOBACCO FORMER USER 05/14/20[facility]20[facility]2020 [facility]2017 [facility] History of tobacco use QUIT TOBACCO >7 YEARS AGO 06/07/2017 [facility] History of tobacco use LIFETIME NON-USER OF TOBACCO 03/07/2017 [facility] History of tobacco use QUIT TOBACCO >7 YEARS AGO 04/27/2016 [facility] History of tobacco use QUIT TOBACCO >7 YEARS AGO 06/09/2015 [facility] History of tobacco use QUIT TOBACCO >7 YEARS AGO 08/05/2014 [facility] History of tobacco use QUIT TOBACCO >7 YEARS AGO 04/23/2013 [facility] History of tobacco use QUIT TOBACCO >7 YEARS AGO 06/22/2011 [facility] History of tobacco use QUIT TOBACCO >12 MO and <7 YRS AGO 05/19/2010 [facility] History of tobacco use QUIT TOBACCO >12 MO and <7 YRS AGO 07/08/2009 [facility] History of tobacco use QUIT TOBACCO >12 MO and <7 YRS AGO 09/10/2008 [facility] History of tobacco use QUIT TOBACCO >12 MO and <7 YRS AGO 12/30/2006 [facility] History of tobacco use CURRENT NON-TOBACCO USER-HX OF USE 10/04/2005 [facility] History of tobacco use CURRENT NON-TOBACCO USER-HX OF USE 04/28/2005 [facility] History of tobacco use CURRENT NON-TOBACCO USER-HX OF USE 12/16/2004 [facility] History of tobacco use CURRENT TOBACCO USER 01/03/2004 [facility] History of tobacco use CURRENT TOBACCO USER 09/26/2003 [facility] History of tobacco use CURRENT TOBACCO USER 07/09/2003 [facility] This section is an empty social history section. [facility] Plan of Care List of future care activities from Department of Veterans Affairs facilities. Additional future care activities may be listed in the Assessment and Plan section. Date/Time Care Activity Care Activity Detail Facili ty 01/07/2025 AMBULATORY - SURGERY AMBULATORY - SURGERY [facility] Advance Directives List of completed, amended, or rescinded Advance Directives on record at Department of [facility] facilities. An actual copy of the Directive is not included. Date Advance Directive Provider Source 09/13/2002 ADVANCE DIRECTIVE CLOVIS ALVAREZ IS [facility]
--- OUTSIDE RECORDS SUMMARY | 2024-12-14 07:04 | XMS_ITS | Referral Summary ---
Author Organization [facility] [place] [address] [place] [address] [address] [place] [address] Care Team Providers Care Vp Construction Name Role Phone Jam Boyd DO Primary Care Provider [phone] Encounters Date Type Department Care Team Description 11/29/2024 10:00 AM CDT Office Visit [facility] Cardiology [address] [facility] [address] [place] [address] Mike Virk MD Coronary artery disease of [place] artery of [place] heart with stable angina pectoris (Primary Dx); Essential hypertension; Hyperlipidemia LDL goal <70; History of tobacco abuse; Bilateral lower extremity edema from Last 3 Months Allergies Active Allergy Reactions Criticality Noted Date [...] TABLET DAILY 90 tablet 1 5 11/30/19 25 Discontinu ed(Therapy completed) Active Problems Problem Noted [...] artery disease of n ative artery of pit river heart with stable angina pectoris 03/10/2017 Social History Tobacco Use Types Packs/Day Years [...] 11/29/2024 9:58 AM CDT Plan of Treatment Not on file Insurance MEDICARE Death by Party FOR LIFE MEDICARE FOR LIFE MEDICARE [facility] FOR LIFE Care Teams Vp Construction Relationship Specialty Start Date End Date Jam Boyd DO [address] [place] [address] PCP - General Internal Medicine 04/11/24
--- OUTSIDE RECORDS SUMMARY | 2024-12-14 07:04 | XMS_ITS | Encounter Summary ---
Author Organization [facility] Address 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 NEC (Primary Dx) Social History Tobacco Use Types Packs/Day Years Used Date Smoking Tobacco: Never Assessed Sex and Gender Information Value Date Recorded Sex Assigned at Not on file Legal Sex Male 5:25 AM 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 diff 07/04/2024 07/03/2024 07/04/2024 2:55 PM STUDENT COUNSELLOR documented as of this encounter Care Teams Environmental Professional Relationship Specialty Start Date End Date Roel Roa MD [address] [place] [address] PCP - General 10/27/01 documented as of this encounter
--- OUTSIDE RECORDS SUMMARY | 2024-12-14 07:04 | XMS_ITS ---
Author Name [facility] Organization [facility] [place] Address [address] [place] [address] Care Team Providers Care Retail Zone Specialist Name Role Phone JEAN OMER Primary [...] PART A Mar 08, 2004 PART A [id number] MESSI MONTEMAYOR JR PATIENT MEDICARE (WNR) MEDICARE (M) PART A Mar 08, 2004 PART A [id number] MESSI MONTEMAYOR JR PATIENT Selected Encounter This section includes the information on record at [place] for the Encounter. Date/Time Encounter Type Encounter Description Reason Provider Source Jul 09, 2024 11:30 AM OFFICE O/P EST MOD 30 MIN UROLOGY CLINIC ICD-10-CM F52.21 Male erectile disorder KOREY HAGAN Encounter Template Text not used by [facility] Assessments - Encounter Diagnoses This section includes the primary and secondary diagnoses documented for the Encounter. Date/Time Primary/Secondary Diagnosis Diagnosis Name Provider Source Jul 09, 2024 11:47 AM PRIMARY Male erectile disorder SHAQUILLE HAGAN [facility] Plan of Treatment: Future Appointments (+ 6 months) and Future Tests (+/- 45 days) The Plan of Treatment section includes future care activities for the patient from all [place] treatmentfaregency hospital company. This section includes future appointments and future orders which are active, pending or scheduled. Future Appointments This section includes appointments that were scheduled to occur 6 months from the date of the Encounter, up to a maximum of 20 appointments. The data comes from all [place] treatment facilities. Appointment Date/Time Appointment Type Appointme nt Facility Name Jul 12, 2024 11:30 AM AMBULATORY - MEDICINE [facility] December 10, 2024 10:30 AM AMBULATORY - MEDICINE [facility] Jan 07, 2025 11:00 AM AMBULATORY - SURGERY [facility] Lab Results: +/- 30 days of the encounter This section includes the Chemistry and Hematology Lab Results on record with [place] for the patient. Radiology Reports and Pathology Reports are provided separately, in subsequent sections. Lab Results This section contains the Chemistry/Hematology Results that were resulted 30 days before or 30 daysafter the date of the Encounter. Date/Time Source Result Type Result - Unit Interpretation Reference Range Specimen Type Comment Jul 18, 2024 12:36 PM [facility] LIPID PANEL (STL) PLASMA Specimen Type: PLASMA Comment: No hemolysis noted. Ordering Provider: VIRGIL BYERS Report Released Date/Time: Jul 12, 2024 11:50 AM Reporting Lab: [facility] [address] [facility] [phone] Performing Lab: [facility] [address] [facility] [address] CHOLESTEROL 137 mg/dL 0-200 TRIGLYCERIDE 121 mg/dL 0-150 CALCULATED LDL 75 mg/dL HDL(New) 38 mg/dL L >40 Jul 18, 2024 12:36 PM [facility] HGA1C BLOOD Specimen Type: BLOOD No comment entered. Ordering Provider: VIRGIL BYERS Report Released Date/Time: Jul 12, 2024 11:50 AM Reporting Lab: [facility] [address] [facility] [address] Performing Lab: [facility] [address] [facility] [address] HGA1C 6.2 H 4.0-6.0 Jul 18, 2024 12:36 PM [facility] THYROXINE SERUM Specimen Type: SERUM No comment entered. Ordering Provider: VIRGIL BYERS Report Released Date/Time: Jul 12, 2024 11:50 AM Reporting Lab: [facility] [address] [facility] [address] Performing Lab: [facility] [address] [facility] [address] THYROXINE 6.84 ug/dL 4.5-12 Jul 18, 2024 12:36 PM [facility] VITAMIN D, 25-HYDROXY SERUM Specimen Type: SE RUM No comment entered. Ordering Provider: VIRGIL BYERS Report Released Date/Time: Jul 12, 2024 11:50 AM Reporting Lab: [facility] [address] [facility] [address] Performing Lab: [facility] [address] [facility] [address] VITAMIN D, 25-HYDROXY 27.5 ng/mL L 30-96 Jul 18, 2024 12:36 PM [facility] TSH W/ REFLEX FT4 (STL) PLASMA Specimen Type: PLASMA No comment entered. Ordering Provider: VIRGIL BYERS Report Released Date/Time: Jul 12, 2024 11:50 AM Reporting Lab: [facility] [address] [facility] [address] Performing Lab: [facility] [address] [facility] [address] TSH 2.913 u[IU]/mL 0.47-5 Jul 18, 2024 12:36 PM [facility] COMPREHENSIVE METABOLIC PANEL PLASMA Specimen Type: PLASMA Comment: No hemolysis noted. Ordering Provider: VIRGIL BYERS Report Released Date/Time: Jul 12, 2024 11:50 AM Reporting Lab: [facility] [address] [facility] [address] Performing Lab: [facility] [address] [facility] [address] CREATININE 1.20 mg/dL 0.7-1.3 UREA NITROGEN 19.6 [...] 62.3 >60 Jul 18, 2024 12:36 PM [facility] CBC BLOOD Specimen Type: BLOOD No comment entered. Ordering Provider: VIRGIL BYERS Report Released Date/Time: Jul 12, 2024 11:50 AM Reporting Lab: [facility] [address] [facility] [address] Performing Lab: [address] [address] WBC 5.3 10*3/uL 3.6-11.2 RBC 4.40 10*6/uL [...] Height Weight Body Mass Index Source Jul 09, 2024 12:27 PM 97.2 74 97/64 18 95 201.7 29 [facility] Social History: Smoking Status (Most current) and Tobacco Use (All prior to encounter date) This section includes the most current, and the historical, smoking and tobacco- related health factors from the [place] facility where the Encounter took place. Current Smoking Status This section includes the most current smoking, or tobacco-related health factor, from the [place] facility where the Encounter took place. Date/Time Current Smoking Status Comment Amanda [email or web address] May 05, 2021 04:07 PM VA-TOBACCO FORMER USER [facility] Tobacco Use History This section includes a history of the smoking, or tobacco-related health factors, that were collected on or before the date of the Encounter. The data comes from the [place] facility where the Encounter took place. Date/Time Smoking Status/Tobacco Use Comment Edyta wolff May 05, 2021 04:07 PM VA-TOBACCO QUIT 15 YRS OR MORE [facility] January 03, 2004 01:11 PM CURRENT TOBACCO USER [facility] January 03, 2004 01:11 PM SMOKER 1-2 PACKS [facility] January 03, 2004 01:11 PM SMOKER 10-20 . [facility] January 03, 2004 01:11 PM TOBACCO PRECONTEMPLATION STAGE [facility] Sep 26, 2003 01:11 PM CURRENT TOBACCO USER [facility] Sep 26, 2003 01:11 PM SMOKER 1-2 PACKS [facility] Sep 26, 2003 01:11 PM TOBACCO PRECONTEMPLATION STAGE [facility] Jul 09, 2003 01:47 PM CURRENT TOBACCO USER [facility] Jul 09, 2003 01:[address] [facility] Advance Directives: All historical and current Section Date Range: From patient's date of to the date document was created. This section includes ALL of a patient's completed or amended [place] Advance and Rescinded Directives. The entries below indicate that a directive exists for the patient, but an actual copy is not included with this document. The data comes from all [place] facilities. Date Advance Directives Provider Source Sep 13, 2002 ADVANCE DIRECTIVE CLOVIS ALVAREZ IS [facility] Encounter Notes: All associated encounter notes This section contains the clinical notes associated to the Encounter. Date/Time Encounter Note(s) Provider Source Jul 09, 2024 11:12 AM UROLOGY NOTE: LOCAL TITLE: UROLOGY NOTE STANDARD TITLE: UROLOGY NOTE DATE OF NOTE: JUL 09, 2024@11:12 ENTRY DATE: JUL 09, 2024@11:12:16 AUTHOR: SHAQUILLE HAGAN COSIGNER: URGENCY: STATUS: COMPLETED CHIEF COMPLAINT, HPI, EXAM & DATA CC: ED COMPLAINTS: >78 y/o M presents for 6m f/u after undergoing [facility] teaching for his ED >returns to clinic today reporting decreased efficacy of EDEX >no other issues >denies any gross hematuria, dysuria, or recent UTIs >is on medication for gut infection but is otherwise doing well >PSA WNL PMH listed below and reviewed? Yes APPEARANCE / PERFORMANCE STATUS: robust, comfortable CREATININE 1.19 mg/dL 07/15/2023 08:34 PROST. SPECIFIC AG.(PB-STL) 0.419 ng/mL 11/09/2021 08:51 PROST. SPECIFIC AG.(PB-STL) 0.463 ng/mL 12/29/2020 10:36 UA ABNORMALITIES: No URINALYSIS EO data found ASSESSM ENT/PLAN ------- 1-ED >EDEX no longer effective >discussed options to include addition of ROMAIN, TRIMIX >pt would like to trial trimix >counseled pt on medication indications, risks, benefits >will place [facility] >per his request, RTC in 6 mo for f/u >pt voiced understanding and endorses plan MEDS/SUPPLIES: TRIMIX REFERALS: [facility] FOLLOW-UP (when/why): In 6m or sooner as needed for any new or worsening symptoms. (MORE INFORMATION) -- * LABS------ CREATINECREATININE 1.19 mg/dL 07/15/2023 08:34 UANo URINALYSIS EO data found PROST. SPECIFIC AG.(PB-STL) 0.419 ng/mL 11/09/2021 08:51 PROST. 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) 4) Tobacco Use Disorder, Remission (ICD-9-CM 305.1) 5) History of polyp of colon (SNOMED CT [id number]) 6) Osteoarthrosis involving the knee (ICD-9-CM 715.98) 7) Coronary artery disease 8) Hyperlipidemia 9) Gastroesophageal reflux disease without esophagitis 10) Benign essential hypertension 11) Prediabetes 12) Anemia 13) Deficiency of vitamin D3 14) Monoparesis of lower limb 15) Vertigo 16) Exposure to potentially hazardous substance 17) Posttraumatic stress disorder 18) Erectile dysfunction MEDICATIONS: Active Outpatient Medications (including Supplies): Active Outpatient Medications Status 1) ALPROSTADIL 40MCG/CARTRIDGE INJ SYSTEM INJECT 40MCG ACTIVE (1 CARTRIDGE) INTRACAVITY EVERY WEEK NEEDED FOR ERECTILE DYSFUNCTION PRIOR TO SEXUAL ACTIVITY (MAX 4/MONTH) 2) CHOLECALCIF 25MCG (D3-1,000UNIT) TAB TAKE ONE TABLET ACTIVE BY MOUTH ONCE A DAY 3) CYANOCOBALAMIN 500MCG TAB TAKE ONE TABLET BY MOUTH ACTIVE ONCE A DAY FOR VITAMIN B12 SUPPLEMENTATION 4) FOLIC ACID 1MG TAB TAKE ONE TABLET BY MOUTH ONCE A ACTIVE DAY FOR FOLIC ACID SUPPLEMENTATION 5) OMEPRAZOLE 20MG EC CAP TAKE ONE CAPSULE BY MOUTH ACTIVE EVERY MORNING BEFORE A MEAL TO LOWER STOMACH ACID. TAKE 30 MINUTES PRIOR TO FOOD. 6) SERTRALINE HCL 100MG TAB TAKE ONE TABLET BY MOUTH ACTIVE (S) EVERY MORNING FOR MOOD Active Non-VA Medications Status 1) Non-VA AMLODIPINE BESYLATE 5MG TAB 5MG BY MOUTH ONCE ACTIVE A DAY 2) Non-VA ASPIRIN 81MG CHEW TAB 81MG BY MOUTH ONCE A DAY ACTIVE 3) Non-VA ATORVASTATIN CALCIUM 80MG TAB 40MG BY MOUTH ACTIVE EVERY EVENING 4) Non-VA FUROSEMIDE 20MG TAB 20MG BY MOUTH EVERY ACTIVE MORNING 5) Non-VA LISINOPRIL 20MG TAB 10MG BY MOUTH ONCE A DAY ACTIVE 6) Non-VA METOPROLOL TARTRATE 25MG TAB 12.5MG BY MOUTH ACTIVE TWICE A DAY 7) Non-VA NITROGLYCERIN 0.4MG SL TAB 0.4MG UNDER THE ACTIVE TONGUE ONE-TIME NEEDED 13 Total Medications ----THE MOST RELEVANT INFORMATION IS LOCATED ABOVE THE ARROW * PLEASE BE SURE TO LOOK THERE. /saida/ SHAQUILLE DRUMMOND Signed: 07/09/2024 11:48 SHAQUILLE HAGAN [facility]
--- OUTSIDE RECORDS SUMMARY | 2024-12-14 07:04 | XMS_ITS | Encounter Summary ---
Author Organization [facility] Address [address] [place] [address] Care Team Providers Care Elastic Assembler Name Role Phone Roel Roa MD Primary Care Provider [phone] Encounter Details Date Type Department Care Team (Late st Contact Info) Description 02/12/2002 Outpatient Historical Division of Neurology [address] [place] [address] Brandon Davies MD [address] [facility] [address] [place] [address] Social History Tobacco Use Types Packs/Day Years Used Date Smoking Tobacco: Never Assessed Sex and Gender Information Value Date Recorded Sex Assigned at Not on file Legal Sex Male 5:25 AM WEARING APPAREL PRESSER Gender Identity Not on file Sexual Orientation Not on file documented as of this encounter Plan of Treatment Not on file documented as of this encounter Visit Diagnoses Not on filedocumented in this encounter Additional Health Concerns Infection Onset Date Last Indicated Resolved Time C Diff 07/03/2024 08/18/2024 10/17/2024 1:17 AM CDT R/O C. diff 07/04/2024 07/03/2024 07/04/2024 2:55 PM WEARING APPAREL PRESSER documented as of this encounter Care Teams Elastic Assembler Relationship Specialty Start Date End Date Roel Roa MD [address] [place] [address] PCP - General 10/27/01 documented as of this encounter
== END 2024-12-14 07:01 | disposition home or self-care (01) ==
PROVIDERS: PCP Nurse Practitioner; Visit Provider Internal Medicine Cardiovascular Disease
DX: Z87.891 Personal history of nicotine dependence (principal)
CPT/HCPCS: 76706

== ENCOUNTER 2025-03-06 14:09 | Outpatient (CLI) | payer MEDICARE, OTHER, SELFPAY ==
--- NOTE | ~2025-03-06 | XR_ITS ---
Thoracic spine: Clinical Indication: Back pain AP and lateral views were performed. No fracture is seen. There is normal alignment of the vertebrae. There is multilevel mild degenerati ve disc narrowing. 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 Paravertebral soft tissues appear normal. Impression: Mild degenerative change, as above. DISH. Reviewed, dictated and finalized at location . Impression: Mild degenerative change, as above. DISH.
--- OUTSIDE RECORDS SUMMARY | 2025-03-06 14:19 | XMS_ITS | Encounter Summary ---
Author Organization [facility] Address [address] [place] [address] Care Team Providers Care Chief Environmental Commitment Officer Name Role Phone Roel Roa MD Primary Care Provider [phone] Encounter Details Date Type Department Care Team (Late st Contact Info) Description 10/16/2001 Outpatient Historical Division of Neurology [address] [place] [address] Brandon Davies MD [address] [facility] [address] [place] [address] Social History Tobacco Use Types Packs/Day Years Used Date Smoking Tobacco: Never Assessed Sex and Gender Information Value Date Recorded Sex Assigned at Not on file Legal Sex Male 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 diff 07/04/2024 07/03/2024 07/04/2024 2:55 PM HEAD PORTER documented as of this encounter Care Teams Chief Environmental Commitment Officer Relationship Specialty Start Date End Date Roel Roa MD [address] [place] [address] PCP - General 10/27/01 documented as of this encounter
--- OUTSIDE RECORDS SUMMARY | 2025-03-06 14:19 | XMS_ITS | Clinical Summary ---
Author Organization [facility] [address] Address [address] [place] [address] Care Team Providers Care Drain Tile Press Operator Name Role Phone Jam Boyd Primary Care Provider [phone] Allergies Active Allergy Reactions Criticality Noted Date Comments Ibuprofen Anaphylaxis High 02/16/2018 Only in large doses like 800 mg. Pravastatin Diarrhea Low 02/01/2012 Tramadol Itching,Rash,Swelling Medium 09/29/2009 Medications omeprazole (PriLOSEC) 20 mg capsule Take 1 capsule (20 mg total) by mouth daily Active aspirin 81 mg enteric coated tablet Take 1 tablet (81 mg total) by mouth daily 90 tablet 3 01/04/2023 Active sertraline (ZOLOFT) 100 mg tablet Take 1 tablet (100 mg total) by mouth daily Active nitroglycerin (NITROSTAT) 0.[address] 1 tablet (0.4 mg total) under the tongue every 5 (five) minutes as needed for chest pain 25 tablet 1 04/16/2024 Active cholecalciferol 25 mcg (1,000 unit) tablet Take 1 tablet (1,000 Units total) by mouth 07/28/2023 Active cyanocobalamin (Vitamin B-12) 500 mcg tablet Take 1 tablet (500 mcg total) by mouth 07/28/2023 Active folic acid (FOLVITE) 1 mg tablet Take 1 tablet (1 mg total) by mouth 07/28/2023 Active atorvastatin (LIPITOR) 40 mg tablet Take 1 tablet (40 mg total) by mouth daily 90 tablet 3 11/29/2024 Active furosemide (LASIX) 20 mg tabletIndicatio ns:Bilateral lower extremity edema Take 1 tablet (20 mg total) by mouth daily as needed (swelling) 90 tablet 3 11/29/2024 Active lisinopriL (PRINIVIL,ZESTR IL) 10 mg tablet Take 1 tablet (10 mg total) by mouth daily 90 tablet 3 11/29/2024 Active metoprolol tartrate (LOPRESSOR) 25 mg immediate release tablet Take 0.5 tablets (12.5 mg total) by mouth 2 (two) times a day 90 tablet 3 11/29/2024 Active Active Problems Problem Noted Date Diagnosed [...] artery disease of n ative artery of [place] heart with stable angina pectoris 03/10/2017 Encounters Date Type Department Care Team Description 01/14/2025 Telephone [facility] Cardiology [address] [place] [address] Mike Virk MD 01/09/2025 Orders Only [facility] Cardiology at [address] [place] [address] Mike Virk MD History of tobacco abuse 01/08/2025 Telephone [facility] Cardiology [address] [place] [address] Mike Virk MD 12/14/2024 Orders Only [facility] Health Information Management [address] [place] [address] Scanning, Provider from Last 3 Months Surgical History Surgery [...] 9:58 AM CDT Height 176.5 cm (5' 9.5) 11/29/2024 9:58 AM CDT Body Mass Index 28.97 11/29/2024 9:58 AM CDT Plan of Treatment Health Maintenance Due Date Last Done Comments Depression Screening 1945 Fall Risk Assessment 1945 Hepatitis C Screening 1945 Hepatitis B Screening 1964 Abdominal Aortic Aneurysm (A AA) Screen 12/20/2011 Well Visit 65+ 12/20/2011 DTaP/Tdap/Td Vaccine (2 - Td or Tdap) 08/08/2021 08/08/2011, 07/09/2003 Influenza Vaccine (#1) 2025 4, 06/22/2023, 05/14/2022, Additional history exists Pneumococcal vaccine 65+ Completed 017, 04/27/2016, 09/10/2008 Zoster Vaccine Completed 11/09/2021, 05/08, 03/12/2009 Procedures Procedure Name Priority Date/Time Associated Diagnosis Comments SCAN - RADIOLOGY/IMAGING 12/14/2024 from Last 3 Months Results * SCAN - RADIOLOGY/IMAGING (12/14/2024) Anatomical Region Laterality Modality Other us Provider Scanning Final Result from Last 3 Months Insurance MEDICARE [employer] FOR LIFE MEDICARE FOR LIFE Care Teams Drain Tile Press Operator Relationship Specialty Start Date End Date Jam Boyd DO [address] [place] [address] PCP - General Internal Medicine 04/11/24
--- OUTSIDE RECORDS SUMMARY | 2025-03-06 14:19 | XMS_ITS | Encounter Summary ---
Author Organization [facility] Healthcare Address [address] [place] [address] Care Team Providers Care Air Brush Operator Name Role Phone Jam Boyd DO Primary Care Provider [phone] Encounter Details Date Type Department Care Team (Late st Contact Info) Description 12/14/2024 Orders Only [facility] Health Information Management [address] [place] [address] Scanning, Provider Social History Tobacco Use Types Packs/Day Years Used Date Smoking Tobacco: Former Cigarettes Q uit: 10/07/2003 Smokeless Tobacco: Never Alcohol Use Standard Drinks/Week Comments Yes 4 (1 standard drink = 0.6 oz pur e alcohol) daily Sex and Gender Information Value Date Recorded Sex Assigned at Not on file Legal Sex Male 10:09 AM CDT Gender Identity Not on file Sexual Orientation Not on file documented as of this encounter Plan of Treatment Not on file documented as of this encounter Procedures Procedure Name Priority Date/Time Associated Diagnosis Comments SCAN - RADIOLOGY/IMAGING 12/14/2024 documented in this encounter Results * SCAN - RADIOLOGY/IMAGING (12/14/2024) Anatomical Region Laterality Modality Other us Provider Scanning Final Result documented in this encounter Visit Diagnoses Not on filedocumented in this encounter Care Teams Air Brush Operator Relationship Specialty Start Date End Date Jam Boyd DO [address] [facility] [address] [place] [address] PCP - General Internal Medicine 04/11/24 documented as of this encounter
--- OUTSIDE RECORDS SUMMARY | 2025-03-06 14:19 | XMS_ITS | Encounter Summary ---
Author Organization [facility] Address [address] [place] [address] Care Team Providers Care Fur Coat Sewer Name Role Phone Roel Roa MD Primary Care Provider [phone] Encounter Details Date Type Department Care Team (Late st Contact Info) Description 02/12/2002 Outpatient Historical Division of Neurology [address] [place] [address] Brandon Davies MD [address] [facility] [address] [place] [address] Social History Tobacco Use Types Packs/Day Years Used Date Smoking Tobacco: Never Assessed Sex and Gender Information Value Date Recorded Sex Assigned at Not on file Legal Sex Male 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 diff 07/04/2024 07/03/2024 07/04/2024 2:55 PM DIE CAST TECHNICIAN documented as of this encounter Care Teams Fur Coat Sewer Relationship Specialty Start Date End Date Roel Roa MD [address] [place] [address] PCP - General 10/27/01 documented as of this encounter
--- OUTSIDE RECORDS SUMMARY | 2025-03-06 14:19 | XMS_ITS | Encounter Summary ---
Author Name [facility] [place] [facility] [place] Address [address] [place] [address] Care Team Providers Care Eyewear Manufacturing Tech Name Role Phone JEAN OMER Primary Care [...] PART A Mar 08, 2004 PART A [id number] [phone] MESSI BAKER JR PATIENT MEDICARE (WNR) MEDICARE (M) PART A Mar 08, 2004 PART A [id number] MESSI BAKER JR PATIENT Selected Encounter This section includes the information on record at [place] for the Encounter. 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 Date/Time Primary/Secondary Diagnosis Diagnosis Name Provider Source Jan 09, 2025 12:58 PM PRIMARY Benign neoplasm of unspecified choroid JOSE CRUZ LUCEROLAY [facility] Jan 09, 2025 12:58 PM SECONDARY Age-related nuclear cataract, bilateral JOSE CRUZ LUCEROLAY [facility] Jan 09, 2025 12:58 PM SECONDARY Dry eye syndrome of bilateral lacrimal glands [facility] Jan 09, 2025 12:58 PM SECONDARY Presbyopia JOSE CRUZ LUCEROLAY [facility] Plan of Treatment: Future Appointments (+ 6 months) and Future Tests (+/- 45 days) The Plan of Treatment section includes future care activities for the patient [facility] [place] [facility] This section includes future appointments and future orders which are active, pending or scheduled. Future Appointments This section includes appointments that were scheduled to occur 6 months from the date of the Encounter, up to a maximum of 20 appointments. The data comes from all [place] treatment facilities. Appointment Date/Time Appointment Type Appointme nt Facility Name Jan 11, 2025 12:00 PM AMBULATORY - SURGERY [facility] Jul 11, 2025 01:00 PM AMBULATORY - SURGERY [facility] Social History: Smoking Status (Most current) and Tobacco Use (All prior to encounter date) This section includes the most current, and the historical, smoking and tobacco- related health factors from the [place] facility where the Encounter took place. Current Smoking Status This section includes the most current smoking, or tobacco-related health factor, from the [place] facility where the Encounter took place. Date/Time Current Smoking Status Comment Facil ity Jul 12, 2024 11:30 AM VA-TOBACCO USE FOR BETH CIGARETTES [facility] Tobacco Use History This section includes a history of the smoking, or tobacco-related health factors, that were collected on or before the date of the Encounter. The data comes from the [place] facility where the Encounter took place. Date/Time Smoking Status/Tobacco Use Comment F acalejandra Jul 12, 2024 11:30 AM VA-TOBACCO USE FOR BETH CIGARETTES [facility] Jul 12, 2023 11:00 AM VA-TOBACCO FORMER USER [facility] Jul 12, 2023 11:00 AM VA-TOBACCO QUIT 15 YRS OR MORE [facility] May 14, 2022 11:30 AM VA-TOBACCO FORMER USER [facility] May 14, 2022 11:30 AM VA-TOBACCO QUIT 15 YRS OR MORE [facility] May 13, 2020 02:30 PM VA-TOBACCO FORMER USER [facility] May 13, 2020 02:30 PM VA-TOBACCO QUIT 15 YRS OR MORE [facility] Dec 05, 2017 01:35 PM CURRENT NON-TOBACC O USER-HX OF USE [facility] Dec 05, 2017 01:35 PM VA-TOBACCO NEVER USED [facility] Jun 07, 2017 11:34 AM QUIT TOBACCO >7 YEARS AGO [facility] Mar 07, 2017 10:16 AM LIFETIME NON-USER OF TOBACCO [facility] Apr 27, 2016 01:32 PM QUIT TOBACCO >7 YEARS AGO [facility] Jun 09, 2015 01:41 PM QUIT TOBACCO >7 YEARS AGO [facility] Aug 05, 2014 12:53 PM QUIT TOBACCO >7 YEARS AGO [facility] Apr 23, 2013 12:58 PM QUIT TOBACCO >7 YEARS AGO [facility] Jun 22, 2011 08:51 AM QUIT TOBACCO >7 YEARS AGO [facility] May 19, 2010 01:29 PM QUIT TOBACCO >12 M O & <7 YRS AGO [facility] Jul 08, 2009 12:45 PM QUIT TOBACCO >12 M O & <7 YRS AGO [facility] Sep 10, 2008 03:07 PM QUIT TOBACCO >12 M O & <7 YRS AGO [facility] December 30, 2006 11:19 AM QUIT TOBACCO >12 M O & <7 YRS AGO [facility] Oct 04, 2005 02:37 PM CURRENT NON-TOBACC O USER-HX OF USE [facility] Oct 04, 2005 02:37 PM TOBACCO TERMINATION STAGE [facility] Apr 28, 2005 02:02 PM CURRENT NON-TOBACC O USER-HX OF USE [facility] Apr 28, 2005 02:02 PM TOBACCO MAINTENANCE STAGE [facility] December 16, 2004 02:56 PM CURRENT NON-TOBACC O USER-HX OF USE [facility] December 16, 2004 02:56 PM TOBACCO ACTION STAGE [facility] Advance Directives: All historical and current Section Date Range: From patient's date of to the date document was created. This section includes ALL of a patient's completed or amended [place] Advance and Rescinded Directives. The entries below indicate that a directive exists for the patient, but an actual copy is not included with this document. The data comes from all [place] facilities. Date Advance Directives Provider Source Sep 13, 2002 ADVANCE DIRECTIVE CLOVIS ALVAREZ [facility] Encounter Notes: All associated encounter notes This section contains the clinical notes associated to the Encounter. Date/Time Encounter Note(s) Provider Source Jan 09, 2025 03:37 PM OPTOMETRY CONSULT: LOCAL TITLE: OPTOMETRY CONSULT ST STANDARD TITLE: OPTOMETRY CONSULT DATE OF NOTE: JAN 09, 2025@15:37 ENTRY DATE: JAN 09, 2025@15:37:59 AUTHOR: JOSE CRUZ LUCERO EXP COSIGNER: MCKENZIE SOLANO URGENCY: STATUS: COMPLETED REASON FOR IMAGING: RETINAL LESIONS OU Fundus photos taken today (see FORUM) /saida/ JOSE CRUZ LUCERO Optometry Resident Signed: 01/09/2025 15:38 /saida/ MCKENZIE SOLANO, OD Staff Physician, Optometry Cosigned: 01/15/2025 12:40 JOSE CRUZ LUCERO [facility] Jan 09, 2025 02:44 PM ADDENDUM: LOCAL TITLE: Addendum STANDARD TITLE: ADDENDUM DATE OF NOTE: JAN 09, 2025@14:44:23 ENTRY DATE: JAN 09, 2025@14:44:23 AUTHOR: MCKENZIE SOLANO EXP COSIGNER: URGENCY: STATUS: COMPLETED Dr. Lucero, Let's bring back Mr Baker in 6 months for repeat DFE due to new findings in both eyes on exam. Thank you! /saida/ MCKENZIE SLOANO OD Staff Physician, Optometry Signed: 01/09/2025 14:45 Receipt Acknowledged By: 01/09/2025 15:34 /saida/ JOSE CRUZ LUCERO Optometry Resident === --- Original Document --- 01/09/25 OPTOMETRY NOTE: NOEMI: 2023 REASON FOR VISIT: CEE CC: 1. stable vision since NOEMI per pt - dog sat on glasses, using older pair now - (+)burning/tearing upon waking goes away after a few mins - (-)flashes/floaters/curta in over vision 2. 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 Cataracts OU 2. Presbyopia/ref error (+) steel removed x 40+ yrs ago (-) surgeries/injections/lase r FOHx: (-) blindness (-) glaucoma (-) AMD (-) RD Cardiovascular ROS: no change from problem & medication lists CPRS Problem list, medications and allergies reviewed: CPRS Serology for Diabetes GLUCOSE 100 H mg/dL 07/18/2024 12:36 HGA1C 6.2 H % 07/18/2024 12:36 Cardiovascular BP: 128/74 (07/12/2024 11:24) Pulse: 80 (07/12/2024 11:24) Neuro: Orientation: Normal Psych: Mood/Affect: Normal Depression/suicide ideation: NO * - VISUAL ACUITY - DVA WITH correction OD: 20/20- OS: 20/20- Pupils: PERRL OU (-)APD Confrontation: FTFC OU Extra-Ocular Muscles: Full OU Externals/adnexa: Unremarkable OU LMRx: 2023 OD: +3.00-0.29s668 20/15- OS: +3.00-0.86z732 20/15 ADD: +2.50 Refraction: 01/09/2025 OD: +3.25-1.36w566 20/20 OS: +3.00-0.04h789 20/20 OU: 20/15 ADD: +2.50 - SLIT LAMP EXAMINATION - Lids/Lashes/Lacrimal: (-) blepharitis OU Conjunctiva/Sclera: white/quiet OU Cornea: clear OU Ant Chamber: deep and quiet OU Iris: normal, (-)NVI OU Lens: 1-2+ NS OU Intraocular Pressures (Goldmann): 1 gtt Altafluor Date OD OS Time Meds 01/09/2025 12 10 1130 none - RETINAL EVALUATION - DFE Dilated retinal exam: 1130 Instilled 1 gtt phenylephrine 2.5%, 1 gtt tropicamide 1% OU Pt understands the side effects associated with dilation Vitreous: syneresis (-)PVD OU Optic Nerve OD: 0.30 CDR Flat, pink, distinct (-)NVD OS: 0.25 CDR Flat, pink, distinct (-)NVD Vessels: 2/3 OU, (-)NVE OU Posterior Pole: OD: (+)~0.50DD choroidal nevus @ distal IT arcade (-) hemes/exudates/CWS/NVE OS: (-) hemes/exudates/CWS/NVE Macula: OD: Flat, clear (-)CSME OS: Flat, clear (-)CSME Periphery: OD: Flat and attached, (+)large myelinated patch jill OS: Flat and attached, (+)~1DD choroidal nevus @ 3:00 Assessment/Plan 01/09/2025 1. 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 Monitor annually with DFE. 2. Cataracts OU - not visually significant - BCVA cc 20/20 OD/OS/OU - no CE indicated at this time. - Pt ed on use of UV protection when outdoors to slow progression of cataract development. Monitor for visual changes. 3. SABINE OS>OD - symtomatic, using Visine PRN - Start Systane Complete TID-PRN OU. Sent to pharmacy. - Advised pt to d/c Visine. - Monitor at next visit. 4. Presbyopia - subjective improvement in vision with updated rx - Order new specs. - Pt made aware of possible 1-2 wks adapatation period. Recommended building up wear time (+2hrs/day). 5. H/o CN palsy - unknown laterality - onset x 04/2024 - was eval'd by outside provider, likely microvascular e/o complete resolution per pt - denies diplopia today - EOMs full OU - Advised pt to RTC STAT for any sudden onset of new diplopia. - Monitor at next visit. Pt edu on all findings and given the opportunity to have questions answered RTC 12 mos for CEE or sooner PRN /saida/ JOSE CRUZ LUCERO Optometry Resident Signed: 01/09/2025 13:03 /es/ MCKENZIE SOLANO OD Staff Physician, Optometry Cosigned: 01/09/2025 14:43 01/09/2025 ADDENDUM STATUS: COMPLETED I have reviewed the history, findings and agree with the assessment and plan as charted in CPRS on this established patient. /saida/ MCKENZIE SOLANO, OD Staff Physician, Optometry Signed: 01/09/2025 14:43 MCKENZIE SOLANO [facility] Jan 09, 2025 12:10 PM OPTOMETRY NOTE: LOCAL TITLE: EYEGLASS PRESCRIPTION NOTE STL STANDARD TITLE: OPTOMETRY NOTE DATE OF NOTE: JAN 09, 2025@12:10 ENTRY DATE: JAN 09, 2025@12:10:28 AUTHOR: JOSE CRUZ LUCERO EXP COSIGNER: URGENCY: STATUS: COMPLETED DATE OF LAST EYE EXAM:JAN 09, 2025 OD: +3.25-1.49b294 OS: +3.00-0.08x062 ADD: +2.50 LENS MATERIAL: Polycarbonate LENS TYPE: PAL - Previous wearer Other Add Ons: Photochromic lenses included due to medical condition, Anti-reflective Additional Comments: /saida/ JOSE CRUZ LUCERO Optometry Resident Signed: 01/09/2025 12:10 JOSE CRUZ LUCERO [facility] Jan 09, 2025 11:16 AM OPTOMETRY NOTE: LOCAL TITLE: OPTOMETRY NOTE STANDARD TITLE: OPTOMETRY NOTE DATE OF NOTE: JAN 09, 2025@11:16 ENTRY DATE: JAN 08, 2025@11:59:02 AUTHOR: JOSE CRUZ LUCERO EXP COSIGNER: MCKENZIE SOLANO URGENCY: STATUS: COMPLETED OPTOMETRY NOTE Has ADDENDA NOEMI: 2023 REASON FOR VISIT: CEE CC: 1. stable vision since NOEMI per pt - dog sat on glasses, using older pair now - (+)burning/tearing upon waking goes away after a few mins - (-)flashes/floaters/curta in over vision 2. 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 Cataracts OU 2. Presbyopia/ref error (+) steel removed x 40+ yrs ago (-) surgeries/injections/lase r FOHx: (-) blindness (-) glaucoma (-) AMD (-) RD Cardiovascular ROS: no change from problem & medication lists CPRS Problem list, medications and allergies reviewed: CPRS Serology for Diabetes GLUCOSE 100 H mg/dL 07/18/2024 12:36 HGA1C 6.2 H % 07/18/2024 12:36 Cardiovascular BP: 128/74 (07/12/2024 11:24) Pulse: 80 (07/12/2024 11:24) Neuro: Orientation: Normal Psych: Mood/Affect: Normal Depression/suicide ideation: NO * - VISUAL ACUITY - DVA WITH correction OD: 20/20- OS: 20/20- Pupils: PERRL OU (-)APD Confrontation: FTFC OU Extra-Ocular Muscles: Full OU Externals/adnexa: Unremarkable OU LMRx: 2023 OD: +3.00-0.18j066 20/15- OS: +3.00-0.05l677 20/15 ADD: +2.50 Refraction: 01/09/2025 OD: +3.25-1.60u781 20/20 OS: +3.00-0.12f536 20/20 OU: 20/15 ADD: +2.50 - SLIT LAMP EXAMINATION - Lids/Lashes/Lacrimal: (-) blepharitis OU Conjunctiva/Sclera: white/quiet OU Cornea: clear OU Ant Chamber: deep and quiet OU Iris: normal, (-)NVI OU Lens: 1-2+ NS OU Intraocular Pressures (Goldmann): 1 gtt Altafluor Date OD OS Time Meds 01/09/2025 12 10 1130 none - RETINAL EVALUATION - DFE Dilated retinal exam: 1130 Instilled 1 gtt phenylephrine 2.5%, 1 gtt tropicamide 1% OU Pt understands the side effects associated with dilation Vitreous: syneresis (-)PVD OU Optic Nerve OD: 0.30 CDR Flat, pink, distinct (-)NVD OS: 0.25 CDR Flat, pink, distinct (-)NVD Vessels: 2/3 OU, (-)NVE OU Posterior Pole: OD: (+)~0.50DD choroidal nevus @ distal IT arcade (-) hemes/exudates/CWS/NVE OS: (-) hemes/exudates/CWS/NVE Macula: OD: Flat, clear (-)CSME OS: Flat, clear (-)CSME Periphery: OD: Flat and attached, (+)large myelinated patch jill OS: Flat and attached, (+)~1DD choroidal nevus @ 3:00 Assessment/Plan 01/09/2025 1. 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 Monitor annually with DFE. 2. Cataracts OU - not visually significant - BCVA cc 20/20 OD/OS/OU - no CE indicated at this time. - Pt ed on use of UV protection when outdoors to slow progression of cataract development. Monitor for visual changes. 3. SABINE OS>OD - symtomatic, using Visine PRN - Start Systane Complete TID-PRN OU. Sent to pharmacy. - Advised pt to d/c Visine. - Monitor at next visit. 4. Presbyopia - subjective improvement in vision with updated rx - Order new specs. - Pt made aware of possible 1-2 wks adapatation period. Recommended building up wear time (+2hrs/day). 5. H/o CN palsy - unknown laterality - onset x 04/2024 - was eval'd by outside provider, likely microvascular e/o complete resolution per pt - denies diplopia today - EOMs full OU - Advised pt to RTC STAT for any sudden onset of new diplopia. - Monitor at next visit. Pt edu on all findings and given the opportunity to have questions answered RTC 12 mos for CEE or sooner PRN /saida/ JOSE CRUZ LUCERO Optometry Resident Signed: 01/09/2025 13:03 /saida/ MCKENZIE SOLANO, LINDA Staff Physician, Optometry Cosigned: 01/09/2025 14:43 01/09/2025 ADDENDUM STATUS: COMPLETED I have reviewed the history, findings and agree with the assessment and plan as charted in CPRS on this established patient. /raya SOLANO OD Staff Physician, Optometry Signed: 01/09/2025 14:43 01/09/2025 ADDENDUM STATUS: COMPLETED Dr. Lucero, Let's bring back Mr Baker in 6 months for repeat DFE due to new findings in both eyes on exam. Thank you! /raya SOLANO OD Staff Physician, Optometry Signed: 01/09/2025 14:45 Receipt Acknowledged By: * AWAITING SIGNATURE * JOSE CRUZ LUCERO [facility]
--- OUTSIDE RECORDS SUMMARY | 2025-03-06 14:19 | XMS_ITS | Referral Summary ---
Author Organization [place] [address] [address] [place] [address] Care Team Providers Care Chain Carrier Name Role Phone Jam Boyd Primary Care Provider [phone] Encounters Date Type Department Care Team Description 01/14/2025 Telephone [facility] Cardiology [address] [place] [address] [address] [place] [address] Mike Virk MD 01/09/2025 Orders Only [facility] Medical [facility] Cardiology at [address] [place] [address] Mike Virk MD History of tobacco abuse 01/08/2025 Telephone [facility] [address] [place] [address] [address] [place] [address] Mike Virk MD 12/14/2024 Orders Only [facility] Health Information Management [address] [place] [id number] Scanning, Provider from Last 3 Months Allergies Active Allergy [...] 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
--- OUTSIDE RECORDS SUMMARY | 2025-03-06 14:19 | XMS_ITS | Encounter Summary ---
Author Organization [facility] Address [address] [place] [address] Care Team Providers Care Vocational Rehabilitation Supervisor Name Role Phone Roel Roa MD Primary Care Provider [phone] Encounter Details Date Type Department Care Team (Late st Contact Info) Description 12/18/2001 Outpatient Historical Division of Neurology [address] [place] [address] Brandon Davies MD [address] [facility] [address] [place] [address] Social History Tobacco Use Types Packs/Day Years Used Date Smoking Tobacco: Never Assessed Sex and Gender Information Value Date Recorded Sex Assigned at Not on file 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 diff 07/04/2024 07/03/2024 07/04/2024 2:55 PM LEASE ADMINISTRATOR documented as of this encounter Care Teams Vocational Rehabilitation Supervisor Relationship Specialty Start Date End Date Roel Roa MD [address] [place] [address] PCP - General 10/27/01 documented as of this encounter
--- OUTSIDE RECORDS SUMMARY | 2025-03-06 14:19 | XMS_ITS | Encounter Summary ---
Author Organization [facility] Address [address] [place] [address] Care Team Providers Care Evp And Chief Operating Officer Name Role Phone Roel Roa MD Primary Care Provider [phone] Encounter Details Date Type Department Care Team (Latest Contact Info) Description 10/27/2001 Outpatient Historical [facility] Brandon Davies MD [address] [facility] [address] [address] DIZZINESS AND GIDDINESS (Primary Dx) Social History Tobacco Use Types Packs/Day Years Used Date Smoking Tobacco: Never Assessed Sex and Gender Information Value Date Recorded Sex Assigned at Not on file Legal Sex Male 5:25 AM 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 diff 07/04/2024 07/03/2024 07/04/2024 2:55 PM SECURITY TECHNICIAN documented as of this encounter Care Teams Evp And Chief Operating Officer Relationship Specialty Start Date End Date Roel Roa MD [address] [place] [address] PCP - General 10/27/01 documented as of this encounter
--- OUTSIDE RECORDS SUMMARY | 2025-03-06 14:19 | XMS_ITS | Clinical Summary ---
Author Organization [facility] Address [address] [place] [address] Phone Care Team Providers Care Desktop Administrator Name Role Phone Roel Roa MD Primary Care Provider [phone] Allergies Active Allergy Reactions Criticality Noted Date [...] artery disease of n ative artery of [place] heart with stable angina pectoris 03/10/2017 Overview (10/05/2024): Mar 07, 2017 Entered By: NAIN GARG Comment: s/p LAD Xience stent x 2 (not overlapping) Dyslipidemia 03/10/2017 Essential hypertension 03/10/2017 GERD (gastroesophageal reflux disease) 7 History of tobacco abuse 03/10/2017 Obesity (BMI 30-39.9) 03/10/2017 Pulmonary emphysema 03/10/2017 Presence of stent in coronary artery 03/10/2017 Encounters Date Type Department Care Team Description 02/20/2025 External Device Data [facility] ABSTRACTION Provider, Abstract 02/20/2025 External Device Data [facility] ABSTRACTION Provider, Abstract 01/22/2025 External Device Data [facility] ABSTRACTION Provider, Abstract from Last 3 Months Social History Tobacco Use Types Packs/Day Years Used Date Smoking Tobacco: Former Cigarettes 4 20.6 S tarted: 1984 Passive Smoke Exposure: Never Smokeless Tobacco: Never Tobacco Cessation:Counseling Given: Not Answered Alcohol Use Standard Drinks/Week Comments Yes 4 (1 standard drink = 0.6 oz pur e alcohol) Sex and Gender Information Value Date Recorded Sex Assigned at Not on file Legal Sex Male 5:25 AM COAL BAGGER Gender Identity Not on file Sexual Orientation Not on file Last Filed Vital Signs Vital Sign Reading Time Taken Comments Blood Pressure 115/68 12/03/2024 1:34 PM CDT Pulse 54 12/03/2024 1:34 PM CDT Temperature - - Respiratory Rate 18 10/05/2024 12:26 PM COAL BAGGER Oxygen Saturation - - Inhaled Oxygen Concentration - - Weight 90.3 kg (199 lb) 12/03/2024 1:34 PM CDT Height 175.3 cm (5' 9) 12/03/2024 1:34 PM CDT Body Mass Index 29.39 12/03/2024 1:34 PM CDT Plan of Treatment Health Maintenance Due Date Last Done Comments DTAP/TDAP/TD VACCINES (2 - T d or Tdap) 08/08/2021 08/08/2011, 07/09/2003 RSV VACCINE (60+ or ) (1 - 1-dose 75+ series) 2021 COVID-19 Vaccine (2023-2 5 season) 2024 06/27/2024, 06/22/2023, 05/14/2022, Additional history exists INFLUENZA VACCINE (#1) 2025 , 06/22/2023, 05/14/2022, Additional history exists PNEUMOCOCCAL VACCINE 50+ YEARS Completed 1 , 04/27/2016, 09/10/2008 ZOSTER VACCINE Completed 11/09/2021, 05/08, 03/12/2009 Insurance MEDICARE PART A AND B FOR LIFE [facility] Address: [place] [address] Care Teams Desktop Administrator Relationship Specialty Start Date End Date Roel Roa MD [address] [place] [place] [address] PCP - General 10/27/01
--- OUTSIDE RECORDS SUMMARY | 2025-03-06 14:19 | XMS_ITS | Encounter Summary ---
Author Organization [facility] Address 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 diff 07/04/2024 07/03/2024 07/04/2024 2:55 PM [employer] documented as of this encounter Care Teams Customer Services Coordinator Relationship Specialty Start Date End Date Roel Roa MD [address] [place] [address] PCP - General 10/27/01 documented as of this encounter
--- OUTSIDE RECORDS SUMMARY | 2025-03-06 14:19 | XMS_ITS | Encounter Summary ---
Author Name [facility] Organization [facility] Address [address] [place] [address] Care Team Providers Care Prn Physical Therapist Name Role Phone JEAN OMER Primary Care [...] PART A Mar 08, 2004 PART A [id number] [phone] MESSI MONTEMAYOR JR PATIENT MEDICARE (WNR) MEDICARE (M) PART A Mar 08, 2004 PART A [id number] MESSI MONTEMAYOR JR PATIENT Selected Encounter This section includes the information on record at [place] for the Encounter. Date/Time Encounter Type Encounter Description Reason Provider Source Jan 11, 2025 12:00 PM OFFICE O/P EST LOW 20 [facility] ICD-10-CM N52.9 Male erectile dysfunction, unspecified [facility] Encounter Template Text not used by [facility] Assessments - Encounter Diagnoses This section includes the primary and secondary diagnoses documented for the Encounter. Date/Time Primary/Secondary Diagnosis Diagnosis Name Provider Source Jan 15, 2025 06:50 AM PRIMARY Male erectile dysfunction, unspecified [facility] Plan of Treatment: Future Appointments (+ 6 months) and Future Tests (+/- 45 days) The Plan of Treatment section includes future care activities for the patient from all [place] [facility]. This section includes future appointments and future orders which are active, pending or scheduled. Future Appointments This section includes appointments that were scheduled to occur 6 months from the date of the Encounter, up to a maximum of 20 appointments. The data comes from all [place] treatment facilities. Appointment Date/Time Appointment Type Appointme nt Facility Name Jul 11, 2025 01:00 PM AMBULATORY - SURGERY [facility] Jul 12, 2025 11:30 AM AMBULATORY - MEDICINE [facility] Vital Signs: All taken on the encounter date This section contains inpatient and outpatient Vital Signs collected on the date of the Encounter. Date/Time Temperature Pulse Blood Pressure Respiratory Rate SP02 Pain Height Weight Body Mass Index Source Jan 11, 2025 11:12 AM 97.6 60 151/78 16 96 0 202.6 [facility] Social History: Smoking Status (Most current) and Tobacco Use (All prior to encounter date) This section includes the most current, and the historical, smoking and tobacco- related health factors from the [place] facility where the Encounter took place. Current Smoking Status This section includes the most current smoking, or tobacco-related health factor, from the [place] facility where the Encounter took place. Date/Time Current Smoking Status Comment Facil ity May 05, 2021 04:07 PM VA-TOBACCO FORMER USER [facility] Tobacco Use History This section includes a history of the smoking, or tobacco-related health factors, that were collected on or before the date of the Encounter. The data comes from the [place] facility where the Encounter took place. Date/Time Smoking Status/Tobacco Use Comment F acility May 05, 2021 04:07 PM [place]-TOBACCO QUIT 15 YRS OR MORE [facility] January 03, 2004 01:11 PM CURRENT TOBACCO USER [facility] January 03, 2004 01:11 PM SMOKER 1-2 [facility] January 03, 2004 01:11 PM SMOKER 10-20 [facility] January 03, 2004 01:11 PM TOBACCO PRECONTEMPLATION STAGE [facility] Sep 26, 2003 01:11 PM CURRENT TOBACCO USER [facility] Sep 26, 2003 01:11 PM SMOKER 1-2 [facility] Sep 26, 2003 01:11 PM TOBACCO PRECONTEMPLATION STAGE [facility] Jul 09, 2003 01:47 PM CURRENT TOBACCO USER [facility] Jul 09, 2003 01:47 PM TOBACCO USE [facility] Advance Directives: All historical and current Section Date Range: From patient's date of to the date document was created. This section includes ALL of a patient's completed or amended [place] Advance and Rescinded Directives. The entries below indicate that a directive exists for the patient, but an actual copy is not included with this document. The data comes from all [place] facilities. Date Advance Directives Provider Source Sep 13, 2002 ADVANCE DIRECTIVE CLOVIS ALVAREZ [facility] Encounter Notes: All associated encounter notes This section contains the clinical notes associated to the Encounter. Date/Time Encounter Note(s) Provider Source Jan 11, 2025 11:46 AM UROLOGY NOTE: LOCAL TITLE: UROLOGY NOTE STANDARD TITLE: UROLOGY NOTE DATE OF NOTE: JAN 11, 2025@11:46 ENTRY DATE: JAN 11, 2025@11:46:39 AUTHOR: [facility] EXP COSIGNER: URGENCY: STATUS: COMPLETED CHIEF COMPLAINT, HPI, EXAM & DATA CC: ED COMPLAINTS: 79 y/o W M >here for 6 mo f/u regarding the above >at last visit was sent in rx for trimix, as edex efficacy has decreased >reports back today without having been able to trial yet d/t being sick >no other issues >denies any hematuria, dysuria, or recent UTIs PMH listed below and reviewed? Yes APPEARANCE / PERFORMANCE STATUS: A&O x3; robust, comfortable CREATININE 1.20 mg/dL 07/18/2024 12:36 PROST. SPECIFIC AG.(PB-STL) 0.419 ng/mL 11/09/2021 08:51 PROST. SPECIFIC AG.(PB-STL) 0.463 ng/mL 12/29/2020 10:36 UA ABNORMALITIES: No URINALYSIS EO data found ASSESSME NT & PLAN ADVICE: 1-impotence >encouraged to trial trimix when able >again, counseled on priapism and when to report to the ER >will RTC in 6 mo for f/u FOLLOW-UP (when/why): RTC in 6 mo for f/u and assess efficacy of trimix (MORE INFORMATION) - * LABS------- CREATINECREATININE 1.20 mg/dL 07/18/2024 12:36 UANo URINALYSIS EO data found PROST. SPECIFIC AG.(PB-STL) 0.419 ng/mL 11/09/2021 08:51 PROST. 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) 4) Tobacco Use Disorder, Remission (ICD-9-CM 305.1) 5) History of polyp of colon (SNOMED CT [id number]) 6) Osteoarthrosis involving the knee (ICD-9-CM 715.98) 7) Coronary artery disease 8) Hyperlipidemia 9) Gastroesophageal reflux disease without esophagitis 10) Benign essential hypertension 11) Prediabetes 12) Anemia 13) Deficiency of vitamin D3 14) Monoparesis of lower limb 15) Vertigo 16) Exposure to potentially hazardous substance 17) Posttraumatic stress disorder 18) Erectile dysfunction MEDICATIONS: Active Outpatient Medications (including Supplies): Active Outpatient Medications Status = 1) ALPROSTADIL 40MCG/CARTRIDGE INJ SYSTEM INJECT 40MCG (1 ACTIVE CARTRIDGE) INTRACAVITY EVERY WEEK NEEDED PRIOR TO SEXUAL ACTIVITY (MAX 4/MONTH) Indication: FOR ERECTILE DYSFUNCTION 2) CHOLECALCIF 25MCG (D3-1,000UNIT) TAB TAKE ONE TABLET BY ACTIVE MOUTH ONCE A DAY Indication: FOR VITAMIN D DEFICIENCY 3) CYANOCOBALAMIN 500MCG TAB TAKE ONE TABLET BY MOUTH ONCE A ACTIVE DAY Indication: FOR VITAMIN B12 SUPPLEMENTATION 4) DOCUSATE NA 100MG CAP TAKE ONE CAPSULE BY MOUTH TWICE A DAY ACTIVE HOLD FOR LOOSE STOOL/DIARRHEA. Indication: FOR SOFTENING STOOL 5) FOLIC ACID 1MG TAB TAKE ONE TABLET BY MOUTH ONCE A DAY ACTIVE Indication: FOR FOLIC ACID SUPPLEMENTATION 6) OMEPRAZOLE 20MG EC CAP TAKE ONE CAPSULE BY MOUTH EVERY ACTIVE MORNING BEFORE A MEAL TO LOWER STOMACH ACID. TAKE 30 MINUTES PRIOR TO FOOD. 7) PROPYLENE GLYCOL 0.6% OPH SOLN INSTILL 1 DROP IN AFFECTED ACTIVE EYE(S) THREE TIMES A DAY NEEDED Indication: FOR DRY EYE(S) 8) SERTRALINE HCL 100MG TAB TAKE ONE TABLET BY MOUTH EVERY ACTIVE MORNING FOR MOOD Active Non-VA Medications Status = 1) Non-VA AMLODIPINE BESYLATE 5MG TAB 5MG BY MOUTH ONCE A DAY ACTIVE 2) Non-VA ASPIRIN 81MG CHEW TAB 81MG BY MOUTH ONCE A DAY ACTIVE 3) Non-VA ATORVASTATIN CALCIUM 80MG TAB 40MG BY MOUTH EVERY ACTIVE EVENING 4) Non-VA FUROSEMIDE 20MG TAB 20MG BY MOUTH EVERY MORNING ACTIVE Indication: FOR FLUID RETENTION (EDEMA) 5) Non-VA LISINOPRIL 20MG TAB 10MG BY MOUTH ONCE A DAY ACTIVE Indication: FOR HIGH BLOOD PRESSURE 6) Non-VA METOPROLOL TARTRATE 25MG TAB 12.5MG BY MOUTH TWICE A ACTIVE DAY 7) Non-VA NITROGLYCERIN 0.4MG SL TAB 0.4MG UNDER THE TONGUE ACTIVE ONE-TIME NEEDED Indication: FOR CHEST PAIN 15 Total Medications -- ----THE MOST RELEVANT INFORMATION IS LOCATED ABOVE THE ARROW * PLEASE BE SURE TO LOOK THERE. /saida/ [facility] Physician Heating Element Builder, Urology Signed: 01/15/2025 06:50 [facility]
--- OUTSIDE RECORDS SUMMARY | 2025-03-06 14:19 | XMS_ITS | Encounter Summary ---
Author Organization [facility] Address [address] [place] [address] Care Team Providers Care Print Binding Worker Name Role Phone Alycia Yu NP Primary Care Provider [phone] Jam Boyd DO Primary Care Provider [phone] Encounter Details Date Type Department Care Team (Late st Contact Info) Description 01/13/2024 Orders Only [facility] Health Information Management [address] [place] [id number] Scanning, Provider Social History Tobacco Use Types [...] Date/Time Associated Diagnosis Comments SCAN - RADIOLOGY/IMAGING 01/13/2024 documented in this encounter Results * SCAN - RADIOLOGY/IMAGING (01/13/2024) Anatomical Region Laterality Modality Other us Provider Scanning Final Result documented in this encounter Visit Diagnoses Not on filedocumented in this encounter Care Teams Print Binding Worker Relationship Specialty Start Date End Date Alycia Yu NP [address] [place] [address] PCP - General Nurse Practitioner 06/11/19 04/10/24 Jam Boyd DO [address] [facility] [address] [place] [address] PCP - General Internal Medicine 04/11/24 documented as of this encounter
--- OUTSIDE RECORDS SUMMARY | 2025-03-06 14:20 | XMS_ITS | Continuity of Care Document ---
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 It does not include entries that were removed or entered in error. Problem Status Onset Date Problem Type Date of Resolution Comments Source Anemia Active Condition [facility] Benign essential hypertension Active Condition [facility] Coronary artery disease Active Condition Mar 07, 2017 Entered By: NAIN GARG Comment: s/p LAD Xience stent x 2 (not overlapping ) [facility] Deficiency of vitamin D3 Active Condition [facility] Erectile dysfunction Active Condition [facility] Exposure to potentially hazardous substance Active Condition [facility] Gastroesophageal reflux disease without esophagitis Active Condition [facility] Hearing Loss, Sensorineural, Unspecified Active Condition [facility] History of polyp of colon (SNOMED CT 602738797) Active Condition [facility] Hyperlipidemia Active Condition [facility] Monoparesis of lower limb Active Condition [facility] Osteoarthrosis involving the knee (ICD-9-CM 715.98) Active Condition [facility] Posttraumatic stress disorder Active Condition [facility] Prediabetes Active Condition [facility] PROLONG POSTTRAUM STRESS Active Condition [facility] 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 [facility] Tobacco Use Disorder, Remission (ICD-9-CM 305.1) Active Condition [facility] Vertigo Active Condition [facility] Abdominal bloating (SNOMED CT 336799580) Inactive Condition 06/07/2017 [facility] GERD Inactive Condition 06/07/2017 [facility] Hyperlipidemia * (ICD-9-CM 272.4) Inactive Condition [facility]07[facility]2017 [facility] Routine Medical Exam Inactive Condition 06/07/2017 [facility] SCREENING FOR OTHER AND UNSPECIFIED CARDIOVASCULAR CONDITIONS Inactive Condition 06/07/2017 [facility] Shortness of Breath Inactive Condition 06/07/2017 [facility] Diagnosis: ICD-10-CM N52.9 Male erectile dysfunction, unspecified Active Diagnosis [facility] Diagnosis: ICD-10-CM 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 Diagnosis: ICD-10-CM F52.21 Male erectile disorder Active Diagnosis [facility] Diagnosis: ICD-10-CM Z23 Encounter for immunization Active Diagnosis [facility] Diagnosis: ICD-10-CM H25.13 Age-related nuclear cataract, bilateral Active Diagnosis [facility] Medications Combined list of outpatient medications from Department of Defense and [facility] Affairs facilities.Medications provided include 1) outpatient medications from the last 15 months, and 2) patient-reported medications. Medication Details Route Status Patient Instructions Prescription Expires Prescription Number Last Dispense Date Ordering Provider Order Date Order Qty Source ALPROSTADIL 40MCG/CARTR IDGE INJ,SYSTEM INJECT 40MCG (1 CARTRIDG E) INTRACAV ITY EVERY WEEK NEEDED FOR ERECTILE DYSFUNCT ION PRIOR TO SEXUAL ACTIVITY (MAX 4/MONTH) INTRAC AVITAR Y ACTIVE 09/22/2025 [id number] 5 TELMA HAGAN HARDY M 2024 4 [facility] ALPROSTADIL 40MCG/CARTR IDGE INJ,SYSTEM INJECT 40MCG (1 CARTRIDG E) INTRACAV ITY EVERY WEEK NEEDED FOR ERECTILE DYSFUNCT ION PRIOR TO SEXUAL ACTIVITY (MAX 4/MONTH) INTRAC AVITAR Y DISCONT INUED 09/17/2024 [id number] BRETTCLAUDIAEunice Lilly 2023 4 [facility] AMLODIPINE BESYLATE 5MG TAB TAKE ONE TABLET BY MOUTH ONCE A DAY ORAL ACTIVE Ganesh MCLAIN 2018 [facility] ASPIRIN 81MG TAB,CHEWABL E CHEW AND SWALLOW ONE TABLET BY MOUTH ONCE A DAY ORAL ACTIVE Zachary PERALTA 2017 [facility] Kimberly ATORVASTATI N CA 80MG TAB TAKE ONE-HALF TABLET BY MOUTH EVERY EVENING ORAL ACTIVE Zachary PERALTA 2017 [facility] CHOLECALCIF SHLOMO 25MCG (1,000UNIT) TAB TAKE ONE TABLET BY MOUTH ONCE A DAY ORAL ACTIVE 07/13/2025 [id number] 5 FOX BYERS SSA S 2024 100 [facility] CHOLECALCIF SHLOMO 25MCG (1,000UNIT) TAB TAKE ONE TABLET BY MOUTH ONCE A DAY ORAL DISCONT INUED 07/28/2024 [id number] ABDIRASHID CASE 2022 100 [facility] Compounded Prilosec Capsule Conventiona l 20 mg Oral TAKE ONE CAPSULE BY MOUTH EVERY MORNING BEFORE A MEAL TO LOWER STOMACH ACID. TAKE 30 MINUTES PRIOR TO FOOD. 07/12/2024 [id number] JENA CASE 2023 90 [facility] kimberly CYANOCOBALA MIN 500MCG TAB TAKE ONE TABLET BY MOUTH ONCE A DAY FOR VITAMIN B12 SUPPLEME NTATION ORAL ACTIVE 07/13/2025 [id number] 5 FOX BYESR SSA S 2024 100 [facility] CYANOCOBALA MIN 500MCG TAB TAKE ONE TABLET BY MOUTH ONCE A DAY FOR VITAMIN B12 SUPPLEME NTATION ORAL DISCONT INUED 07/28/2024 [id number] ABDIRASHID CASE M 2022 100 [facility] DOCUSATE NA 100MG CAP TAKE ONE CAPSULE BY MOUTH TWICE A DAY HOLD FOR LOOSE STOOL/DI ARRHEA. ORAL ACTIVE 05/02/2025 [id number] 5 ZEESHAN,FOX SSA S 2024 200 [facility] DOCUSATE NA 100MG CAP TAKE ONE CAPSULE BY MOUTH TWICE A DAY HOLD FOR LOOSE STOOL/DI ARRHEA. ORAL DISCONT INUED 02/10/2025 [id number] 5 ZEESHAN,FOX SSA S 2024 200 [facility] DOCUSATE NA 100MG CAP TAKE ONE CAPSULE BY MOUTH TWICE A DAY HOLD FOR LOOSE STOOL/DI ARRHEA. ORAL DISCONT INUED 11/15/2024 [id number] 5 ZEESHAN,FOX SSA S 2024 200 [facility] ERGOCALCIFE ROL 1,250MCG (50,000UNIT ) CAP TAKE ONE CAPSULE BY MOUTH EVERY WEEK ORAL 11/15/2024 [id number] 5 ZEESHAN,FOX SSA S 2024 12 [facility] FERROUS SO4 325MG TAB TAKE ONE TABLET BY MOUTH ONCE A DAY ORAL 11/15/2024 [id number] 5 ZEESHAN,FOX SSA S 2024 100 [facility] FOLIC ACID 1MG TAB TAKE ONE TABLET BY MOUTH ONCE A DAY FOR FOLIC ACID SUPPLEME NTATION ORAL ACTIVE 07/13/2025 [id number] 5 ZEESHAN,FOX SSA S 2024 100 [facility] FOLIC ACID 1MG TAB TAKE ONE TABLET BY MOUTH ONCE A DAY FOR FOLIC ACID SUPPLEME NTATION ORAL DISCONT INUED 07/28/2024 [id number] [facility] 2022 100 [facility] FUROSEMIDE 20MG TAB TAKE ONE TABLET BY MOUTH EVERY MORNING ORAL ACTIVE [facility] [place] 2023 [facility] LISINOPRIL 20MG TAB TAKE ONE-HALF TABLET BY MOUTH ONCE A DAY ORAL ACTIVE [facility] [place] 2022 [facility] METOPROLOL TARTRATE 25MG TAB TAKE ONE-HALF TABLET BY MOUTH TWICE A DAY ORAL ACTIVE Zachary PERALTA 2017 [facility] NITROGLYCER IN 0.4MG TAB,SUBLING UAL DISSOLVE ONE TABLET UNDER THE TONGUE ONE-TIME NEEDED SUBLIN GUAL ACTIVE [facility] [place] 2023 [facility] OMEPRAZOLE 20MG CAP,EC TAKE ONE CAPSULE BY MOUTH EVERY MORNING BEFORE A MEAL TO LOWER STOMACH ACID. TAKE 30 MINUTES PRIOR TO FOOD. ORAL ACTIVE 07/13/2025 [id number] 5 FOX BYERS SSA S 2023 90 [facility] OMEPRAZOLE 20MG CAP,EC TAKE ONE CAPSULE BY MOUTH EVERY MORNING BEFORE A MEAL TO LOWER STOMACH ACID. TAKE 30 MINUTES PRIOR TO FOOD. ORAL DISCONT INUED 07/12/2024 [id number] 4 [facility] [place] 2022 90 [facility] PROPYLENE GLYCOL 0.6% SOLN,OPH INSTILL 1 DROP IN AFFECTED EYE(S) THREE TIMES A DAY NEEDED FOR DRY EYE(S) OPHTHA LMIC ACTIVE 01/10/2026 [id number] 5 ROSEMARIE JONES 2024 20 [facility] SERTRALINE HCL 100MG TAB TAKE ONE TABLET BY MOUTH EVERY MORNING FOR MOOD ORAL ACTIVE 06/19/2025 [id number] 5 ABDIRASHID CASE M 2024 90 [facility] SERTRALINE HCL 100MG TAB TAKE ONE TABLET BY MOUTH EVERY MORNING FOR MOOD ORAL DISCONT INUED 07/12/2024 [id number] 4 ABDIRASHID CASE M 2023 90 [facility] Allergies, Adverse Reactions, Alerts Combined list of allergies from [facility] and [facility] facilities. It does not include entries that were removed or entered in error. Substance Category Reaction Severity Reaction type Status Date Reported Comments Source IBUPROFEN Propensity to adverse reactions to drug (finding) Swelling, Itching, Urticaria active 0 [facility] Ibuprofen, (IBUPROFEN PMR) Drug allergy (disorder) Swelling, Urticaria, Pruritus active 0 [facility] PRAVACHOL TABLET Propensity to adverse reactions to drug (finding) Diarrhea active 2 [facility] Pravastatin Drug allergy (disorder) Diarrhea active 2 [facility] TRAMADOL Propensity to adverse reactions to drug (finding) Swelling, Itching, Eruption active 0 [facility] Tramadol HCl Drug allergy (disorder) Pruritus, Swelling, Eruption of skin active 0 [facility] Tramadol HCl Drug allergy (disorder) Swelling, Eruption of skin, Pruritus active 0 [facility] Tramadol HCl Drug allergy (disorder) Pruritus, Eruption of skin, Swelling active 0 [facility] Immunizations Combined list of available immunizations from the [facility] and [facility] facilities. 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 Status Comments Source COVID-19 (PFIZER), MRNA, LNP-S, PF, NEERAJ-SUCROSE, 30 MCG/0.3 ML (AGES 12+ YEARS) 2023 NOLBERTO DAVIS LEFT DELTO ID [id number] 309 complet ed [facility] INFLUENZA, HIGH-DOSE, TRIVALENT, PF 2023 NOLBERTO DAVIS L D RIGHT DELTO ID [id number] 135 complet ed [facility] INFLUENZA, HIGH-DOSE, QUADRIVALENT 2022 TSE-ALT,CAR LA D LEFT DELTO ID [id number] 197 complet ed Completed Series, [facility] COVID-19 ([place]), MRNA, LNP-S, PF, NEERAJ-SUCROSE, 30 MCG/0.3 ML (AGES 12+ YEARS) 1 2022 [place]A-ALT,CAR LA D RIGHT DELTO ID [id number] 309 complet ed [facility] COVID-19, MRNA, LNP-S, BIVALENT BOOSTER, PF, 30 MCG/0.3 ML DOSE 2021 300 complet ed [facility] INFLUENZA VACCINE, QUADRIVALENT, ADJUVANTED 2021 205 complet ed [facility] INFLUENZA, HIGH DOSE SEASONAL 2021 135 complet ed [facility] ZOSTER RECOMBINANT 2 2021 187 complet ed [facility] COVID-19 ([place]), MRNA, LNP-S, PF, 30 MCG/0.3 ML DOSE 3 2020 208 complet ed PFR; [id number]; 2 [facility] INFLUENZA VACCINE, QUADRIVALENT, ADJUVANTED 2020 205 complet ed [facility] INFLUENZA, HIGH-DOSE, QUADRIVALENT 2020 197 complet ed [facility] ZOSTER RECOMBINANT 1 2020 187 complet ed [facility] COVID-19 ([place]), MRNA, LNP-S, PF, 30 MCG/0.3 ML DOSE 2 2020 208 complet ed PFR; [id number]; 1 [facility] COVID-19 (PFIZER), MRNA, LNP-S, PF, 30 MCG/0.3 ML DOSE 1 2020 208 complet ed PFR; [id number]; 1 [facility] INFLUENZA, HIGH-DOSE, QUADRIVALENT 2019 197 complet ed [facility] INFLUENZA, INJECTABLE, QUADRIVALENT, PRESERVATIVE FREE 2017 150 complet ed [facility] INFLUENZA, INJECTABLE, QUADRIVALENT, PRESERVATIVE FREE 2016 150 complet ed [facility] PNEUMOCOCCAL POLYSACCHARID E [id number] 2016 33 complet ed [facility] INFLUENZA, SEASONAL, INJECTABLE, PRESERVATIVE FREE 2015 140 complet ed [facility] PNEUMOCOCCAL CONJUGATE PCV 13 2015 133 complet ed [facility] INFLUENZA, SEASONAL, INJECTABLE, PRESERVATIVE FREE 2014 140 complet ed [facility] INFLUENZA, SEASONAL, INJECTABLE, PRESERVATIVE FREE 2013 140 complet ed [facility] INFLUENZA, UNSPECIFIED FORMULATION 2012 88 complet ed [facility] INFLUENZA, UNSPECIFIED FORMULATION 2011 88 complet ed [facility] INFLUENZA, UNSPECIFIED FORMULATION 2011 88 complet ed [facility] TDAP 2011 115 complet ed [facility] INFLUENZA, UNSPECIFIED FORMULATION 2010 88 complet ed [facility] INFLUENZA, UNSPECIFIED FORMULATION 2010 88 complet ed [facility] INFLUENZA, UNSPECIFIED FORMULATION 2008 88 complet ed [facility] INFLUENZA, UNSPECIFIED FORMULATION 2008 88 complet ed [facility] ZOSTER LIVE 2008 121 complet ed [facility] PNEUMOCOCCAL, UNSPECIFIED FORMULATION 2008 109 complet ed [facility] OUTSIDE FLU SHOT (HISTORICAL) 2004 88 complet ed [facility] TD(ADULT) UNSPECIFIED FORMULATION 2002 139 complet ed [facility] Results Combined list of recent chemistry, hematology and other laboratory results from Department of Defense and Veterans Affairs, ranging from 15 months to all on record, depending upon the facility. Order Name Results Value Reference Range Date Interpretation Specimen Comments Source LIPID PANEL (STL) CHOLESTEROL [MASS/VOLUM E] IN SERUM OR PLASMA 137 mg/dL 0 - 200 07/18 Specimen Type: PLASMA Comment: No hemolysis noted. Ordering Provider: SHAYLA BYERS Report Released Date/Time: Jul 12, 2024 11:50 AM Reporting Lab: [address] [address] Performing Lab: [address] [address] [facility] LIPID PANEL (STL) TRIGLYCERID E [MASS/VOLUM E] IN SERUM OR PLASMA 121 mg/dL 0 - 150 07/18 Specimen Type: PLASMA Comment: No hemolysis noted. Ordering Provider: SHAYLA BYERS Report Released Date/Time: Jul 12, 2024 11:50 AM Reporting Lab: [address] [address] Performing Lab: [address] [address] [facility] LIPID PANEL (STL) CHOLESTEROL IN LDL [MASS/VOLUM E] IN SERUM OR PLASMA BY CALCULATION 75 mg/dL 07/18 Specimen Type: PLASMA Comment: No hemolysis noted. Ordering Provider: SHAYLA BYERS Report Released Date/Time: Jul 12, 2024 11:50 AM Reporting Lab: [address] [place] [address] Performing Lab: [address] [address] [facility] LIPID PANEL (STL) CHOLESTEROL IN HDL [MASS/VOLUM E] IN SERUM OR PLASMA 38 mg/dL 40 07/18 L Specimen Type: PLASMA Comment: No hemolysis noted. Ordering Provider: SHAYLA BYERS Report Released Date/Time: Jul 12, 2024 11:50 AM Reporting Lab: [address] [address] Performing Lab: [address] [phone] HGA1C HEMOGLOBIN A1C/HEMOGLO BIN.TOTAL IN BLOOD 6.2 4.0 - 6.0 07/18 H Specimen Type: BLOOD No comment entered. Ordering Provider: SHAYLA BYERS Report Released Date/Time: Jul 12, 2024 11:50 AM Reporting Lab: [address] [address] Performing Lab: [address] [phone] THYROXINE THYROXINE (T4) [MASS/VOLUM E] IN SERUM OR PLASMA 6.84 ug/dL 4.5 - 12 07/18 Specimen Type: SERUM No comment entered. Ordering Provider: SHAYLA BYERS Report Released Date/Time: Jul 12, 2024 11:50 AM Reporting Lab: [address] [address] Performing Lab: [address] [address] [facility] VITAMIN D, 25-HYDROX Y 25-HYDROXYV ITAMIN D3 [MASS/VOLUM E] IN SERUM OR PLASMA 27.5 ng/mL 30 - 96 07/18 L Specimen Type: SERUM No comment entered. Ordering Provider: SHAYLA BYERS Report Released Date/Time: Jul 12, 2024 11:50 AM Reporting Lab: [facility] [address] [place] [address] Performing Lab: [address] [address] [facility] COMPREHEN SIVE METABOLIC PANEL CREATININE [MASS/VOLUM E] IN SERUM OR PLASMA 1.20 mg/dL 0.7 - 1.3 07/18 Specimen Type: PLASMA Comment: No hemolysis noted. Ordering Provider: SHAYLA BYERS Report Released Date/Time: Jul 12, 2024 11:50 AM Reporting Lab: [address] [address] Performing Lab: [address] [address] [facility] COMPREHEN SIVE METABOLIC PANEL UREA NITROGEN [MASS/VOLUM E] IN SERUM OR PLASMA 19.6 mg/dL 9.0 - 25.0 07/18 Specimen Type: PLASMA Comment: No hemolysis noted. Ordering Provider: SHAYLA BYERS Report Released Date/Time: Jul 12, 2024 11:50 AM Reporting Lab: [address] [address] Performing Lab: [address] [address] [facility] COMPREHEN SIVE METABOLIC PANEL GLUCOSE [MASS/VOLUM E] IN SERUM OR PLASMA 100 mg/dL 72 - 99 07/18 H Specimen Type: PLASMA Comment: No hemolysis noted. Ordering Provider: SHAYLA BYERS Report Released Date/Time: Jul 12, 2024 11:50 AM Reporting Lab: [address] [address] Performing Lab: [address] [address] [facility] COMPREHEN SIVE METABOLIC PANEL SODIUM [MOLES/VOLU ME] IN SERUM OR PLASMA 142 meq/L 136 - 145 07/18 Specimen Type: PLASMA Comment: No hemolysis noted. Ordering Provider: SHAYLA BYERS Report Released Date/Time: Jul 12, 2024 11:50 AM Reporting Lab: [facility] [address] [facility] [address] Performing Lab: [facility] [address] [facility] [address] [facility] COMPREHEN SIVE METABOLIC PANEL POTASSIUM [MOLES/VOLU ME] IN SERUM OR PLASMA 4.3 meq/L 3.5 - 5 07/18 Specimen Type: PLASMA Comment: No hemolysis noted. Ordering Provider: SHAYLA BYERS Report Released Date/Time: Jul 12, 2024 11:50 AM Reporting Lab: [facility] [address] [place] [phone] Performing Lab: [address] [address] [facility] COMPREHEN SIVE METABOLIC PANEL CHLORIDE [MOLES/VOLU ME] IN SERUM OR PLASMA 107 meq/L 98 - 107 07/18 Specimen Type: PLASMA Comment: No hemolysis noted. Ordering Provider: SHAYLA BYERS Report Released Date/Time: Jul 12, 2024 11:50 AM Reporting Lab: [facility] [address] [place] [address] Performing Lab: [facility] [address] [place] [address] [facility] COMPREHEN SIVE METABOLIC PANEL CARBON DIOXIDE, TOTAL [MOLES/VOLU ME] IN SERUM OR PLASMA 26 meq/L 22 - 31 07/18 Specimen Type: PLASMA Comment: No hemolysis noted. Ordering Provider: SHAYLA BYERS Report Released Date/Time: Jul 12, 2024 11:50 AM Reporting Lab: [facility] [address] [facility] [address] Performing Lab: [facility] [address] [place] [address] [facility] COMPREHEN SIVE METABOLIC PANEL CALCIUM [MASS/VOLUM E] IN SERUM OR PLASMA 9.6 mg/dL 8.4 - 10.4 07/18 Specimen Type: PLASMA Comment: No hemolysis noted. Ordering Provider: SHAYLA BYERS Report Released Date/Time: Jul 12, 2024 11:50 AM Reporting Lab: [place] [address] [facility] [address] Performing Lab: [place] [address] [facility] [address] [facility] COMPREHEN SIVE METABOLIC PANEL PROTEIN [MASS/VOLUM E] IN SERUM OR PLASMA 8.0 g/dL 6 - 8.6 07/18 Specimen Type: PLASMA Comment: No hemolysis noted. Ordering Provider: SHAYLA BYERS Report Released Date/Time: Jul 12, 2024 11:50 AM Reporting Lab: [place] [address] [facility] [address] Performing Lab: [place] [address] [facility] [address] [facility] COMPREHEN SIVE METABOLIC PANEL ALBUMIN [MASS/VOLUM E] IN SERUM OR PLASMA 3.9 g/dL 3.4 - 5 07/18 Specimen Type: PLASMA Comment: No hemolysis noted. Ordering Provider: SHAYLA BYERS Report Released Date/Time: Jul 12, 2024 11:50 AM Reporting Lab: [address] [address] Performing Lab: [address] [address] [facility] COMPREHEN SIVE METABOLIC PANEL BILIRUBIN.T OTAL [MASS/VOLUM E] IN SERUM OR PLASMA 0.4 mg/dL 0.2 - 1.2 07/18 Specimen Type: PLASMA Comment: No hemolysis noted. Ordering Provider: SHAYLA BYERS Report Released Date/Time: Jul 12, 2024 11:50 AM Reporting Lab: [address] [address] Performing Lab: [place] [address] [facility] [address] [facility] COMPREHEN SIVE METABOLIC PANEL ALKALINE PHOSPHATASE [ENZYMATIC ACTIVITY/VO LUME] IN SERUM OR PLASMA 99 U/L 40 - 150 07/18 Specimen Type: PLASMA Comment: No hemolysis noted. Ordering Provider: SHAYLA BYERS Report Released Date/Time: Jul 12, 2024 11:50 AM Reporting Lab: [address] [address] Performing Lab: [address] [address] [facility] COMPREHEN SIVE METABOLIC PANEL ASPARTATE AMINOTRANSF ERASE [ENZYMATIC ACTIVITY/VO LUME] IN SERUM OR PLASMA 30 U/L 5 - 34 07/18 Specimen Type: PLASMA Comment: No hemolysis noted. Ordering Provider: SHAYLA BYERS Report Released Date/Time: Jul 12, 2024 11:50 AM Reporting Lab: [address] [address] Performing Lab: [address] [address] [facility] COMPREHEN SIVE METABOLIC PANEL ALANINE AMINOTRANSF ERASE [ENZYMATIC ACTIVITY/VO LUME] IN SERUM OR PLASMA 25 U/L 8 - 40 07/18 Specimen Type: PLASMA Comment: No hemolysis noted. Ordering Provider: SHAYLA BYERS Report Released Date/Time: Jul 12, 2024 11:50 AM Reporting Lab: [address] [address] Performing Lab: [address] [address] [facility] COMPREHEN SIVE METABOLIC PANEL GLOMERULAR FILTRATION RATE/1.73 SQ M.PREDICTED [VOLUME RATE/AREA] IN SERUM, PLASMA OR BLOOD BY CREATININE- BASED FORMULA (CKD-EPI 2020) 62.3 60 07/18 Specimen Type: PLASMA Comment: No hemolysis noted. Ordering Provider: SHAYLA BYERS Report Released Date/Time: Jul 12, 2024 11:50 AM Reporting Lab: [address] [address] Performing Lab: [address] [phone] TSH W/ REFLEX FT4 (STL) THYROTROPIN [UNITS/VOLU ME] IN SERUM OR PLASMA 2.913 u[IU]/ mL 0.47 - 5 07/18 Specimen Type: PLASMA No comment entered. Ordering Provider: SHAYLA BYERS Report Released Date/Time: Jul 12, 2024 11:50 AM Reporting Lab: [address] [address] Performing Lab: [address] [phone] [place] [address] CBC LEUKOCYTES [#/VOLUME] IN BLOOD BY AUTOMATED COUNT 5.3 10*3/u L 3.6 - 11.2 07/18 Specimen Type: BLOOD No comment entered. Ordering Provider: SHAYLA BYERS Report Released Date/Time: Jul 12, 2024 11:50 AM Reporting Lab: [address] [address] Performing Lab: [address] [phone] [place] [address] CBC ERYTHROCYTE S [#/VOLUME] IN BLOOD BY AUTOMATED COUNT 4.40 10*6/u L 4.10 - 5.70 07/18 Specimen Type: BLOOD No comment entered. Ordering Provider: SHAYLA BYERS Report Released Date/Time: Jul 12, 2024 11:50 AM Reporting Lab: [address] [address] Performing Lab: [address] [address] [facility] CBC HEMOGLOBIN [MASS/VOLUM E] IN BLOOD 11.0 g/dL 13.1 - 16.8 07/18 L Specimen Type: BLOOD No comment entered. Ordering Provider: SHAYLA BYERS Report Released Date/Time: Jul 12, 2024 11:50 AM Reporting Lab: [address] [address] Performing Lab: [address] [phone] [place] [address] CBC HEMATOCRIT [VOLUME FRACTION] OF BLOOD 36.2 38.2 - 48.4 07/18 L Specimen Type: BLOOD No comment entered. Ordering Provider: SHAYLA BYERS Report Released Date/Time: Jul 12, 2024 11:50 AM Reporting Lab: [place] [id number] Performing Lab: [address] [id number] CBC MCV [ENTITIC VOLUME] BY AUTOMATED COUNT 82.3 fL 80.0 - 100.0 07/18 Specimen Type: BLOOD No comment entered. Ordering Provider: SHAYLA BYERS Report Released Date/Time: Jul 12, 2024 11:50 AM Reporting Lab: [address] [id number] Performing Lab: [id number] CBC MCH [ENTITIC MASS] BY AUTOMATED COUNT 25.0 pg 27.0 - 34.0 07/18 L Specimen Type: BLOOD No comment entered. Ordering Provider: SHAYLA BYERS Report Released Date/Time: Jul 12, 2024 11:50 AM Reporting Lab: [address] [address] Performing Lab: [address] [address] [facility] CBC MCHC [MASS/VOLUM E] BY AUTOMATED COUNT 30.4 g/dL 33.0 - 36.0 07/18 L Specimen Type: BLOOD No comment entered. Ordering Provider: SHAYLA BYERS Report Released Date/Time: Jul 12, 2024 11:50 AM Reporting Lab: [facility] [address] [place] [address] Performing Lab: [facility] [address] [place] [address] [facility] CBC PLATELETS [#/VOLUME] IN BLOOD BY AUTOMATED COUNT 196 10*3/u L 150 - 400 07/18 Specimen Type: BLOOD No comment entered. Ordering Provider: SHAYLA BYERS Report Released Date/Time: Jul 12, 2024 11:50 AM Reporting Lab: [address] [address] Performing Lab: [address] [address] [facility] CBC PLATELET MEAN VOLUME [ENTITIC VOLUME] IN BLOOD BY AUTOMATED COUNT 11.0 fL 7.5 - 11.2 07/18 Specimen Type: BLOOD No comment entered. Ordering Provider: SHAYLA BYERS Report Released Date/Time: Jul 12, 2024 11:50 AM Reporting Lab: [facility] [address] [place] [address] Performing Lab: [address] [address] [facility] CBC ERYTHROCYTE DISTRIBUTIO N WIDTH [RATIO] BY AUTOMATED COUNT 16.4 11.8 - 15.1 07/18 H Specimen Type: BLOOD No comment entered. Ordering Provider: SHAYLA BYERS Report Released Date/Time: Jul 12, 2024 11:50 AM Reporting Lab: [address] [address] Performing Lab: [address] [address] [facility] CBC LYMPHOCYTES /100 LEUKOCYTES IN BLOOD BY AUTOMATED COUNT 19 07/18 Specimen Type: BLOOD No comment entered. Ordering Provider: SHAYLA BYERS Report Released Date/Time: Jul 12, 2024 11:50 AM Reporting Lab: [facility] [address] [facility] [address] Performing Lab: [facility] [address] [facility] [address] [facility] CBC MONOCYTES/1 00 LEUKOCYTES IN BLOOD BY AUTOMATED COUNT 10 07/18 Specimen Type: BLOOD No comment entered. Ordering Provider: SHAYLA BYERS Report Released Date/Time: Jul 12, 2024 11:50 AM Reporting Lab: [facility] [address] [facility] [address] Performing Lab: [facility] [address] [facility] [address] [facility] CBC NEUTROPHILS /100 LEUKOCYTES IN BLOOD BY AUTOMATED COUNT 69 07/18 Specimen Type: BLOOD No comment entered. Ordering Provider: SHAYLA BYERS Report Released Date/Time: Jul 12, 2024 11:50 AM Reporting Lab: [facility] [address] [facility] [address] Performing Lab: [facility] [address] [facility] [address] [facility] CBC EOSINOPHILS /100 LEUKOCYTES IN BLOOD BY AUTOMATED COUNT 1 07/18 Specimen Type: BLOOD No comment entered. Ordering Provider: SHAYLA BYERS Report Released Date/Time: Jul 12, 2024 11:50 AM Reporting Lab: [facility] [address] [facility] [address] Performing Lab: [facility] [address] [place] [phone] [facility] CBC BASOPHILS/1 00 LEUKOCYTES IN BLOOD BY AUTOMATED COUNT 1 07/18 Specimen Type: BLOOD No comment entered. Ordering Provider: SHAYLA BYERS Report Released Date/Time: Jul 12, 2024 11:50 AM Reporting Lab: [facility] [address] [facility] [address] Performing Lab: [address] [address] [facility] CBC LYMPHOCYTES [#/VOLUME] IN BLOOD BY AUTOMATED COUNT 1.03 10*3/u L 0.77 - 4.50 07/18 Specimen Type: BLOOD No comment entered. Ordering Provider: SHAYLA BYERS Report Released Date/Time: Jul 12, 2024 11:50 AM Reporting Lab: [address] [address] Performing Lab: [address] [address] CBC MONOCYTES [#/VOLUME] IN BLOOD BY AUTOMATED COUNT 0.51 10*3/u L 0.19 - 0.80 07/18 Specimen Type: BLOOD No comment entered. Ordering Provider: SHAYLA BYERS Report Released Date/Time: Jul 12, 2024 11:50 AM Reporting Lab: [address] [address] Performing Lab: [address] [phone] [address] CBC NEUTROPHILS [#/VOLUME] IN BLOOD BY AUTOMATED COUNT 3.67 10*3/u L 2.10 - 8.00 07/18 Specimen Type: BLOOD No comment entered. Ordering Provider: SHAYLA BYERS Report Released Date/Time: Jul 12, 2024 11:50 AM Reporting Lab: [address] [address] Performing Lab: [address] [address] [facility] CBC EOSINOPHILS [#/VOLUME] IN BLOOD BY AUTOMATED COUNT 0.07 10*3/u L 0.00 - 0.60 07/18 Specimen Type: BLOOD No comment entered. Ordering Provider: SHAYLA BYERS Report Released Date/Time: Jul 12, 2024 11:50 AM Reporting Lab: [address] [address] Performing Lab: [address] [address] [facility] CBC BASOPHILS [#/VOLUME] IN BLOOD BY AUTOMATED COUNT 0.04 10*3/u L 0.00 - 0.20 07/18 Specimen Type: BLOOD No comment entered. Ordering Provider: SHAYLA BYERS Report Released Date/Time: Jul 12, 2024 11:50 AM Reporting Lab: [address] [address] Performing Lab: [address] [phone] TESTOSTER ONE, FREE PANEL TESTOSTERON E [MASS/VOLUM E] IN SERUM OR PLASMA 620 ng/dL 250 - 1100 07/15 Specimen Type: SERUM Comment: Men with clinically significant hypogonadal symptoms and testosteron e values repeatedly in the range of the 200-300 ng/dL or less, may benefit from testosteron e treatment after adequate risk and benefits counseling. For additional information , please refer to http://educ ation.Portable Scores .Moto Europa/faq/ TotalTestos teroneLCMSM [id number] (This link is being provided for information al/ educational purposes only.) This test was developed and its analytical performance characteris tics have been determined by [employer] [place], [place]. It has not been cleared or approved by the U.S. Food and Drug Administrat ion. This assay has been validated pursuant to the CLIA regulations and is used for clinical purposes. Test Performed by [facility], [employer] [place], [address] [place], [place] Berto Cain M.D., Ph.D., Director of Laboratorie s , CLIA [id number] Ordering Provider: JENA RIVERA Report Released Date/Time: Jul 12, 2023 11:35 AM Reporting Lab: [facility] [address] [address] Performing Lab: [facility] [id number] [place] [address] [facility] TESTOSTER ONE, FREE PANEL ALBUMIN [MASS/VOLUM E] IN SERUM OR PLASMA 4.2 g/dL 3.6 - 5.1 07/15 Specimen Type: SERUM Comment: Men with clinically significant hypogonadal symptoms and testosteron e values repeatedly in the range of the 200-300 ng/dL or less, may benefit from testosteron e treatment after adequate risk and benefits counseling. For additional information , please refer to http://educ ation.Portable Scores .M[employer] Europa/faq/ TotalTestos teroneLCMSM PFZQ397 (This link is being provided for information al/ educational purposes only.) This test was developed and its analytical performance characteris tics have been determined by [employer] [place], [place]. It has not been cleared or approved by the U.S. Food and Drug Administrat ion. This assay has been validated pursuant to the CLIA regulations and is used for clinical purposes. Test Performed by [facility], [employer] [place], [address] [place] [address] Berto Cain M.D., Ph.D., Director of Laboratorie s , CLIA [id number] Ordering Provider: JENA RIVERA Report Released Date/Time: Jul 12, 2023 11:35 AM Reporting Lab: [address] [address] Performing Lab: [facility] [id number] [place] [address] [facility] TESTOSTER ONE, FREE PANEL TESTOSTERON E [...] additional information , please refer to http://educ Answerology.Portable Scores .M[employer] Europa/faq/ TotalTestos teroneLCMSM DETJ617 (This link is being provided for information al/ educational purposes only.) This test was developed and its analytical performance characteris tics have been determined by [employer] [place]. It has not been cleared or approved by the U.S. Food and Drug Administrat ion. This assay has been validated pursuant to the CLIA regulations and is used for clinical purposes. Test Performed by [employer] [place], [employer] [place], [address] [place] [address] Berto Cain M.D., Ph.D., Director of Laboratorie s , CLIA [id number] Ordering Provider: JENA RIVERA Report Released Date/Time: Jul 12, 2023 11:35 AM Reporting Lab: [facility] [address] [place] [address] Performing Lab: [facility] [id number] [place] [address] [facility] TESTOSTER ONE, FREE PANEL TESTOSTERON E.FREE+WEAK LY BOUND [MASS/VOLUM E] IN SERUM OR PLASMA 91.2 ng/dL 15.0 - 150.0 07/15 Specimen Type: SERUM Comment: Men with clinically significant hypogonadal symptoms and testosteron e values repeatedly in the range of the 200-300 ng/dL or less, may benefit from testosteron e treatment after adequate risk and benefits counseling. For additional information , please refer to http://[facility].Portable Scores .M[employer] Europa/faq/ TotalTestos teroneLCMSM [id number] (This link is being provided for information al/ educational purposes only.) This test was developed and its analytical performance characteris tics have been determined by [employer] [place], [place]. It has not been cleared or approved by the U.S. Food and Drug Administrat ion. This assay has been validated pursuant to the CLIA regulations and is used for clinical purposes. Test Performed by [facility], [employer] [place], [address] [place], [place] Berto Cain M.D., Ph.D., Director of Laboratorie s , CLIA [id number] Ordering Provider: JENA RIVERA Report Released Date/Time: Jul 12, 2023 11:35 AM Reporting Lab: [address] [address] Performing Lab: [address] [facility] TESTOSTER ONE, FREE PANEL SEX HORMONE BINDING [...] additional information , please refer to http://educ ation.Portable Scores .M[employer] Europa/faq/ TotalTestos teroneLCMSM [id number] (This link is being provided for information al/ educational purposes only.) This test was developed and its analytical performance characteris tics have been determined by [employer] [place]. It has not been cleared or approved by the U.S. Food and Drug Administrat ion. This assay has been validated pursuant to the CLIA regulations and is used for clinical purposes. Test Performed by [facility], [employer] [place], [address] [place] [address] Berto Cain M.D., Ph.D., Director of Laboratorie s , CLIA [id number] Ordering Provider: JENA RIVERA Report Released Date/Time: Jul 12, 2023 11:35 AM Reporting Lab: [address] [address] Performing Lab: [address] [facility] B12 COBALAMIN (VITAMIN B12) [MASS/VOLUM E] IN SERUM OR PLASMA 242 pg/mL 213 - 816 07/15 Specimen Type: SERUM No comment entered. Ordering Provider: JENA RIVERA Report Released Date/Time: Jul 12, 2023 11:35 AM Reporting Lab: [facility] [address] [facility] [address] Performing Lab: [address] [address] [facility] HGA1C HEMOGLOBIN A1C/HEMOGLO BIN.TOTAL IN BLOOD 6.4 4.0 - 6.0 07/15 H Specimen Type: BLOOD No comment entered. Ordering Provider: JENA RIVERA Report Released Date/Time: Jul 12, 2023 11:35 AM Reporting Lab: [address] [address] Performing Lab: [address] [address] [facility] Vital Signs Combined list of inpatient and outpatient Vital Signs from Department of Defense and Veterans Affairs, ranging from 12 months to all on record, depending upon the facility. Vital Sign Value Date Comments Source SYSTOLIC BLOOD PRESSURE 151 01/11/2025 11:12:02 [facility] DIASTOLIC BLOOD PRESSURE 78 01/11/2025 11:12:02 [facility] PULSE OXIMETRY 96 01/11/2025 11:12:02 [facility] WEIGHT 202.6 01/11/2025 11:12:02 [facility] BMI 29 kg/m2 01/11/2025 11:12:02 [facility] PAIN 0 01/11/2025 11:12:02 [facility] TEMPERATURE 97.6 01/11/2025 11:12:02 [facility] PULSE 60 01/11/2025 11:12:02 [facility] RESPIRATION 16 01/11/2025 11:12:02 [facility] SYSTOLIC BLOOD PRESSURE 128 07/12/2024 11:24:56 [facility] DIASTOLIC BLOOD PRESSURE 74 07/12/2024 11:24:56 [facility] PULSE OXIMETRY 96 07/12/2024 11:24:56 S [facility] WEIGHT 203.3 07/12/2024 11:24:[address] [facility] BMI 29 kg/m2 07/12/2024 11:24:[address] [facility] PAIN 0 07/12/2024 11:24:[address] [facility] TEMPERATURE 98.3 07/12/2024 11:24:56 [facility] PULSE 80 07/12/2024 11:24:[address] [facility] RESPIRATION 16 07/12/2024 11:24:56 [facility] SYSTOLIC BLOOD PRESSURE 97 07/09/2024 12:27:15 [facility] DIASTOLIC BLOOD PRESSURE 64 07/09/2024 12:27:15 [facility] PULSE OXIMETRY 95 07/09/2024 12:27:15 [facility] 201.7 07/09/2024 12:27:15 [facility] BMI 29 kg/m2 07/09/2024 12:27:15 [facility] TEMPERATURE 97.2 07/09/2024 12:27:15 [facility] PULSE 74 07/09/2024 12:27:15 [facility] RESPIRATION 18 07/09/2024 12:27:15 [facility] Encounters Combined list of: 1) Encounters from Department of Veterans Affairs facilities going backup to the last 18 months, not all VA inpatient encounters are included; 2) Encounters from the Department of Defense facilities going backup to 280 months. Location Location Details Encounter Type Encounter Number Reason For Visit Attending Provider ADM Date DC Date Status Disposition Source [facility] Outpatient Encounter [id number] 09/06 [facility] OFFICE O/P NEW MOD 45 MIN [id number] Diagnos is: ICD-10- CM N52.9 Male erectil e dysfunc tion, unspeci fied GIOVANI WSET M 09/17 [facility] OFFICE O/P EST LOW 20 MIN [id number] Diagnos is: ICD-10- CM N52.9 Male erectil e dysfunc tion, unspeci fied GIOVANI WEST M 10/13 [facility] Outpatient Encounter [id number] 10/25 [facility] Outpatient Encounter [id number] 10/27 [facility] ADJUNCTIVE PROCEDURE [id number] Diagnos is: ICD-10- CM K08.109 Complet e loss of teeth, unspeci fied cause, unspeci fied class KADOSH,NAF RAYMUNDO 11/16 [facility] DENTURES COMPLETE MANDIBLE [id number] Diagnos is: ICD-10- CM K08.109 Complet e loss of teeth, unspeci fied cause, unspeci fied class KADOSH,NAF RAYMUNDO 12/08 [facility] [place] 1/ [id number] Diagnos is: ICD-10- CM H25.13 Age-rel ated nuclear catarac t, bilater al LOUANN VELASQUEZ 12/18 [facility] OFFICE O/P EST LOW 20 MIN [id number] Diagnos is: ICD-10- CM N52.9 Male erectil e dysfunc tion, unspeci fied GIOVANI WEST Maxx 01/12 [facility] IMMUNIZATI ON ADMIN [id number] Diagnos is: ICD-10- CM Z23 Encount er for immuniz quin Nicolasa DAVIS 06/27 [facility] Outpatient Encounter [id number] 07/02 [facility] OFFICE O/P EST MOD 30 MIN [id number] Diagnos is: ICD-10- CM F52.21 Male erectil e disorde r JASON HAGANHARDY M 07/09 [facility] OFFICE O/P EST MOD 30 MIN [id number] Diagnos is: ICD-10- CM Z00.00 Encntr for general adult medical exam w/o abnorma l finding s ZEESHAN,RAFA SA S 07/12 [facility] Outpatient Encounter [id number] 09/17 [facility] Outpatient Encounter [id number] 10/26 [facility] CLEAN/INSP ECT BALTAZAR COMP DENT [id number] Diagnos is: ICD-10- CM K08.109 Complet e loss of teeth, unspeci fied cause, unspeci fied class AJ BUCKNER 12/10 [facility] Outpatient Encounter [id number] 01/05 [facility] OFFICE O/P EST MOD 30 MIN [id number] Diagnos is: ICD-10- CM 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 Social History Type Response Date Comment [facility] e Tobacco smoking status NHIS VA-TOBACCO USE FORMER CIGARETTES 07/12/2024 [facility] History of tobacco use VA-TOBACCO NEVER USED OTHER TYPE 07/12/2024 [facility] History of tobacco use VA-TOBACCO FORMER USER 07/12/2023 [facility] History of tobacco use VA-TOBACCO FORMER USER 05/14/2022 [facility] History of tobacco use VA-TOBACCO QUIT 15 YRS OR MORE 05/05/2021 [facility] History of tobacco use VA-TOBACCO FORMER USER 05/13/2020 [facility] History of tobacco use VA-TOBACCO NEVER USED 12/05/2017 [facility] History of tobacco use QUIT TOBACCO >7 YEARS AGO 06/07/2017 [facility] History of tobacco use LIFETIME NON-USER OF TOBACCO 03/07/2017 [facility] History of tobacco use QUIT TOBACCO >7 YEARS AGO 04/27/2016 [facility] History of tobacco use QUIT TOBACCO >7 YEARS AGO 06/09/2015 [facility] History of tobacco use QUIT TOBACCO >7 YEARS AGO 08/05/2014 [facility] History of tobacco use QUIT TOBACCO >7 YEARS AGO 04/23/2013 [facility] History of tobacco use QUIT TOBACCO >7 YEARS AGO 06/22/2011 [facility] History of tobacco use QUIT TOBACCO >12 MO and <7 YRS AGO 05/19/2010 [facility] History of tobacco use QUIT TOBACCO >12 MO and <7 YRS AGO 07/08/2009 [facility] History of tobacco use QUIT TOBACCO >12 MO and <7 YRS AGO 09/10/2008 [facility] History of tobacco use QUIT TOBACCO >12 MO and <7 YRS AGO 12/30/2006 [facility] History of tobacco use CURRENT NON-TOBACCO USER-HX OF USE 10/04/2005 [facility] History of tobacco use CURRENT NON-TOBACCO USER-HX OF USE 04/28/2005 [facility] History of tobacco use CURRENT NON-TOBACCO USER-HX OF USE 12/16/2004 [facility] History of tobacco use CURRENT TOBACCO USER 01/03/2004 [facility] History of tobacco use CURRENT TOBACCO USER 09/26/2003 [facility] History of tobacco use CURRENT TOBACCO USER 07/09/2003 [facility] This section is an empty social history section. DoD Plan of Care List of future care activities from Department [facility] facilities. Additional future care activities may be listed in the Assessment and Plan section. Date/Time Care Activity Care Activity Detail Facili ty 07/11/2025 AMBULATORY - SURGERY AMBULATORY - SURGERY [facility] Advance Directives List of completed, amended, or rescinded Advance Directives on record at Department of Veterans Affairs facilities. An actual copy of the Directive is not included. Date Advance Directive Provider Source 09/13/2002 ADVANCE DIRECTIVE CLOVIS ALVAREZ IS [facility]
== END 2025-03-06 14:10 | disposition home or self-care (01) ==
PROVIDERS: PCP Nurse Practitioner; Visit Provider Nurse Practitioner
DX: M47.814 Spondylosis without myelopathy or radiculopathy, thoracic region (principal); M48.14 Ankylosing hyperostosis [Forestier], thoracic region
CPT/HCPCS: 72070

== ENCOUNTER 2025-06-20 00:48 | Day surgery (SDC) | payer MEDICARE, OTHER, SELFPAY ==
--- OUTSIDE RECORDS SUMMARY | 2025-05-07 04:30 | XMS_ITS ---
Author Organization [facility] Address [address] [place] [address] Care Team Providers Care [place] Worker Name Role Phone ALETHASHAWN Chavez DO Primary Care Provider Shabana Patel Unavailable [phone] Allergies Allergen (clinical drug ingredient) Drug/Non Drug Allergy documented on EMR Reaction Allergy Type Onset Date Status tramadol traMADol in high doses caused a rash Drug Allergy Active pravastatin Pravastatin in high doses caused diarrhea Drug Allergy Active ibuprofen Ibuprofen in high doses caused anaphylaxis Drug Allergy Active REASON FOR VISIT Right Sacroiliac Joint Injection Medications Medication SIG (Take, Route, Frequency, Duration) Notes Start Date End Date Status Cholecalciferol 25 MCG (1000 UT) 1 capsule Orally Once a day Active Folic Acid 1 MG 1 tablet Orally Once a day Active Atorvastatin Calcium 40 MG 1 tablet Oral ly Once a day Active Lisinopril 10 MG 1 tablet Orally Once a day Active Metoprolol Tartrate 25 MG 1 tablet with food Orally Twice a day Active Gabapentin 600 MG 1 tablet Orally Once a day Active Omeprazole 20 MG 1 capsule 1/2 to 1 h our before morning meal Orally Once a day Active tiZANidine HCl 4 MG 1-2 tablets at bedti me as needed Orally at bedtime as needed for 30 days 04/18/2025 Active amLODIPine Besylate 5 MG 1 tablet Orally Once a day Active Alprostadil 500 MCG/ML as directed Injection Active Sertraline HCl 100 MG 1 tablet Orally On ce a day Active Nitrostat 0.4 MG 1 tablet under the tongue and allow to dissolve as needed. Take every 5 minutes up to 3 times if chest pain persists Sublingual Three times a day Active Aspirin 81 81 MG 1 tablet Orally Once a day Active Encounters Encounter Location Date Provider Diagnosis [facility] [address] 05/07/2025 Shabana Samaniego Sacroiliitis, not elsewhere classified M46.1 Assessments Encounter Date Diagnosis (ICD Code) Assessment Notes Treatment Notes Treatment Clinical Notes Section Notes 05/07/2025 Sacroiliitis, not elsewhere classified (ICD-10 - M46.1) Plan Of Treatment No Information Procedure Notes * Category Sub-Category Detail Notes Radiology Interpretation Moderate degenerative c hanges in the R SI joint Progress Notes * Jose BAKERDOB: 7 (79 yo M)Acc No.[id number]:05/07/2025 Injection Patient: Zachary SOARESJose BURNS Provider: Nioclasa Samaniego MD :1945 A ge:79 Y S ex:Male Date:05/07/2025 Address:[address] [place], [place] [id number] Pcp:SHAWN POMPA DO Subjective: * Chief Complaints: * 1 . Right Sacroiliac Joint Injection. * HPI: C omplaints: PROCEDURE NOTE PROCEDURE: 1. Sacroiliac joint injection on the Right 2. SI joint arthrogram 3. Radiographic interpretation of sacroiliac joint. 4. Fluoroscopic imaging for precise needle position localization DIAGNOSIS: 1. Sacroilitis MEDICATION USED: 1. SI joint local anesthetic: 3 ml marcaine 0.5%, 2. Local anesthetic:5 ml lidocaine 1% 3. Intraarticular steroid: 80 mg Depo-Medrol (methylprednisolone) 4. Contrast agent: 3 ml Omnipaque-300, SUBJECTIVE: This patient presents today for a Right sacroiliac joint injection. PROCEDURE DESCRIPTION: Informed consent for the procedure was obtained and the patient signed the procedure consent form. The patient was given sufficient time to ask questions related to the procedure and to discuss expectations and the overall plan of treatment. The patient was brought into the procedure room and placed in the appropriate position for the procedure as noted above. Betadine (or alcohol if the patient carried an iodine allergy history) was used to prepare the skin over the appropriate location for the injection and sterile drapes were applied. Strict aseptic technique was followed during the procedure. The patient was brought into the procedure room and placed in the appropriate position for the procedure above. An initial RADIOLOGIC EXAMINATION, of the SACROILIAC JOINTS; LESS THAN THREE VIEWS was performed with a c-arm fluoroscope. The initial survey found moderate degenerative changes noted through the SI joint. A 22 Ga spinal needle was used for the procedure. This was advanced directly into the joint using oblique and angulated fluoroscopic views to most clearly define the caudal aspect of the posterior SI joint line. Once needle placement was confirmed within the joint by various fluoroscopic views and by the use of contrast agent, the patient received the steroid and local anesthetic as noted above after careful aspiration for blood. The SI joint arthrogram, if performed, is reported below. The patient had no ill effects from the procedure. The patient was taken to and watched in the recovery area for an appropriate period of time and then released to home once discharge criteria were met and discharge planning/subsequent appointments were made. SI JOINT ARTHROGRAM: 1. Contrast was seen to spread evenly within the joint FLUOROSCOPIC IMAGING FINDINGS: An initial survey of the SI joint was performed with the C-arm fluoroscope. 2 views were obtained of the sacrioliac joint. The following were noted: 1. moderate degenerative changes were noted throughout the sacroiliac joint. COMPLICATIONS: NONE RESULTS: Percentage of relief 90% PLAN: 1. Follow post procedure instructions and complete post procedure diary. 2. Continue medications as previously prescribed. 3. Follow up appointment within several weeks to check on patient post injection and to make any necessary medication adjustment and determine subsequent treatment steps. * Medical History: H ypertension, Heart Murmur, Hyperlipidemia, COPD. * Medications: T aking tiZANidine HCl 4 MG Tablet 1-2 tablets at bedtime as needed Orally at bedtime as needed , Taking Gabapentin 600 MG Tablet 1 tablet Orally Once a day , Taking Alprostadil 500 MCG/ML Solution as directed Injection , Taking amLODIPine Besylate 5 MG Tablet 1 tablet Orally Once a day , Taking Metoprolol Tartrate 25 MG Tablet 1 tablet with food Orally Twice a day , Taking Lisinopril 10 MG Tablet 1 tablet Orally Once a day , Taking Atorvastatin Calcium 40 MG Tablet 1 tablet Orally Once a day , Taking Folic Acid 1 MG Tablet 1 tablet Orally Once a day , Taking Cholecalciferol 25 MCG (1000 UT) Capsule 1 capsule Orally Once a day , Taking Nitrostat 0.4 MG Tablet Sublingual 1 tablet under the tongue and allow to dissolve as needed. Take every 5 minutes up to 3 times if chest pain persists Sublingual Three times a day , Taking Sertraline HCl 100 MG Tablet 1 tablet Orally Once a day , Taking Aspirin 81 81 MG Tablet Chewable 1 tablet Orally Once a day , Taking Omeprazole 20 MG Capsule Delayed Release 1 capsule 1/2 to 1 hour before morning meal Orally Once a day * Allergies: I buprofen: in high doses caused anaphylaxis, Pravastatin: in high doses caused diarrhea, traMADol: in high doses caused a rash. Objective: * Vitals: Assessment: * Assessment: 1. S acroiliitis, not elsewhere classified - M46.1 (Primary) Plan: * Treatment: * Procedures: R adiology Interpretation: Moderate degenerative changes i n the R SI joint. ? * Procedure Codes: 2 7096 INJECT SACROILIAC JOINT, Modifiers: RT , 89709 X-RAY EXAM SACROILIAC JOINTS, J1010 Injection, methylprednisolone acetate, 1 mg, Units: 80.00 , Modifiers: JZ * * Electronic signature of Shabana Samaniego MD on 06/20/2025 at 12:51 AM RECTIFICATION PRINTER Sign off status: Pending * Provider: Nicolasa Samaniego MD Date: 0 05/07/2025 Generated for Socratesi dara/Rowan/eTransmitting on: 1 08/20/2024 12:51 AM RECTIFICATION PRINTER History and Physical Notes * HPI (History of Present Illness) Category Sub-Category Detail Notes Category Not es Complaints PROCEDURE NOTE PROCEDURE: 1. Sacroiliac joint injection on the Right 2. SI joint arthrogram 3. Radiographic interpretation of sacroiliac joint. 4. Fluoroscopic imaging for precise needle position localization DIAGNOSIS: 1. Sacroilitis MEDICATION USED: 1. SI joint local anesthetic: 3 ml marcaine 0.5%, 2. Local anesthetic:5 ml lidocaine 1% 3. Intraarticular steroid: 80 mg Depo-Medrol (methylprednisolone) 4. Contrast agent: 3 ml Omnipaque-300, SUBJECTIVE: This patient presents today for a Right sacroiliac joint injection. PROCEDURE DESCRIPTION: Informed consent for the procedure was obtained and the patient signed the procedure consent form. The patient was given sufficient time to ask questions related to the procedure and to discuss expectations and the overall plan of treatment. The patient was brought into the procedure room and placed in the appropriate position for the procedure as noted above. Betadine (or alcohol if the patient carried an iodine allergy history) was used to prepare the skin over the appropriate location for the injection and sterile drapes were applied. Strict aseptic technique was followed during the procedure. The patient was brought into the procedure room and placed in the appropriate position for the procedure above. An initial RADIOLOGIC EXAMINATION, of the SACROILIAC JOINTS; LESS THAN THREE VIEWS was performed with a c-arm fluoroscope. The initial survey found moderate degenerative changes noted through the SI joint. A 22 Ga spinal needle was used for the procedure. This was advanced directly into the joint using oblique and angulated fluoroscopic views to most clearly define the caudal aspect of the posterior SI joint line. Once needle placement was confirmed within the joint by various fluoroscopic views and by the use of contrast agent, the patient received the steroid and local anesthetic as noted above after careful aspiration for blood. The SI joint arthrogram, if performed, is reported below. The patient had no ill effects from the procedure. The patient was taken to and watched in the recovery area for an appropriate period of time and then released to home once discharge criteria were met and discharge planning/subsequent appointments were made. SI JOINT ARTHROGRAM: 1. Contrast was seen to spread evenly within the joint FLUOROSCOPIC IMAGING FINDINGS: An initial survey of the SI joint was performed with the C-arm fluoroscope. 2 views were obtained of the sacrioliac joint. The following were noted: 1. moderate degenerative changes were noted throughout the sacroiliac joint. COMPLICATIONS: NONE RESULTS: Percentage of relief 90% PLAN: 1. Follow post procedure instructions and complete post procedure diary. 2. Continue medications as previously prescribed. 3. Follow up appointment within several weeks to check on patient post injection and to make any necessary medication adjustment and determine subsequent treatment steps.
[2025-06-20] VITALS (20 sets, daily range): BP systolic 107–183; BP diastolic 62–95; PULSE 46–62; RESP 10–18; TEMP 36.5; O2SAT 94–100
--- OUTSIDE RECORDS SUMMARY | 2025-06-20 00:52 | XMS_ITS | Clinical Summary ---
Author Organization [facility] Address [facility] [place] [address] Care Team Providers Care Hardwood Sawyer Name Role Phone Nitesh Kilgore NP Primary Care Provider [phone] Encounters Date Type Department Care Team Description 05/02/2025 2:19 PM CDT - 05/02/2025 11:59 PM CDT Hospital Encounter [facility] [address] [place] [address] Edith Samaniego MD Discharge Disposition: Home or Self Care (Routine Discharge) 05/02/2025 Travel 03/23/2025 10:57 AM CDT - 03/23/2025 11:59 PM CDT Hospital Encounter [place] [address] Nitesh Kilgore NP Discharge Disposition: Home or Self Care (Routine Discharge) 03/23/2025 Travel from Last 3 Months Social History Tobacco Use Types Packs/Day Years Used Date Smoking Tobacco: Never Assessed Sex and Gender Information Value Date Recorded Sex Assigned at Male 03/23/2025 10:47 AM CDT Legal Sex Male 10:47 AM CDT Gender Identity Not on file Sexual Orientation Not on file Plan of Treatment Health Maintenance Due Date Last Done Comments Hepatitis C 1963 Annual Medicare Wellness Visit 12/20/2011 DTaP, Tdap and Td Vaccines (2 - Td or Tdap) 08/08/2021 08/08/2011, 07/09/2003 RSV Immunization or 60+ Years (1 - 1-dose 75+ series) 2021 COVID-19 Vaccine ( season) 2025 06/27/2024, 06/22/2023, 05/14/2022, Additional history exists Influenza Adult (#1) 2025 06/27/2024, 05/14/2022, 06/05/2018, Additional history exists Pneumococcal Vaccine: 50+ Years Completed 06/07/2017, 04/27/2016 Zoster Vaccines Completed 11/09/2021, 05/08, 03/12/2009 Hepatitis A Vaccines Aged Out No long er eligible based on patient's age to complete this topic Meningococcal B Vaccine Aged Out No l onger eligible based on patient's age to complete this topic Meningococcal Vaccine Aged Out No lesa bert eligible based on patient's age to complete this topic RSV Immunizations Under 20 Months Aged Out No longer eligible based on patient's age to complete this topic Procedures Procedure Name Priority Date/Time Associated Diagnosis Comments XR PELVIS MIN 3V Routine 05/02/2025 3:58 PM CDT Sacroiliitis, not elsewhere classified MRI LUMB SPINE WO CON Routine 05/02/2025 3:39 PM CDT Radiculopathy, lumbar region MRI THOR SPINE WO CON Routine 03/23/2025 11:47 AM CDT Radiculopathy, thoracic region Pain in thoracic spine from Last 3 Months Results * XR PELVIS MIN 3V (05/02/2025 3:58 PM CDT) Anatomical Region Laterality Modality Pelvis Radiographic Lindsay ging 05/03/2025 9:00 AM CDT Impressions 05/03/2025 9:04 AM CDT IMPRESSION: Mild joint space narrowing of the SI joints, right greater than left. This may relate to underlying sacroiliitis. If symptoms warrant further imaging evaluation bone scan may be of use. Ordered By: PROVIDER NON-STAFF Interpreted By: Edgar Samaniego MD, 05/03/2025 9:00 AM Narrative 05/03/2025 9:04 AM CDT [facility] [address] [place] [address] Procedure(s): XR PELVIS MIN 3V Date of service: 05/02/2025 3:41 PM Provided clinical information: 79 years, Male, sacroilitis LOW BACK PAIN X 4WKS WORSE ON RT SIDE & GOES DOWN LEG Procedure and materials: 3 views of the pelvis are obtained. Comparison studies: None. Findings: There is mild sclerosis and joint space narrowing about the right SI joint. Mild joint space narrowing is present about the left SI joint. This is present to a lesser degree than that of the right. The bony pelvis is intact. Procedure Note Edgar Samaniego MD - 05/03/2025 [facility] [address] [place] [address] Procedure(s): XR PELVIS MIN 3V Date of service: 05/02/2025 3:41 PM Provided clinical information: 79 years, Male, sacroilitis LOW BACKPAIN X 4WKS WORSE ON RT SIDE & GOES DOWN LEG Procedure and materials: 3 views of the pelvis are obtained. Comparison studies: None. Findings: There is mild sclerosis and joint space narrowing about the right SIjoint. Mild joint space narrowing is present about the left SI joint. Thisis present to a lesser degree than that of the right. The bony pelvis is intact. IMPRESSION: Mild joint space narrowing of the SI joints, right greater than left. Thismay relate to underlying sacroiliitis. If symptoms warrant further imaging evaluation bone scan may be of use. Ordered By: PROVIDER NON-STAFF Interpreted By: Edgar Samaniego MD, 05/03/2025 9:00 AM us Provider Non-Staff GENERAL IMAGING Final Result * MRI LUMB SPINE WO CON (05/02/2025 3:39 PM CDT) Anatomical Region Laterality Modality Spine Magnetic Resonan ce 05/02/2025 4:36 PM CDT Impressions 05/02/2025 4:40 PM CDT IMPRESSION: 1. Multilevel degenerative changes in the lumbar spine contributing to varying degrees of spinal canal and foraminal stenosis, as detailed above. Referred By: EDITH SAMANIEGO Interpreted By: Trenton Razo MD, 05/02/2025 4:36 PM Narrative 05/02/2025 4:40 PM CDT [facility] [address] [place] [address] INDICATION: Lumbar radiculopathy EXAMINATION: MRI lumbar spine without contrast. TECHNIQUE: Multiplanar and multisequence MRI images of the lumbar spine were obtained without contrast. COMPARISON: None FINDINGS: There are 5 lumbar type vertebral bodies designated as L1 through L5; using this numbering system, the conus medullaris terminates at the lower L1 level and appears unremarkable. The lumbar vertebral alignment, vertebral body heights, and facet alignment. Multilevel degenerative changes are evident in the lumbar spine with disc degeneration, endplate osteophytes, ligamentum flavum thickening, and facet hypertrophy noted. Multilevel disc desiccation. Nonspecific heterogeneity of the marrow signal in the spine and pelvis. Imaged portions of the soft tissues reveal a left renal cyst. T12-L1: Ligamentous and facet hypertrophy. No canal or foraminal narrowing. L1-L2: Mild disc bulge with extension into the foramina. Marginal endplate osteophytes. Ligamentous and facet hypertrophy. Minimal canal stenosis. Mild right foraminal narrowing. L2-L3: Mild disc bulge with extension into the foramina. Ligamentous and facet hypertrophy. Marginal endplate osteophytes. Mild canal stenosis. Mild foraminal narrowing. L3-L4: Mild disc bulge with extension into the foramina. Marginal endplate osteophytes. Ligamentous and facet hypertrophy. Mild to moderate canal stenosis. Moderate left and mild right foraminal narrowing. L4-L5: Disc bulge with extension into the foramina. Superimposed central protrusion with annular fissure. Ligamentum flavum thickening. Facet hypertrophy. Bilateral lateral recess and mild to moderate canal stenosis. Moderate left and mild to moderate right foraminal narrowing. L5-S1: Mild disc bulge. Facet hypertrophy. Marginal endplate osteophytes. No canal stenosis. At least mild foraminal narrowing. Procedure Note Trenton Razo MD - 05/02/2025 [facility] [address] [place] [address] INDICATION: Lumbar radiculopathy EXAMINATION: MRI lumbar spine without contrast. TECHNIQUE: Multiplanar and multisequence MRI images of the lumbar spine were obtainedwithout contrast. COMPARISON: None FINDINGS: There are 5 lumbar type vertebral bodies designated as L1 through L5;using this numbering system, the conus medullaris terminates at the lowerL1 level and appears unremarkable. The lumbar vertebral alignment, vertebral body heights, and facetalignment. Multilevel degenerative changes are evident in the lumbar spinewith disc degeneration, endplate osteophytes, ligamentum flavumthickening, and facet hypertrophy noted. Multilevel disc desiccation.Nonspecific heterogeneity of the marrow signal in the spine and pelvis. Imaged portions of the soft tissues reveal a left renal cyst. T12-L1: Ligamentous and facet hypertrophy. No canal or foraminalnarrowing. L1-L2: Mild disc bulge with extension into the foramina. Marginal endplateosteophytes. Ligamentous and facet hypertrophy. Minimal canal stenosis.Mild right foraminal narrowing. L2-L3: Mild disc bulge with extension into the foramina. Ligamentous andfacet hypertrophy. Marginal endplate osteophytes. Mild canal stenosis.Mild foraminal narrowing. L3-L4: Mild disc bulge with extension into the foramina. Marginal endplateosteophytes. Ligamentous and facet hypertrophy. Mild to moderate canalstenosis. Moderate left and mild right foraminal narrowing. L4-L5: Disc bulge with extension into the foramina. Superimposed centralprotrusion with annular fissure. Ligamentum flavum thickening. Facethypertrophy. Bilateral lateral recess and mild to moderate canal stenosis.Moderate left and mild to moderate right foraminal narrowing. L5-S1: Mild disc bulge. Facet hypertrophy. Marginal endplate osteophytes.No canal stenosis. At least mild foraminal narrowing. IMPRESSION: 1. Multilevel degenerative changes in the lumbar spine contributing tovarying degrees of spinal canal and foraminal stenosis, as detailedabove. Referred By: EDITH SAMANIEGO Interpreted By: Trenton Razo MD, 05/02/2025 4:36 PM us Edith Samaniego MD MRI Final Resu lt * MRI THOR SPINE WO CON (03/23/2025 11:47 AM CDT) Anatomical Region Laterality Modality Spine Magnetic Resonan ce 03/31/2025 12:5 5 PM CDT Impressions 03/31/2025 1:00 PM CDT IMPRESSION: 1. Multilevel degenerative changes in the thoracic spine, as detailed above. 2. No obvious thoracic cord signal abnormality identified, though assessment is somewhat degraded by motion/artifact. 3. Tiny indeterminate marrow signal abnormality involving the T10 spinous process. Could consider follow-up MRI thoracic spine in 3 months without and with contrast. Referred By: NITESH KILGORE Interpreted By: Trenton Razo MD, 03/31/2025 12:55 PM Narrative 03/31/2025 1:[address] PM [address] [address] INDICATION: Radiculopathy, thoracic region. Pain. EXAMINATION: MRI of the thoracic spine without contrast. TECHNIQUE: Multiplanar and multisequence MRI images of the thoracic spine were were obtained without contrast. COMPARISON: None FINDINGS: The thoracic vertebral alignment, vertebral body heights, and facet alignment are maintained. Multilevel degenerative changes are evident in the thoracic spine with disc degeneration, endplate osteophytes, ligamentum flavum thickening, and facet hypertrophy noted. There is a tiny T1 hypointense/STIR hyperintense focus involving the T10 spinous process, indeterminate (sagittal T1 and STIR images 10 of 17). Scattered vertebral hemangiomas incidentally noted. Scattered Schmorl's nodes along the endplates. Multilevel disc desiccation. No obvious thoracic cord signal abnormality identified, though assessment is somewhat degraded by motion and artifact. Multilevel disc desiccation and loss of intervertebral disc height. Imaged portions of the soft tissues reveal no acute findings. Left renal cyst. Relevant individual intervertebral levels discussed below. T2-T3: Tiny right paracentral protrusion. No canal or foraminal narrowing. T4-T5: Small left paracentral protrusion. Indentation of the left ventral thecal sac. Foramina patent. T5-T6: Tiny central protrusion. No canal or foraminal narrowing. T6-T7: Disc bulge and left paracentral protrusion. Partial effacement of the ventral thecal sac. Slight flattening of the ventral cord. Foramina patent. T7-T8: Mild disc bulge. Facet hypertrophy. No canal or foraminal narrowing. T8-T9: Facet hypertrophy. Possible tiny right paracentral protrusion. No canal or foraminal narrowing. T9-T10: Facet hypertrophy. No significant canal or foraminal narrowing. T10-T11: Disc bulge. Ligamentous and facet hypertrophy. Partial effacement of the dorsolateral thecal sac. Flattening of the dorsolateral cord, more so on the right. Mild to moderate right greater the left foraminal narrowing. T11-T12: Facet hypertrophy. No canal or foraminal narrowing. T12-L1: Mild disc bulge. Facet hypertrophy. No canal or foraminal narrowing. Procedure Note Trenton Razo MD - 03/31/[address] [address] INDICATION: Radiculopathy, thoracic region. Pain. EXAMINATION: MRI of the thoracic spine without contrast. TECHNIQUE: Multiplanar and multisequence MRI images of the thoracic spinewere were obtained without contrast. COMPARISON: None FINDINGS: The thoracic vertebral alignment, vertebral body heights, and facetalignment are maintained. Multilevel degenerative changes are evident inthe thoracic spine with disc degeneration, endplate osteophytes,ligamentum flavum thickening, and facet hypertrophy noted. There is a tinyT1 hypointense/STIR hyperintense focus involving the T10 spinous process,indeterminate (sagittal T1 and STIR images 10 of 17). Scattered vertebralhemangiomas incidentally noted. Scattered Schmorl's nodes along theendplates. Multilevel disc desiccation. No obvious thoracic cord signalabnormality identified, though assessment is somewhat degraded by motionand artifact. Multilevel disc desiccation and loss of intervertebral discheight. Imaged portions of the soft tissues reveal no acute findings. Left renalcyst. Relevant individual intervertebral levels discussed below. T2-T3: Tiny right paracentral protrusion. No canal or foraminalnarrowing. T4-T5: Small left paracentral protrusion. Indentation of the left ventralthecal sac. Foramina patent. T5-T6: Tiny central protrusion. No canal or foraminal narrowing. T6-T7: Disc bulge and left paracentral protrusion. Partial effacement ofthe ventral thecal sac. Slight flattening of the ventral cord. Foraminapatent. T7-T8: Mild disc bulge. Facet hypertrophy. No canal or foraminalnarrowing. T8-T9: Facet hypertrophy. Possible tiny right paracentral protrusion. Nocanal or foraminal narrowing. T9-T10: Facet hypertrophy. No significant canal or foraminal narrowing. T10-T11: Disc bulge. Ligamentous and facet hypertrophy. Partial effacementof the dorsolateral thecal sac. Flattening of the dorsolateral cord, moreso on the right. Mild to moderate right greater the left foraminalnarrowing. T11-T12: Facet hypertrophy. No canal or foraminal narrowing. T12-L1: Mild disc bulge. Facet hypertrophy. No canal or foraminalnarrowing. IMPRESSION: 1. Multilevel degenerative changes in the thoracic spine, as detailedabove. 2. No obvious thoracic cord signal abnormality identified, thoughassessment is somewhat degraded by motion/artifact. 3. Tiny indeterminate marrow signal abnormality involving the T10 spinousprocess. Could consider follow-up MRI thoracic spine in 3 months withoutand with contrast. Referred By: NITESH KILGORE Interpreted By: Trenton Razo MD, 03/31/2025 12:55 PM Nitesh Kilgore FLAMER AFTER LASTING MRI Final Result from Last 3 Months Insurance MEDICARE [facility] Care Teams Hardwood Sawyer Relationship Specialty Start Date End Date Nitesh Kilgore NP [address] [facility] [address] [place] [address] PCP - General NURSE PRACTITIONER 03/23/25
--- OUTSIDE RECORDS SUMMARY | 2025-06-20 00:52 | XMS_ITS | Encounter Summary ---
Author Organization [facility] Address [address] [place] [address] Care Team Providers Care Wheel Press Clerk Name Role Phone Jam Boyd DO Primary Care Provider [phone] Florencio Kilgore NP Primary Care Provider [phone] Encounter Details Date Type Department Care Team (Late st Contact Info) Description 12/14/2024 Orders Only [facility] [place] [address] [place] [id number] Scanning, Provider Social History Tobacco Use Types [...] on filedocumented in this encounter Care Teams Wheel Press Clerk Relationship Specialty Start Date End Date Jam Boyd DO PCP - General Internal Medicine 04/11/24 06/05/25 Florencio Kilgore NP [address] [place] [address] PCP - General Nurse Practitioner 06/06/25 documented as of this encounter
--- OUTSIDE RECORDS SUMMARY | 2025-06-20 00:52 | XMS_ITS | Encounter Summary ---
Author Organization [facility] Address [address] [place] [address] Care Team Providers Care Stadium Manager Name Role Phone Roel Roa MD Primary Care Provider [phone] Encounter Details Date Type Department Care Team (Late st Contact Info) Description 02/12/2002 Outpatient Historical Division of Neurology [address] [place] [address] Brandon Davies MD [address] [facility] [address] [place] [phone] Social History Tobacco Use Types Packs/Day Years Used Date Smoking Tobacco: Never Assessed Sex and Gender Information Value Date Recorded Sex Assigned at Not on file Legal Sex Male 5:25 AM CONTRACTING ENGINEER Gender Identity Not on file Sexual Orientation Not on file documented as of this encounter Plan of Treatment Not on file documented as of this encounter Visit Diagnoses Not on filedocumented in this encounter Additional Health Concerns Infection Onset Date Last Indicated Resolved Time C Diff 07/03/2024 08/18/2024 10/17/2024 1:17 AM CDT R/O C. diff 07/04/2024 07/03/2024 07/04/2024 2:55 PM CONTRACTING ENGINEER documented as of this encounter Care Teams Stadium Manager Relationship Specialty Start Date End Date Roel Roa MD [address] [place] [address] PCP - General 10/27/01 documented as of this encounter
--- OUTSIDE RECORDS SUMMARY | 2025-06-20 00:52 | XMS_ITS | Encounter Summary ---
Author Organization [facility] Healthcare Address [address] [place] [address] Care Team Providers Care Hose Turner Name Role Phone DebJam Primary Care Provider [phone] Florencio Kilgore NP Primary Care Provider [phone] Reason for Visit * Reason Comments Med Refill Encounter Details Date Type Department Care Team (Late st Contact Info) Description 05/26/2025 Telephone [facility] Medical Group Cardiology [address] [place] [address] Mike Virk MD [address] [place] [address] Med Refill Social History Tobacco Use Types Packs/Day Years [...] on file documented as of this encounter Miscellaneous Notes * Telephone Encounter - Freya Sweeney MA - 06/03/2025 4:20 PM CDT Sent new script * Telephone Encounter - Greta Trujillo - 06/03/2025 3:53 PM CDT Patient called in and is requesting a call back to go over lisinopriL (PRINIVIL,ZESTRIL) 10 mg tablet. I did make him aware that we sent in year supply in November 2024. He states he does not have many pills left. Please advise. Thank you. Contact : [phone] documented in this encounter Plan of Treatment Not on file documented as of this encounter Visit Diagnoses Not on filedocumented in this encounter Care Teams Hose Turner Relationship Specialty Start Date End Date Jam Boyd DO PCP - General Internal Medicine 04/11/24 06/05/25 Florencio Kilgore, LEMUEL [address] [place] [address] PCP - General Nurse Practitioner 06/06/25 documented as of this encounter
--- OUTSIDE RECORDS SUMMARY | 2025-06-20 00:52 | XMS_ITS | Encounter Summary ---
Author Organization [facility] Address [address] [place] [address] Care Team Providers Care Wet Process Technician Name Role Phone Roel Roa MD Primary Care Provider [phone] Encounter Details Date Type Department Care Team (Late st Contact Info) Description 10/16/2001 Outpatient Historical Division of Neurology [address] [place] [address] Brandon Davies MD [address] [facility] [address] [place] [phone] Social History Tobacco Use Types Packs/Day Years Used Date Smoking Tobacco: Never Assessed Sex and Gender Information Value Date Recorded Sex Assigned at Not on file Legal Sex Male 5:25 AM VAMP MAKER Gender Identity Not on file Sexual Orientation Not on file documented as of this encounter Plan of Treatment Not on file documented as of this encounter Visit Diagnoses Not on filedocumented in this encounter Additional Health Concerns Infection Onset Date Last Indicated Resolved Time C Diff 07/03/2024 08/18/2024 10/17/2024 1:17 AM CDT R/O C. diff 07/04/2024 07/03/2024 07/04/2024 2:55 PM VAMP MAKER documented as of this encounter Care Teams Wet Process Technician Relationship Specialty Start Date End Date Roel Roa MD [address] [place] [address] PCP - General 10/27/01 documented as of this encounter
--- OUTSIDE RECORDS SUMMARY | 2025-06-20 00:52 | XMS_ITS | Clinical Summary ---
Author Organization [facility] Address [address] [place] [address] Phone Care Team Providers Care Aircraft Structural Design Engineer Name Role Phone Roel Roa MD Primary Care Provider [phone] Allergies Active Allergy Reactions Criticality Noted Date [...] Alprostadil 40 mcg Kit by Intracavity route. 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 03/10/2017 Overview (10/05/2024): Mar 07, 2017 Entered By: NAIN GARG Comment: s/p LAD Xience stent x 2 (not overlapping) Dyslipidemia 03/10/2017 Essential hypertension 03/10/2017 GERD (gastroesophageal reflux disease) 7 History of tobacco abuse 03/10/2017 Obesity (BMI 30-39.9) 03/10/2017 Pulmonary emphysema 03/10/2017 Presence of stent in coronary artery 03/10/2017 Encounters Date Type Department Care Team Description 04/09/2025 External Device Data ST[facility] ABSTRACTION Provider, Abstract [...] on file Legal Sex Male 5:25 AM CONTROL CLERK REPAIRS Gender Identity Not on file Sexual Orientation Not on file Last Filed Vital Signs Vital Sign Reading Time Taken Comments Blood Pressure 115/68 12/03/2024 1:34 PM CDT Pulse 54 12/03/2024 1:34 PM CDT Temperature - - Respiratory Rate 18 10/05/2024 12:26 PM CONTROL CLERK REPAIRS Oxygen Saturation - - Inhaled Oxygen Concentration [...] ) (1 - 1-dose 75+ series) 2021 INFLUENZA VACCINE (#1) 2025 , 06/22/2023, 05/14/2022, Additional history exists COVID-19 Vaccine (2023-2 5 season) 2025 06/27/2024, 06/22/2023, 05/14/2022, Additional history exists PNEUMOCOCCAL VACCINE 50+ YEARS Completed 1 , 04/27/2016, 09/10/2008 ZOSTER VACCINE Completed 11/09/2021, 05/08, 03/12/2009 Insurance MEDICARE PART A AND B [employer] Care Teams Aircraft Structural Design Engineer Relationship Specialty Start Date End Date Roel Roa MD [address] [place] [address] PCP - General 10/27/01
--- OUTSIDE RECORDS SUMMARY | 2025-06-20 00:52 | XMS_ITS | Clinical Summary ---
Author Organization [facility] [address] [facility] [address] Address [address] [place] [address] Care Team Providers Care Farmer Diversified Crops Name Role Phone Florencio Kilgore NP Primary Care Provider [phone] Allergies Active Allergy Reactions Criticality Noted Date [...] 3 5 Active furosemide (LASIX) 20 mg tabletIndicatio ns:Bilateral lower extremity edema Take 1 tablet (20 mg total) by mouth daily as needed (swelling) 90 tablet 3 5 11/25/19 26 Active metoprolol tartrate (LOPRESSOR) 25 mg immediate release tablet Take 0.5 tablets (12.5 mg total) by mouth 2 (two) times a day 90 tablet 3 5 Active lisinopriL (PRINIVIL,ZESTR IL) 10 mg tablet Take 1 tablet (10 mg total) by mouth daily 90 tablet 1 5 Active lisinopriL (PRINIVIL,ZESTR IL) 10 mg tablet Take 1 tablet (10 mg total) by mouth daily 90 tablet 3 5 06/03/20 25 Discontinu ed(Reorder ) Hospital, Clinic, or Other Facility Administered Medication Ordered Dose Route Frequency Start Date End Date Status aminophylline 250 mg/10 mL injection 100 mgIndications:Coronary artery disease of [place] artery of [place] heart with stable angina pectoris 100 mg IV Once 06/13/2025 06/13/2025 En ded Active Problems Problem Noted Date Diagnosed Date [...] artery disease of n ative artery of [place] heart with stable angina pectoris 03/10/2017 Encounters Date Type Department Care Team Description 06/17/2025 Telephone [facility] Cardiology [address] [facility] [address] [place] [phone] Keon El MD 06/14/2025 Results Follow-Up [facility] Cardiology at [address] [place] [address] Dimitry Valdze MD NM MPI SPECT (Rest and/or Stress) Multiple Studies 06/13/2025 10:15 AM WOOD CLUB NECK WHIPPER Ancillary Procedure [facility] Cardiology at [address] [place] [address] Coronary artery disease of [place] artery of [place] heart with stable angina pectoris; Essential hypertension; Claudication 06/06/2025 10:45 AM CDT Office Visit [facility] Cardiology [address] [facility] [address] [place] [phone] Dimitry Valdez MD Coronary artery disease of [place] artery of [place] heart with stable angina pectoris (Primary Dx); Essential hypertension; Hyperlipidemia LDL goal <70; Claudication 05/26/2025 Telephone [facility] Cardiology [address] [facility] [address] [place] [phone] Dimitry Valdez MD Med Refill from Last 3 Months Surgical History Surgery Date Site/Laterality Comments CARDIAC STENT PLACEMENT CARDIAC CATHETERIZATION Medical History Medical History Date Comments Hypertension Heart murmur Hyperlipidemia COPD (chronic obstructive pulmonary disease) Family History Medical History Relation Name Comments [...] Sign Reading Time Taken Comments Blood Pressure 134/66 06/06/2025 11:21 AM CDT Pulse 54 06/06/2025 11:00 AM CDT Temperature 36.7 C (98 F) 05/31/2024 2:16 PM CDT Respiratory Rate 20 05/31/2024 2:16 PM CDT Oxygen Saturation 98% 06/06/2025 11:00 AM CDT Inhaled Oxygen Concentration - - Weight 86.6 kg (191 lb) 06/06/2025 11:00 AM CDT Height 176.5 cm (5' 9.5) 06/06/2025 11:00 AM CD T Body Mass Index 27.8 06/06/2025 11:00 AM CDT Plan of Treatment Health Maintenance [...] Procedure Name Priority Date/Time Associated Diagnosis Comments NM MPI SPECT (REST AND/OR STRESS) MULTIPLE STUDIES Schedule Routine, Read Routine (OP Routine) 06/13/2025 12:36 PM WOOD CLUB NECK WHIPPER Coronary artery disease of [place] artery of [place] heart with stable angina pectoris Essential hypertension Claudication from Last 3 Months Results * NM MPI SPECT (Rest and/or Stress) Multiple Studies (06/13/2025 12:36 PM WOOD CLUB NECK WHIPPER) Anatomical Region Laterality Modality Body N/A Electrocardiogra phy 06/13/2025 10:1 5 AM WOOD CLUB NECK WHIPPER Narrative 06/13/2025 4:40 PM WOOD CLUB NECK WHIPPER [facility] Cardiology [address], [place] [address] [address], [place] [address] [address], [place] [address] P:[phone] P:[phone] MPI Imaging Report Patient Name: MESSI BAKER : 1945 Study Date: 06/13/2025 10:15:00 AM Sex: M Tech: BRIANNA LOYOLAMT Location: [facility] Provider: DIMITRY VALDEZ Height(Cm): 176.5 BSA: Weight(Kg): 86.6 Heart Rate: 121 BMI: 27.8 Order Provider: DIMITRY VALDEZ PHYSICIAN: Primary Care Physician: Florencio Kilgore NP. [facility] [place] Physician: Artur Valdez M.D. Stress Supervision: Artur Valdez M.D. Stress Interpreting Physician: Artur Valdez M.D. PROCEDURES: Pharmacologic SPECT Report: Myocardial perfusion imaging with Tc99M Sestamibi SPECT at rest and stress post regadenoson (Lexiscan) infusion. INDICATIONS: High Cholesterol, Former Smoker, I25.118 Atherosclerotic heart disease of [place] coronary artery with other forms of angina pectoris, I10 Essential (primary) hypertension, and I73.9 Peripheral vascular disease, unspecified. FINDINGS: Procedural Findings: One day rest/stress was used. Tc99m Sestamibi injected IV at rest was 10.5 millicuries 32.8 millicuries of Tc99M Sestamibi injected IV during Lexiscan stress Lexiscan 0.4mg administered IV over 10 seconds. Pharmacologic stress related symptoms and/or side effects during infusion include nausea. Symptoms were resolved with 100 mg of aminophylline IVP. Baseline heart rate was 58 BPM Maximum Heart Rate Achieved was: 97 BPM Baseline blood pressure was 164/84 mmHg Post Stress Blood Pressure was 172/89 mmHg Termination: Protocol complete. Resting ECG: Sinus bradycardia. LVH. Post ECG: No diagnostic ST changes. Arrhythmia: No arrhythmias seen. Perfusion Findings: Abnormal perfusion imaging - see below. Technical quality of study is excellent. Left ventricle cavity size at rest is normal. Left ventricle cavity size with stress is unchanged. A TID of 0.83 was automatically calculated. defect 1: Size is medium. Severity is moderate. Location of defect is in the mid inferior segment, mid inferolateral segment, apical inferior segment and apical lateral segment. Reversibility is full. Type of defect is ischemia. LV Function: Global left ventricular function is normal. Left ventricular ejection fraction is 69 %. CONCLUSIONS: Global left ventricular function is normal. Left ventricular ejection fraction is 69 %. Size is medium. Severity is moderate. Location of defect is in the mid inferior segment, mid inferolateral segment, apical inferior segment and apical lateral segment. Reversibility is full. Type of defect is ischemia. Myocardial perfusion imaging is abnormal. Negative EKG portion of stress test. Electronically Signed By: Dimitry Valdez MD 06/13/2025 4:39:41 PM WOOD CLUB NECK WHIPPER Electronically Signed By: Dimitry Valdez MD 06/13/2025 4:39:41 PM WOOD CLUB NECK WHIPPER Procedure Note Dimitry Valdez MD - 06/13/2025 [facility] [address] [facility] [address] [address] [address] [facility] [address], [place] [address] [address], [place] [address] P:[phone] P:[phone] MPI Imaging Report Patient Name: MESSI BAKER : 1945 Study Date: 06/13/2025 10:15:00 AM Sex: M Tech: BRIANNA LOYOLAMT Location: [facility] Provider: DIMITRY VALDEZ Height(Cm): 176.5 BSA: Weight(Kg): 86.6 Heart Rate: 121 BMI: 27.8 Order Provider: DIMITRY VALDEZ PHYSICIAN: Primary Care Physician: Florencio Kilgore NP. [facility] [place]ician: Artur Valdez M.D. Stress Supervision: Artur Valdez M.D. Stress Interpreting Physician: Galina Moore PROCEDURES: Pharmacologic SPECT Report: Myocardial perfusion imaging with Tc99M Sestamibi SPECT at rest and stresspost regadenoson (Lexiscan) infusion. INDICATIONS: High Cholesterol, Former Smoker, I25.118 Atherosclerotic heart disease ofnative coronary artery with other forms of angina pectoris, I10 Essential (primary)hypertension, and I73.9 Peripheral vascular disease, unspecified. FINDINGS: Procedural Findings: One day rest/stress was used. Tc99m Sestamibi injected IV at rest was 10.5 millicuries 32.8 millicuries of Tc99M Sestamibi injected IV during Lexiscan stress Lexiscan 0.4mg administered IV over 10 seconds. Pharmacologic stress related symptoms and/or side effects duringinfusion include nausea. Symptoms were resolved with 100 mg of aminophylline IVP. Baseline heart rate was 58 BPM Maximum Heart Rate Achieved was: 97 BPM Baseline blood pressure was 164/84 mmHg Post Stress Blood Pressure was 172/89 mmHg Termination: Protocol complete. Resting ECG: Sinus bradycardia. LVH. Post ECG: No diagnostic ST changes. Arrhythmia: No arrhythmias seen. Perfusion Findings: Abnormal perfusion imaging - see below. Technical quality of study isexcellent. Left ventricle cavity size at rest is normal. Left ventricle cavity size withstress is unchanged. A TID of 0.83 was automatically calculated. defect 1: Size is medium. Severity is moderate. Location of defect is in the midinferior segment, mid inferolateral segment, apical inferior segment and apical lateralsegment. Reversibility is full. Type of defect is ischemia. LV Function: Global left ventricular function is normal. Left ventricular ejectionfraction is 69 %. CONCLUSIONS: Global left ventricular function is normal. Left ventricular ejectionfraction is 69 %. Size is medium. Severity is moderate. Location of defect is in the midinferior segment, mid inferolateral segment, apical inferior segment and apical lateralsegment. Reversibility is full. Type of defect is ischemia. Myocardial perfusion imaging is abnormal. Negative EKG portion of stress test. Electronically Signed By: Dimitry Valdez MD 06/13/2025 4:39:41 PM WOOD CLUB NECK WHIPPER Electronically Signed By: Dimitry Valdez MD 06/13/2025 4:39:41 PM WOOD CLUB NECK WHIPPER Dimitry Valdez MD IMG NM PROCEDURES Final R esult from Last 3 Months Insurance MEDICARE Tagent MEDICARE FOR LIFE MEDICARE FOR LIFE Care Teams Farmer Diversified Crops Relationship Specialty Start Date End Date Florencio Kilgore NP [address] [place] [address] PCP - General Nurse Practitioner 06/06/25
--- OUTSIDE RECORDS SUMMARY | 2025-06-20 00:52 | XMS_ITS | Encounter Summary ---
Author Organization [facility] Address 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 diff 07/04/2024 07/03/2024 07/04/2024 2:55 PM MIXER OPERATOR TABLETS documented as of this encounter Care Teams Agent Licensing Clerk Relationship Specialty Start Date End Date Roel Roa MD [address] [place] [address] PCP - General 10/27/01 documented as of this encounter
--- OUTSIDE RECORDS SUMMARY | 2025-06-20 00:52 | XMS_ITS | Encounter Summary ---
Author Organization [facility] Address [address] [place] [address] Care Team Providers Care Life Underwriter Name Role Phone Roel Roa MD Primary Care Provider [phone] Encounter Details Date Type Department Care Team (Late st Contact Info) Description 12/18/2001 Outpatient Historical Division of Neurology [address] [place] [address] Brandon Davies MD [address] [facility] [address] [place] [address] Social History Tobacco Use Types Packs/Day Years Used Date Smoking Tobacco: Never Assessed Sex and Gender Information Value Date Recorded Sex Assigned at Not on file Legal Sex Male 5:25 AM TOBACCO STEMMER Gender Identity Not on file Sexual Orientation Not on file documented as of this encounter Plan of Treatment Not on file documented as of this encounter Visit Diagnoses Not on filedocumented in this encounter Additional Health Concerns Infection Onset Date Last Indicated Resolved Time C Diff 07/03/2024 08/18/2024 10/17/2024 1:17 AM CDT R/O C. diff 07/04/2024 07/03/2024 07/04/2024 2:55 PM TOBACCO STEMMER documented as of this encounter Care Teams Life Underwriter Relationship Specialty Start Date End Date Roel Roa MD [address] [place] [address] PCP - General 10/27/01 documented as of this encounter
--- OUTSIDE RECORDS SUMMARY | 2025-06-20 00:52 | XMS_ITS | Encounter Summary ---
Author Organization [facility] Address [address] [place] [address] Care Team Providers Care Clerical Aide Teacher Name Role Phone Roel Roa MD Primary Care Provider [phone] Encounter Details Date Type Department Care Team (Latest Contact Info) Description 10/27/2001 Outpatient Historical HIS CARDIOPULMONARY Brandon Davies MD [address] [address] DIZZINESS AND GIDDINESS (Primary Dx) Social History Tobacco Use Types Packs/Day Years Used Date Smoking Tobacco: Never Assessed Sex and Gender Information Value Date Recorded Sex Assigned at Not on file Legal Sex Male 5:25 AM SCALLOP SHUCKER Gender Identity Not on file Sexual Orientation Not on file documented as of this encounter Plan of Treatment Not on file documented as of this encounter Visit Diagnoses Diagnosis Dizziness and giddiness- Primary documented in this encounter Additional Health Concerns Infection Onset Date Last Indicated Resolved Time C Diff 07/03/2024 08/18/2024 10/17/2024 1:17 AM CDT R/O C. diff 07/04/2024 07/03/2024 07/04/2024 2:55 PM SCALLOP SHUCKER documented as of this encounter Care Teams Clerical Aide Teacher Relationship Specialty Start Date End Date Roel Roa MD [address] [place] [address] PCP - General 10/27/01 documented as of this encounter
[2025-06-20 10:23] LABS: Hematocrit 38.7 % (42.0-52.0); Hemoglobin 12.3 g/dL (14.0-18.0); Immature Granulocyte Percent A 0.4 % (0-0.5); Lymphocytes Absolute Auto 0.90 K/mm3 (0.9-3.2); Mean Corpuscular HGB Conc 31.8 g/dl (32-36); Mean Corpuscular Hemoglobin 26.7 pg (26-34); Mean Corpuscular Volume 83.9 fl (80-100); Nucleated Red Blood Cells Absolute Auto 0.000 K/mm3 (0.0-0.012); Nucleated Red Blood Cells Perc 0.0 % (0.0-0.2); Platelet Count Result 165 k/mm3 (150-375); Red Blood Count 4.61 M/mm3 (4.6-6.20); White Blood Count 4.6 K/mm3 (4.5-10.0)
[2025-06-20 10:51] LABS: Anion Gap 8 mmol/L (4-12); Blood Urea Nitrogen 15 mg/dL (9-20); Calcium 9.3 mg/dL (8.4-10.2); Carbon Dioxide 31 mmol/L (22-30); Chloride 103 mmol/L (98-107); Estimated Glomerular Filt Rate > 60; Glucose 89 mg/dL (65-110); Potassium 3.4 mmol/L (3.4-5.0); Sodium 142 mmol/L (137-145)
--- NOTE | 2025-06-20 12:12 | WPDCARDPROC ---
Cardiac Cath Procedure Note Date of procedure:: 06/20/25 Performing physician:: CATHETERIZATION LABORATORY REPORT Procedure Date: 06/20/2025 Referring Physician: Dr. Virk Anesthesia: Versed and Fentanyl were ordered and given in my presence at 1129, procedure ended at 1150. Supervision of nurse, Asha Millan monitored moderate sedation with 2mg Versed and 100mcg Fentanyl was provided for 21 minutes. Pre-op Diagnosis: Abnormal stress test Post-op Diagnosis: False-positive abnormal stress test Procedure(s): Left heart catheterization with coronary angiography Access Site: Right radial artery Brief History and Clinical Indications: All risks, benefits and alternatives to left heart catheterization with or without percutaneous coronary intervention was discussed at length with the patient. Risk of complications including but not limited to bleeding, infection, arrhythmia, stroke, worsening kidney function, blood loss, groin hematoma, limb loss, emergency coronary artery bypass grafting, and even were discussed with the patient and all questions were answered. The patient understood and wished to proceed. Time out called, patient name, date of , medical record number, allergies, procedure performed, identify Transmission Line Engineer, patient and staff member concurred with accurate data, procedure carried on. Findings: LEFT HEART CATHETERIZATION FINDINGS: 1. Left main: The left main coronary artery is widely patent without any significant obstructive disease. 2. Left anterior descending: The LAD and the diagonal branches have mild luminal irregularities without any significant obstructive angiographic disease. There is a patent stent in the mid LAD. 3. Left circumflex: The left circumflex artery and the main marginal branches have mild luminal irregularities without any significant obstructive angiographic disease. 4. Right coronary artery: The RCA is a large dominant vessel with luminal irregularities. 5. Left ventricle: A. End-diastolic pressure 18 mmHg. B. LV gram deferred. C. No significant gradient across aortic valve on catheter pullback. 6. Opening AO pressure 145/75 and closing AO pressure 134/80 Description of Procedure: Informed consent signed and placed in the chart. Patient transferred to wood and wood products labourer room. Prepped and draped in usual sterile fashion. 2% lidocaine injected subcutaneously in right wrist area. 22-gauge venipuncture catheter used to access the right radial artery with the Seldinger technique. 6-FR slender sheath placed in right radial artery. Nitroglycerin 200mcg, Verapamil 2.5mg, and Heparin 5000U was given intraarterial through the sheath. J wire was unable to be advanced and switched out for a baby-j wire which was advanced under fluoroscopy. There was significant tortuosity in the right subclavian artery. The 5F Ultra diagnostic catheter was switched out for a 5F JR4 diagnostic catheter. A small injection was performed for visualization followed by exchange of the baby-j wire for a wholey wire. The wholey wire was then negotiated into the aortic root. The JR4 diagnostic catheter was then used to engage the right coronary artery. It was then used to cross aortic valve. The JR4 diagnostic catheter was then switched out for a JL 3.5 diagnostic catheter to engage the left main coronary artery. Multiple orthogonal angiogram obtained and reviewed. Hemostasis was achieved by application of TR band. Assessment: Patent LAD stent Nonobstructive CAD Post Operative Condition: Stable No significant blood loss Disposition: Home Plan: The above findings were discussed with the referring physician. Continue aggressive medical therapy and risk factor modification. Keon El Interventional Cardiology
--- NOTE | 2025-07-02 13:52 | WPDMODSED ---
Moderate Sedation Note-Pt Data Patient Data Allergies Allergy/AdvReac Type Severity Reaction Status Date / Time ibuprofen Allergy Unknown Swelling Verified 03/06/25 12:55 Home Medications ?Medication ?Instructions ?Recorded ?Confirmed ?Type aspirin 81 mg tablet,delayed 81 mg PO DAILY 06/19/20 06/19/25 History release (Adult Aspirin Regimen) atorvastatin 40 mg tablet 40 mg PO DAILY 06/19/20 06/19/25 History metoprolol tartrate 25 mg tablet 12.5 mg PO BID 06/19/20 06/19/25 History omeprazole 20 mg capsule,delayed 20 mg PO DAILY 06/19/20 06/19/25 History release amlodipine 5 mg tablet (Norvasc) 5 mg PO DAILY 01/13/24 06/19/25 History cholecalciferol (vitamin D3) 25 25 mcg PO DAILY 01/13/24 06/19/25 History mcg (1,000 unit) tablet cyanocobalamin (vitamin B-12) 500 500 mcg PO DAILY 01/13/24 06/19/25 History mcg tablet folic acid 1 mg tablet 1 mg PO DAILY 01/13/24 06/19/25 History lisinopril 10 mg tablet 10 mg PO DAILY 01/13/24 06/19/25 History sertraline 100 mg tablet (Zoloft) 100 mg PO DAILY 01/13/24 06/19/25 History Sedation/Anesthesia: No previous sedation/anesthesia problems (including family history). [facility] Past Medical History Medical History (Updated 03/15/25 @ 13:59 by Florencio Kilgore APRN) Clostridial gastroenteritis Microvascular cranial nerve palsy BMI 29.0-29.9,adult Cranial nerve III palsy, partial, right Diplopia Suspected 2019-nCoV infection COPD (chronic obstructive pulmonary disease) Family History Family History (Updated 11/06/24 @ 09:22 by NAJMA Sandy) Father , natural causes. No problems noted. Mother , Natural causes. No problems noted. Sibling No problems noted. Other Family history non-contributory Social History Social History (Updated 11/06/24 @ 09:23 by NAJMA Sandy) Smoking packs per day: 4 Smoking cigarettes per day: 80.0 Years smoked: 50 Smoking pack-years: 200.00 Smoking status: Former smoker Tobacco type: cigarettes Second hand tobacco smoke exposure: Yes Smoking end date: 03/24/05 Alcohol intake: former Drinks per week: 4 Alcohol use details: beer Substance use: never Substance use type: does not use Do You Feel Safe in your Home?: Yes Lack of Transportation: No Lack of Food: Never True Current Housing: I Have Housing Concerned About Future Housing: No Difficulty Paying Gas/Electric Bills: No Difficulty Paying for Meds: No Currently Unemployed: No Education: Trade/Vocational Certificate Difficulty w/ Childcare or Family Care: No Living arrangements: with family Additional living arrangements 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 Patient re-evaluated immediately prior to sedation.
== END 2025-06-20 16:42 | disposition home or self-care (01) ==
PROVIDERS: PCP Nurse Practitioner; Visit Provider Internal Medicine
PROC: 4A023N7 Measurement of Cardiac Sampling and Pressure, Left Heart, Percutaneous Approach (ICD-10-PCS; CPT 93452; principal; 2025-06-20 11:30)
DX: I25.10 Atherosclerotic heart disease of native coronary artery without angina pectoris (principal); R94.39 Abnormal result of other cardiovascular function study; Z95.5 Presence of coronary angioplasty implant and graft
CPT/HCPCS: 36415; 80048; 85025; 93458; C1769; C1887; C1894; J1644; J2003; J2250; J2305; J3010; J7040